=== PATIENT | male | born 1935 | race Caucasian/White ===

== ENCOUNTER 2023-09-30 04:48 | Inpatient (IN) ==
[2023-09-30] MEDS ORDERED: PHARMACIST DISCHARGE MED REC CONSULT PRN (13:07)
--- NOTE | 2023-09-30 13:21 | History & Physical Report ---
Date of Service September 30, 2023 Assessment & Plan (1) Stroke-like symptoms: Plan: -Admit to med/tele -Currently stable and back to his neurologic baseline per family at [facility] -Initially presented to the [place] ED due to an episode of starring off and not responding to his . Episode lasted approximately 30 min and resolved by the time EMS arrived. -Vitals and labs were unremarkable -CT of the head/brain and CTA of the head were negative for acute findings -CTA of the neck noted BL carotid disease without significant narrowing or stenosis -At this time the etiology of the patient's episode of altered consciousness is unknown but the differential includes and is not limited to acute CVA, complication from his known vascular dementia, anxiety, behavioral disturbance -The ED discussed with [facility] Neurology who recommended MRI for further evaluation >Patient was accepted to the [facility] Hospital[facility] team as it was unknown at that time that the patient's PCP is a [facility] Provider -Spoke with MRI as the patient had a Pacemaker placed; unfortunately the patient's pacemaker is NOT MRI compatible due to one of his Medtronic leads -Was given full dose aspirin at [place] ED -Will wait to continue Eliquis and Aspirin until we speak with [facility] with his abnormal ECG on arrival -Will obtain TTE for further evaluation -Follow am A1c and fasting lipid panel -Will order dysphagia screen prior to ordering diet -Q4H neuro checks -Fall precautions -PT/OT consults placed -AM CBC, BMP, Mag, PT/INR (2) Abnormal ECG: Plan: -ECG obtained on admission shows an atrial paced rhythm nonspecific intraventricular block concerning for possible pacemaker failure -Patient has been asymptomatic since arrival to our facility -Admission labs are currently in process, will follow up -Will consult [facility] Cardiology for further assistance and treatment (3) Vascular dementia: Plan: -Continue Namenda and Donepezil (4) HTN (hypertension): Plan: -Currently stable -Continue (5) Dyslipidemia: Plan: -Currently on 20 mg HS simvastatin QHS -Follow fasting lipid panel and adjust dosing as needed (6) Carotid atherosclerosis: Plan: -Noted on CTA of the neck per transfer records from [facility] -No significant stenosis to warrant urgent treatment -Would speak with Vascular surgery prior to discharge to arrange outpatient follow up (7) Atrial fibrillation: Plan: -Currently in an atrial paced rhythm with new, nonspecific intraventricular block -Did have HS dose of Eliquis last night and am dose of cardiac meds per transfer records -Will speak with Cardiology to determine which medications to continue at this tme -Continue to monitor on tele (8) S/P placement of cardiac pacemaker: Plan: -Follow pacemaker interrogation -Cardiology consulted (9) Hypothyroidism: Plan: -Continue levothyroxine (10) BPH (benign prostatic hyperplasia): Plan: -Continue finasteride Plan The patient was discussed with Dr. Loredo at the time of the admission History of Present Illness Chief Complaint: Stroke workup Primary Care Provider: DO Александр Paez Jr. 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 History was obtained through discussions with the patient/family at bedside and the transfer documentation provided. Between [id number] on 09/28/23 the patient sat at the kitchen table in preparation to eat lunch. His sat down next to him and noticed that he was not responding to her questions and was starring off. She denies seeing other focal neurologic defects such as facial droop, increased slurred speech compared to baseline, and unilateral weakness. Due to the ongoing episode she called EMS who responded approximately 30 min after the episode began. When EMS arrived the patient was responding appropriately and acting himself per family. On arrival to the [place] ED he was noted to be stable and neurologically intact. Labs including CBC, CMP, high sen trop, and UA were unremarkable. ECG was read as an atrial paced rhythm with possible right ventricular conduction delay. CT head/brain wo con was read as negative for acute findings. CT head/brain w/wo con was read as showing mild atherosclerotic disease without significant stenosis. CTA of the neck was read as showing Moderate atherosclerotic changes noted in the aortic arch and the vessels of the neck in the form of densely calcified plaques. Major changes are noted at the levels of carotid bulbs as mentioned but normal opacification is noted of both internal carotid vessels with almost 50% luminal narrowing and contrast seen opacifying the distal course as well. Both subclavian arteries show atheromatous changes at origin. Left subclavian shows a segment of 7.8 mm segment with almost 70-80% narrowing, however, left vertebral artery shows normal opacification and caliber. Right vertebral artery is unremarkable." Per the transfer documentation, the ED provider spoke with a Dr. Robb of [facility] who recommended loading the patient with aspirin and obtaining an MRI of the brain for further evaluation. The patient was loaded with aspiring and did continue to receive his normal home medications including Eliquis, simvastatin, metoprolol, amiodarone, amlodipine, and lisinopril. They reportedly did not have the capability to perform the MRI at [facility] and the patient was reportedly accepted to [facility], but they could not get the MRI until 10/01. The patient was subsequently transferred to [facility] under the [facility] Hospitalist team, despite the patient being a [facility] Patient; this was apparently unknown at the time of transfer acceptance. At the time of the exam the patient was lying in bed in no acute distress with his and Son sitting bedside. History was mainly obtained from the patient's family with his hx of dementia. They confirm the above history and confirm that the patient is currently at his neurologic baseline. His neurologic baseline is reportedly alert and oriented to person, place, and event. He does slur his words at baseline and will take extra time to speak intermittently. He has never smoke and occasionally used alcohol in the past, but they deny significant alcohol use. His states that the patient was recently started on 200 Amiodarone BID with plans to taper to 200 mg Daily starting on 10/02/23 after a recent abnormal heart rhythm noted on his pacemaker. The patient currently has zero complaints. They deny recent fever, chills, chest pain, coug h, SOB, abd pain, nausea,vomiting, diarrhea, dysuria, hematuria, melena, LE swelling, and recent trauma. They confirm he is a DNR/DNI. [facility] Hospitalist team spoke with the [facility] Hospitalist team, appreciate their assistance. They are in agreement with taking over care of the patient on 10/01/23 as they were not involved in discussions for the initial transfer from [facility]. Please refer to Dr. Loredo's attestation for any changes to the treatment plan Allergies Allergy/AdvReac Type Severity Reaction Status Date / Time No Known Allergies Allergy Unknown ? Verified 12/07/08 14:04 Home Medications Medication Instructions Recorded Confirmed Type Amlodipine (Norvasc) 10 mg PO DAILY ##0 01/26/09 09/30/23 History GLUCOSAMINE 2 tab PO DAILY ##0 01/26/09 History Multivitamin 1 tab PO DAILY ##0 01/26/09 History Eliquis 2.5 mg PO BID 09/30/23 09/30/23 History amiodarone 200 mg tablet 200 mg PO BID 09/30/23 09/30/23 History donepezil 10 mg PO DAILY 09/30/23 09/30/23 History finasteride 5 mg tablet 5 mg PO DAILY 09/30/23 09/30/23 History levothyroxine 50 mcg tablet 50 mcg PO DAILY 09/30/23 09/30/23 History lisinopril 20 mg tablet 20 mg PO BID 09/30/23 09/30/23 History memantine 5 mg tablet 5 mg PO BID 09/30/23 09/30/23 History metoprolol succinate 25 mg 25 mg PO DAILY 09/30/23 09/30/23 History tablet,extended release 24 hr simvastatin 20 mg PO HS 09/30/23 09/30/23 History tamsulosin 0.4 mg capsule 0.4 mg PO DAILY 09/30/23 09/30/23 History Past Med/Surg History Social History Second Hand Exposure: No; Do You Dip or Chew Tobacco: No; Tobacco Cessation Education Requested by Patient: No Hx Alcohol Use: No Hx Substance Use: No Preferred Language: Beninese Communication Ability: Impaired 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 Beliefs That Will Affect Care: None Current Living Situation: Spouse Other Information That Helps Us Care for You: No Feels Safe at Home: No Is there a partner from a previous relationship who is making you feel unsafe now?: No Any Concerns about Your Family Situation: No Would You Like to Speak to Someone About Your Situation: No Safety Concerns: Feels Safe At This Time Assistive Devices: Stair Lift Physical Exam Physical Exam: Physical Exam: General: In no acute distress, stated age, chronically ill appearing but non- toxic HEENT: Normocephalic, atraumatic, BL temporal wasting noted, no scleral icterus, pupils around round, symmetrical, and reactive to light, moist mucus membranes, trachea midline, no thyromegaly Chest/Pulm: Patient with pacemaker placement site in the left upper chest which appears intact and without sings of infection, No respiratory distress, symmetrical chest expansion, clear breath sounds throughout Cardiac: RRR, 3/6 systolic murmur noted Abdomen: Negative for ascites and bruising, normoactive bowel sounds, soft, non-tender to palpation throughout Musculoskeletal: Symmetrical and without signs of acute trauma, upper and lower extremities with full ROM, no atrophy, spasticity, or flaccidity Extremities: Radial, dorsalis pedis, and posterior tibial pulses are intact and symmetrical, no edema noted in the BL LE's Skin: Warm, dry, no rashes , lesions, or scars noted Neuro: Alert and oriented to person, place, month, but not to month or year, no focal defects, CN II-XII tested and intact, negative cerebellar testing and pronator drift BL, no tremors noted Psych: No acute distress, calm and cooperative during the exam Results & Data Results & Data ECG Additional Comments: Suspect unspecified pacemaker failure Atrial-paced rhythm Non-specific intra-ventricular conduction block Cannot rule out Septal infarct , age undetermined Abnormal ECG When compared with ECG of 24-MAR-2010 12:10, Electronic atrial pacemaker has replaced Sinus rhythm Code Status & VTE Plan Code Status DNR/DNI VTE Prophylaxis Plan VTE Prophylaxis will be ordered: Yes Supervising Physician Co-Signing Physician Notes Patient seen and examined, chart reviewed, case discussed with Price Stapleton PA-C and I agree with the assessment and plan as above except as otherwise noted Labs and images reviewed Will convert is a 88-year-old male with a past medical history of strokelike symptoms, vascular dementia, hypertension, hyperlipidemia, CAD, A-fib and s/p pacemaker placement 08/06/2023. He was seen at [facility] for strokelike sym ptoms. He was initially referred via the transfer center to [facility] for completion of a stroke evaluation with an MRI as MRI was not available at that institution. He was subsequently excepted and arrived next day due to transportation difficulty. Patient had increased slurred speech and confusion last approximately 30 minutes and resolved by time of hospital assessment. CT/CTA head were unremarkable. Upon arrival to [facility] and on further history and physical patient is not able to obtain an MRI as his recent pacemaker is not MRI compatible due to the leads. Remains at baseline at time of afternoon reevaluation. EKG with nonspecific IvyBlock? Pacemaker failure, was discussed with [facility] cardiology was consulted and will follow for any adjustments if needed. Interrogation is pending. History is limited from patient due to dementia, somewhat tangential exam but is aphasia and has intermittent slightly slurred speech. Post Closing Specialist strength/hip flexion is intact bilaterally although pat ient fatigues extremely easily. Stock murmur is present. Lungs are clear. even if MRI were to show a stroke he does not have evidence of a bleed or large vessel occlusion and agree with continuing aspirin/Eliquis/statin with dose based on lipid panel and blood pressure control. 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 agree with assessment and management as above. [facility] Care Time/CCT Total # of Minutes Spent Total Time Spent with Patient: Total time spent is greater than 50% in coordination of care (as documented) at patient's floor/unit and/or counseling patient: [place] [address] INT INP/OBS CARE 3/75MIN Patient Type New Medical Decision Making High Complexity Diagnoses Stroke-like symptoms R29.90 Abnormal ECG R94.31 Vascular dementia F01.50 HTN (hypertension) I10 Dyslipidemia E78.5 Carotid atherosclerosis I65.29 Atrial fibrillation I48.91 S/P placement of cardiac pacemaker Z95.0 Hypothyroidism E03.9 BPH (benign prostatic hyperplasia) N40.0
--- OUTSIDE RECORDS SUMMARY | 2023-09-30 13:22 | External Medical Summary | Summary of Care ---
Author Name Unknown Organization [facility] Address [address] [place] [address] Phone [phone] Care Team Providers Care Sampler And Test Preparer Name Role Phone Leilani Tomas DO Primary Care Provider Un available Reason for Visit * Reason Comments eRx-Medication Refill Encounter Details Date Type Department Care Team (Late st Contact Info) Description 08/13/2023 Refill Family Practice [facility] [address] [place] [address] Moon Tavares DO [address] [facility] [place] [address] Essential hypertension with goal blood pressure less than 140/90 Allergies No known active allergiesdocumented as of this encounter (statuses as of 08/14/2023) Medications Medication Sig Dispensed Refills Start Date End Date Status CENTRUM PO TABS 1 daily 0 Active lisinopril (PRINIVIL) 20 MG TabletIndications:Hyp ertension goal BP (blood pressure) < 140/90 Take 1 Tab by mouth 2 times a day. 180 Tab 3 10/25/2016 Active Tamsulosin HCl 0.4 MG Oral Capsule (Flomax)Indications:B PH with urinary obstruction,Urinary retention Take 1 Capsule by mouth in the morning. Every morning.. 90 Capsule 3 12/20/2022 Active Finasteride 5 MG Oral Tablet (Proscar)Indications: BPH with urinary obstruction,Urinary retention Take 1 Tablet by mouth in the morning. 90 Tablet 3 12/20/2022 Active Donepezil HCl 10 MG Oral Tablet (Aricept)Indications: Memory loss,MCI (mild cognitive impairment) TAKE 1 TABLET BY MOUTH ONCE DAILY. Take with largest meal of the day. 90 Tablet 3 01/08/2023 Active Simvastatin 20 MG Oral Tablet (Zocor)Indications:Dy slipidemia, goal LDL below 100 TAKE 1 TABLET BY MOUTH AT BEDTIME 90 Tablet 2 02/26/2023 Active Metoprolol Tartrate 25 MG Oral Tablet (Lopressor) Take 0.5 Tablets by mouth in the morning. 0 Active Memantine HCl 5 MG Oral Tablet (Namenda)Indications: Memory loss TAKE 1 TABLET BY MOUTH TWICE DAILY 180 Tablet 1 05/16/2023 Active Glucosamine 500 MG Oral Capsule Take 1 Capsule by mouth daily at noon. 0 Active Levothyroxine Sodium 50 MCG Oral Tablet (Levoxyl)Indications: Subclinical hypothyroidism TAKE ONE TABLET BY MOUTH DAILY at least 30 minutes prior to breakfast or other meds. 90 Tablet 3 06/28/2023 Active amLODIPine Besylate 5 MG Oral Tablet (Norvasc)Indications: Essential hypertension with goal blood pressure less than 140/90 Take 1 Tablet by mouth in the morning. 90 Tablet 1 08/03/2023 Active amLODIPine Besylate 5 MG Oral Tablet (Norvasc)Indications: Essential hypertension with goal blood pressure less than 140/90 Take 1 Tablet by mouth in the morning. 90 Tablet 1 08/14/2023 Active documented as of this encounter (statuses as of 08/14/2023) Active Problems Problem Noted Date Diagnosed Date Other pancytopenia 06/27/2023 Supraventricular tachycardia 03/07/2023 Dementia of the Alzheimer's type, with late onset, uncomplicated 11/21/2021 Other atherosclerosis of rommel humza arteries of extremities, bilateral legs 11/21/2021 BPH without obstruction/lower urinary tract symp toms 02/06/2020 Sigmoid diverticulosis 12/09/2019 Overview: Noted on colonoscopy in 2012. Internal hemorrhoid 12/09/2019 Overview: Noted on colonoscopy 2012. 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 Cerebrovascular disease 07/23/2017 MCI (mild cognitive impairment) 07/23/2017 Essential hypertension with goal blood pressure less than 140/90 04/03/2016 Subclinical hypothyroidism 04/03/2016 History of PSVT (paroxysmal supraventricular tac hycardia) 09/25/2012 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) 09/29/2010 OSTEOARTHRITIS S/P TOTAL KNEES, 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), LE FT (03/19) 09/29/2010 documented as of this encounter (statuses as of 08/14/2023) Resolved Problems Problem Noted Date Diagnosed Date Resolved Date Lower GI bleed 12/15/2019 02/06/[address] scan, kidney 12/15/201906/2020 Bladder stone 12/15/2019 02/06/2020 Distended bladder 12/15/2019 02/06/2020 Blood in stool 12/09/2019 02/06/2020 Ventricular tachycardia 01/23/201901/10 Sebaceous cyst 04/02/2017 01/28/2018 Overview: Neck Elevated TSH 12/23/2013 04/03/2016 Acute prostatitis 12/17/2012 06/24/2013 Overview: Treated 11/20 Overweight (BMI 25.0-29.9) 09/25/2012 0 03/18/2015 Hypertension goal BP (blood pressure) < 140/90 05/21/2012 04/03/2016 Obesity, Class I, 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 (see actual BMI) 10/17/2011 09/25/2012 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 12/1901/10/2011 05/21/2012 OVERWEIGHT 09/29/2010 10/17/2011 EPISODE OF HYPERTENSIVE ENCEPHALOPATHY (2004) 09/29/19 11 03/03/2020 OSTEOARTHRITIS S/P TOTAL KNEE ON 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) 09/29/19 11 09/29/2010 EPISODE OF UVEITIS (1984) 09/29/2010 OCCASIONAL PVC's ON EKG 09/29/201009/11 HTN, goal below 130/80 03/30/201010/17 GENERAL OSTEOARTHRITIS 03/30/201009/29 FAMILY HX OF CEREBROVASCULAR DISEASE 03/30/2010 05/21/2012 Screening for prostate cancer 03/30/2010 05/21/2012 Dyslipidemia, goal LDL below 130 09/29/2010 documented as of this encounter (statuses as of 08/14/2023) Immunizations Name Administration Dates Next Due COVID-19 mRNA, LNP-s, No Pre serve, 2-Dose Series (Pfizer) 07/14/2021,10/24/2020,10/03/2020 Diptheria/Tetanus (Adult) 06/22/2006 Pneumococcal Conjugate Vacc, 13 Valent (Prevnar) 11/19/2015 Pneumococcal Polysaccharide PPV23 (Pneumovax) 07/23/2017,03/18/2007 Season Influenza, Quad, PF, Adjuvanted, 65+ Yrs, IM (FLUAD) 05/19/2020 Seasonal Influenza, Quadriva lent Hd (Fluzone Hd) 06/22/2023,07/03/2022,05/13/2021 Seasonal Influenza, Split, I IV3, With Preserve, Inj 07/06/2015,05/18/2014,06/24/2013,05/29,06/06/2011,07/11/2010,06/22/2006 Seasonal Influenza, Trivalen t, Adjuvanted, 65+ yrs 07/09/2019,06/11/2019 Seasonal Influenza, Trivalen t, High Dose, No Preserve, IM 06/07/2018,06/13/2017,07/10/2016 TDAP (age 10 and older)(Boostrix) 07/30/2015 Varicella Zoster Vaccine (Adult) 06/10/2010 Zoster Vaccine Recombinant (Shingrix) 03/19/2021 ,10/24/2020 documented as of this encounter Social History Tobacco Use Types Packs/Day Years Used Date Smoking Tobacco: Never Smokeless Tobacco: Never Alcohol Use Standard Drinks/Week Comments Yes 0 (1 standard drink = 0.6 oz pur e alcohol) rarely PHQ-2 Answer Date Recorded PHQ Adult Total Score 0 04/06/2022 Hunger Vital Sign Answer Date Recorded Within the past 12 months, y ou worried that your food would run out before you got the money to buy more. Never true 04/06/20 22 Within the past 12 months, t he food you bought just didn't last and you didn't have money to get more. Never true 04/06/2022 Sex and Gender Information Value Date Recorded Sex Assigned at Male 04/06/2022 8:23 AM EDT Gender Identity Male 04/06/2022 8:23 AM EDT Sexual Orientation Straight 04/06/2022 8: 23 AM EDT Job Start Date Occupation Industry Not on file Not on file Not on file documented as of this encounter Miscellaneous Notes * Telephone Encounter - Eugenio Chi [facility] - 08/14/2023 4:58 AM ESTSigned Prescriptions: Disp Refills amLODIPine Besylate 5 MG Oral Tablet (Norv*90 Tab*1 Sig: Take 1Tablet by mouth in the morning.Authorizing Provider: MOON TAVARES User: EUGENIO CHI * Telephone Encounter - Eugenio Chi [facility] - 08/14/2023 4:53 AM EST Request for 10mg but pt called into office requesting 5mg tabs since he was taking 1/2 of the 10mg dosage form. Rx was sent. Modified this rx to reflect dosage change. Eugenio Chi [facility] Clinical Pharmacist Telepharmacy [phone] 08/14/2023 4:57 AM documented in this encounter Plan of Treatment Upcoming Encounters Date Type Department Care Team (Late st Contact Info) Description 09/14/2023 1:20 PM EST Office Visit Neurology [facility] [place] [address] [place] [address] Romina Peña PA-C [address] [place] [address] 10/10/2023 11:40 AM EST Office Visit Family Practice [address] [place] [address] Moon Tavares DO [address] [place] [address] Health Maintenance Due Date Last Done Comments Depression Screening 04/06/2023 04/06/2022, 04/03/20 16 COVID-19 Vaccine (2022- season) 2023 07/14/2021, 10/24/2020, 10/03/2020 TSH 06/21/2024 06/21/2023, 0809/2022, 04/30/2023, Additional history exists DTaP,Tdap,and Td Vaccines (2 - Td or Tdap) 07/30/2025 07/30/2015, 06/22/2006 Albumin/Creatinine Ratio 10/10/2025 10/10/2022 Pneumococcal Vaccine: 65+ Years Completed 07/23/2017, 11/19/2015, 03/18/2007 Zoster Vaccines Completed 03/19/2021, 10/11, 06/10/2010 Influenza Vaccine (FLU shot) Completed , 07/03/2022, 05/13/2021, Additional history exists GARDASIL-HPV IMMUNIZATION SERIES Aged Out No longer eligible based on patient's age to complete this topic Hepatitis B Aged Out No longer eligi ble based on patient's age to complete this topic MENINGOCOCCAL (MENACTRA/MENVEO) Aged Out No longer eligible based on patient's age to complete this topic documented as of this encounter Medical Devices Not on filedocumented as of this encounter Visit Diagnoses Diagnosis Essential hypertension with goal blood pressure less than 140/90 documented in this encounter Advance Directives Documents on File Type Date Recorded 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 Question Answer Comments Discussion of Advance Directives occurred with: Not Discussed Does the patient have a Living Will? No Does the patient have Health Care Power of Database Engineer? No Care Teams Sampler And Test Preparer Relationship Specialty Start Date End Date Leilani Tomas DO PCP - General Family Medicine 05/01/22 documented as of this encounter
--- OUTSIDE RECORDS SUMMARY | 2023-09-30 13:22 | External Medical Summary | Summary of Care ---
Author Name Unknown Organization [facility] Address [address] [facility] [address] Phone [phone] Care Team Providers Care Shafting Cleaner Name Role Phone Thom Leilani Parsannajanak Primary Care Provider [phone] Reason for Visit * Reason Comments Return Neuro Dementia Encounter Details Date Type Department Care Team (Latest Contact Info) Description 09/14/2023 1:20 PM EST Office Visit Neurology [facility] [place] [address] [place] [address] Romina Peña PA-C [address] [facility] [place] [address] 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 90 Tablet 1 08/14/2023 Active Apixaban 2.5 MG Oral Tablet (Eliquis) Take by mouth 2 times a day. 0 Active documented as of this encounter (statuses as of 09/14/2023) Active Problems Problem Noted Date Diagnosed Date [...] as of this encounter (statuses as of 09/14/2023) Resolved Problems Problem Noted Date Diagnosed Date [...] as of this encounter (statuses as of 09/14/2023) Immunizations Name Administration Dates Next Due COVID-19 [...] on file documented as of this encounter Last Filed Vital Signs Vital Sign Reading Time Taken Comments Blood Pressure 124/62 09/14/2023 1:13 PM EST Pulse 58 09/14/2023 1:13 PM EST Temperature 36.9 C (98.5 F) 09/14/2023 1:13 PM ES T Respiratory Rate 18 09/14/2023 1:13 PM EST Oxygen Saturation 97% 09/14/2023 1:13 PM EST Inhaled Oxygen Concentration - - Weight 58.3 kg (128 lb 8 oz) 09/14/2023 1:13 PM EST Height - - Body Mass Index 23.89 06/27/2023 6:52 AM EDT documented in this encounter Progress Notes * Romina Peña PA-C - 09/14/2023 1:18 PM EST HISTORY & PHYSICAL EXAMINATION - NEUROLOGY Name: Александр Booker Date: 09/14/2023 Time: 1:18 PM Referring Provider: Leilani Tomas DO Chief Complaint: Chief Complaint Patient presents with Return Neuro Dementia This is a 88 year old right handed gentleman returns today for follow up for dementia. HPI & Source of HPI The patient, family member sone, and spouse was the historian, and they arereliable. He was seen Shon Sanchez 03/23/20. He was seen in 2017 for similar issues by Eben Livingston. Hehelps with the activities home and keep busy in the summer like to be outside. He does require straight cathing for your urinary retention. 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 He was started on Aricept 5 mg daily by his family care provider and is now on 10 mg with dinner. He did loose about 40 pounds but this was intentional. He is a non smoker, was a moderate EtOH drinker none recent, no other drugs, moderate caffeine use. He was started on Namenda 5 mg BID which his states had no side effects and they requested an increase in the dose but was unable to tolerate it. They sold his tricycle motor cycle. He is still having some night time dreams but heis not hitting or wandering off. He wakes his and she reassures him everything is ok and he will go back to sleep. He now has a defibular pacer for what sounds like sami/tachy syndrome. He is stable from previous visit. He has developed a night time cough which continues until he falls asleep. Denies CP, SOB, abdominal pain, one sided weakness, numbness tingling. I have reviewed the patient's medications and allergies, past medical, surgical, social and family history, updating these as appropriate. See Histories section of the electronic medical record for adisplay of this information. 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 Medications: Are you taking your medications? yes Current Outpatient Medications Medication Sig Dispense Refill CENTRUM PO TABS 1 daily lisinopril (PRINIVIL) 20 MG Tablet Take 1 Tab by mouth 2 times a day. 180 Tab 3 Tamsulosin HCl 0.4 MG Oral Capsule (Flomax) Take 1 Capsule by mouth in the morning. Every morning..90 Capsule 3 Finasteride 5 MG Oral Tablet (Proscar) Take 1 Tablet by mouth in the morning. 90 Tablet 3 Donepezil HCl 10 MG Oral Tablet (Aricept) TAKE 1 TABLET BY MOUTH ONCE DAILY. Take with largest mealof the day. 90 Tablet 3 Simvastatin 20 MG Oral Tablet (Zocor) TAKE 1 TABLET BY MOUTH AT BEDTIME 90 Tablet 2 Metoprolol Tartrate 25 MG Oral Tablet (Lopressor) Take 0.5 Tablets by mouth in the morning. Memantine HCl 5 MG Oral Tablet (Namenda) TAKE 1 TABLET BY MOUTH TWICE DAILY 180 Tablet 1 Levothyroxine Sodium 50 MCG Oral Tablet (Levoxyl) TAKE ONE TABLET BY MOUTH DAILY at least 30 minutes prior to breakfast or other meds. 90 Tablet 3 amLODIPine Besylate 5 MG Oral Tablet (Norvasc) Take 1 Tablet by mouth in the morning. 90 Tablet 1 Apixaban 2.5 MG Oral Tablet (Eliquis) Take by mouth 2 times a day. Glucosamine 500 MG Oral Capsule Take 1 Capsule by mouth daily at noon. (Patient not taking: Reported on 09/14/2023) amLODIPine Besylate 5 MG Oral Tablet (Norvasc) Take 1 Tablet by mouth in the morning. 90 Tablet 1 No current facility-administered medications for this visit. Review of patient's allergies indicates: No Known Allergies Review of Systems: A total number of 10 systems were reviewed pertinent negative and positives not addressed in HPI are listed in the following review. Physical Exam: Constitutional: BP 124/62 | Pulse 58 | Temp 36.9 C (98.5 F) (Tympanic) | Resp 18 | Wt 58.3 kg (128 lb 8 oz) | SpO2 97% | BMI 23.89 kg/m | BSA 1.59 m , appearance nourished and healthy Ears, Nose, Mouth and Throat: mucous membranes moist, no injection and skin normal, eyes normal Cardiovascular: irregular Respiratory: clear to auscultation (CTA) and no rales, ronchi or wheeze Musculoskeletal: no peripheral edema Skin: normal and intact Eyes: extraocular muscles intact (EOMI) NEUROLOGIC EXAMINATION: Mental status: Alert and interactive Oriented to person Speech some difficulty with sentence formation Cranial Nerves Normal findings for Cranial Nerves II - XII Coordination: on [id number] Gait/Stance: Posture normal. Gait normal: with steady with steps, base, arm swing, and tandem gait. Motor: Negative for pronator drift of out stretched arms with eyes closed. Strength: Normal - 5/5 all extremities LABORATORY: Recent labs reviewed Review of prior Studies: No recent imaging available. Impression: Александр Booker is a 88 year old gentleman with a history of dementia. His neurologic examination today reveals no new focal deficit. The history and examination are suggestive of diagnosis/problem list. Testing and Referrals ordered: none ICD-10-CM 1. Vascular dementia without behavioral disturbance (HCC) F01.50 2. 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 Medical Decision Making (determined by lowest of 2 of 3 elements): The medical decision making element of the number and complexity of problems addressed included at least 2 or more stable chronic illnesses (level 4). The medical decision making element of risk of complications, morbidity, and mortality of patient management is moderate (level 4) due to prescription drug management (moderate risk). The medical decision making element of the amount and complexity of data reviewed and analyzed included an independent interpretation of a test (level 4 at least). When 2 of 3 reach level 4, then this element is considered extensive (level 5). I personally spent a total of 30 minutes. This time was for a new office or established visit and was on the same calendar day. Education / Consultation - Topics covered as I spent 20 minutes, which is greater than 50% of this visit, counseling the patient on: Diagnostic Results Prognosis Importance of compliance with chosen treatment options Risk factor reductions Patient and family education Consulted with physician: Ryan Stearns MD was available for direct supervision Copy of note sent to PCP and Referring Provider. Total time of visit: 30 minutes. Romina Peña PA-C Neurology [address] [address] 09/14/2023 1:18 PM documented in this encounter Nursing Notes * Lakeisha Mcneil MED ASSIST - 09/14/2023 1:11 PM EST Chief Complaint Patient presents with Return Neuro Dementia documented in this encounter Plan of Treatment Upcoming Encounters Date Type Department Care Team (Late st Contact Info) Description 10/10/2023 11:40 AM EST Office Visit Family Practice [address] [place] [address] [place] [address] Moon Tavares DO [address] [place] [address] 08/21/2024 11:00 AM EST Office Visit Neurology [place] [address] [place] [address] Jihan No PA-C [address] [place] [address] Health Maintenance Due Date Last Done Comments Depression Screening 04/06/2023 04/06/2022, 04/03/20 16 COVID-19 Vaccine ( season) 2023 07/14/2021, 10/24/2020, 10/03/2020 TSH 06/21/2024 [...] as of this encounter Visit Diagnoses Diagnosis Vascular dementia without behavioral disturbance (HCC)- Primary Vascular dementia, uncomplicated Progressive vascular leukoencephalopathy (HCC) Progressive multifocal leukoencephalopathy documented in this encounter Advance Directives Documents on File Type Date Recorded Patient Websphere Architect Expl anation POLST 04/21/2023 [place] DERS FOR LIFE-SUSTAINING TREATMENT Latest Code [...] the patient have Health Care Power of Corporate Analyst? No Care Teams Shafting Cleaner Relationship Specialty Start Date End Date Leilani Tomas DO PCP - General Family Medicine 05/01/22 documented as of this encounter"
--- OUTSIDE RECORDS SUMMARY | 2023-09-30 13:22 | External Medical Summary | Summary of Care ---
Author Name Unknown Organization [facility] Address [address] [place] [address] Phone [phone] Care Team Providers Care Philosophy Lecturer Name Role Phone Leilani Tomas DO Primary Care Provider Un available Reason for Visit * Reason Onset Date Comments Med Request 08/03/2023 Encounter Details Date Type Department Care Team (Late st Contact Info) Description 08/03/2023 Telephone Family Practice [facility] [address] [facility] [place] [address] Leilani Tomas DO Med Request Allergies No known active allergiesdocumented as of this encounter (statuses as of 08/03/2023) Medications Medication Sig Dispensed Refills Start Date End Date Status CENTRUM PO TABS 1 daily 0 Active lisinopril (PRINIVIL) 20 MG TabletIndications:Hy pertension goal BP (blood pressure) < 140/90 Take 1 Tab by mouth 2 times a day. 180 Tab 3 10/25/2016 Active Tamsulosin HCl 0.4 MG Oral Capsule (Flomax)Indications: BPH with urinary obstruction,Urinary retention Take 1 Capsule by mouth in the morning. Every morning.. 90 Capsule 3 12/20/2022 Active Finasteride 5 MG Oral Tablet (Proscar)Indications :BPH with urinary obstruction,Urinary retention Take 1 Tablet by mouth in the morning. 90 Tablet 3 12/20/2022 Active Donepezil HCl 10 MG Oral Tablet (Aricept)Indications :Memory loss,MCI (mild cognitive impairment) TAKE 1 TABLET BY MOUTH ONCE DAILY. Take with largest meal of the day. 90 Tablet 3 01/08/2023 Active Simvastatin 20 MG Oral Tablet (Zocor)Indications:D yslipidemia, goal LDL below 100 TAKE 1 TABLET BY MOUTH AT BEDTIME 90 Tablet 2 02/26/2023 Active Metoprolol Tartrate 25 MG Oral Tablet (Lopressor) Take 0.5 Tablets by mouth in the morning. 0 Active Memantine HCl 5 MG Oral Tablet (Namenda)Indications :Memory loss TAKE 1 TABLET BY MOUTH TWICE DAILY 180 Tablet 1 05/16/2023 Active Glucosamine 500 MG Oral Capsule Take 1 Capsule by mouth daily at noon. 0 Active Levothyroxine Sodium 50 MCG Oral Tablet (Levoxyl)Indications :Subclinical hypothyroidism TAKE ONE TABLET BY MOUTH DAILY at least 30 minutes prior to breakfast or other meds. 90 Tablet 3 06/28/2023 Active amLODIPine Besylate 5 MG Oral Tablet (Norvasc)Indications :Essential hypertension with goal blood pressure less than 140/90 Take 1 Tablet by mouth in the morning. 90 Tablet 1 08/03/2023 Active amLODIPine Besylate 5 MG Oral Tablet (Norvasc)Indications :Essential hypertension with goal blood pressure less than 140/90 Take 1 Tablet by mouth in the morning. 0 04/30/2023 3 Discontinue d(Refill) documented as of this encounter (statuses as of 08/03/2023) Active Problems Problem Noted Date Diagnosed Date [...] as of this encounter (statuses as of 08/03/2023) Resolved Problems Problem Noted Date Diagnosed Date [...] as of this encounter (statuses as of 08/03/2023) Immunizations Name Administration Dates Next Due COVID-19 mRNA, LNP-s, No Pre serve, 2-Dose Series ([facility]) 07/14/2021,10/24/2020,10/03/2020 Diptheria/Tetanus (Adult) 06/22/2006 Pneumococcal Conjugate Vacc, [...] encounter Miscellaneous Notes * Telephone Encounter - Marianne Acevedo LPN - 08/03/2023 9:31 AM EST Pending Prescriptions: Disp Refills amLODIPine Besylate 5 MG Oral Tablet (Nor*90 Tab*1 Sig: Take 1 Tablet by mouth in the morning. Last Visit: 06/27/2023 (in office), 12/19/2019 (telemedicine) Next Visit: 10/10/2023 Last date the medication was ordered: 04/30/2023 Patient Active Problem List Diagnosis Code II [...] uncomplicated (HCC) G30.1, F02.80 Other atherosclerosis of [place] arteries of extremities, bilateral legs (HCC) I70.293 Supraventricular tachycardia I47.10 Other pancytopenia (HCC) D61.818 Labs: Lab Results Component Value Date/Time CREATININE - [facility] 0.8 07/18/2023 07:43 AM CREATININE - [facility] 0.9 06/01/2020 10:10 AM CREATININE, RANDOM URINE - [facility] 102 10/10/2022 03:44 PM CREATININE-OUTSIDE LAB 0.8 08/18/2020 12:00 AM Lab Results Component Value Date/Time POTASSIUM - [facility] 4.2 07/18/2023 07:43 AM POTASSIUM - [facility] 4.2 06/01/2020 10:10 AM POTASSIUM-OUTSIDE LAB 4.5 08/18/2020 12:00 AM Lab Results Component Value Date/Time TSH - [facility] 1.82 06/21/2023 10:44 AM TSH - [facility] 1.28 06/01/2020 10:10 AM Lab Results Component Value Date/Time LDL (CALCULATED)-[facility]IDE [facility] 115 09/13/2012 12:00 AM LDL CHOLESTEROL (CALCULATED) - [facility] 52 06/21/2023 10:44 AM LDL CHOLESTEROL (CALCULATED) - [facility] 53 04/30/2023 09:37 AM LDL CHOLESTEROL (CALCULATED) - [facility] 32 06/01/2020 10:10 AM LDL CHOLESTEROL (CALCULATED) - [facility] 46 01/27/2020 08:24 AM LDL CHOLESTEROL (DIRECT MEASURE) - [facility] 55 09/19/2022 10:51 AM LDL CHOLESTEROL (DIRECT MEASURE) - [facility] NOT APPLICABLE 06/01/2020 10:10 AM LDL CHOLESTEROL (DIRECT MEASURE) - [facility] NOT APPLICABLE 01/27/2020 08:24 AM LDL CHOLESTEROL (DIRECT MEASURE) - [facility] 52 03/26/2017 07:37 AM LDL CHOLESTEROL (DIRECT MEASURE) - [facility] 63 10/16/2016 07:37 AM Lab Results Component Value Date/Time ALT - [facility] 35 07/18/2023 07:43 AM ALT - [facility] 33 06/01/2020 10:10 AM Hemoglobin AIC Results: No results found for: "HEMOGLOBIN A1C" * Telephone Encounter - Andreea King PHARM Tech - 08/03/2023 9:10 AM EST Pt calling in to request a dose change on their Amlodipine. Current dose: half of a 10mg tablet daily Requested dose: 5mg tablet daily Reason for request: Pt's called requesting 5mg tablets Preferred pharmacy: [id number] [address] [place] [address] [phone] Thank you, Andreea King [employer] [facility] (Former[facility]) 08/03/2023,9:16 AM documented in this encounter Plan of Treatment Upcoming Encounters Date Type Department Care Team (Late st Contact Info) Description 09/14/2023 1:20 PM EST Office Visit Neurology [place] [address] [facility] [place] [address] Romina Peña PA-C [address] [facility] [place] [address] 10/10/2023 11:40 AM EST Office Visit Family Practice [address] [place] [address] [place] [address] Moon Tavares DO [address] [place] [address] Health Maintenance Due Date Last Done Comments Depression Screening 04/06/2023 04/06/2022, 04/03/20 16 COVID-19 Vaccine ( season) 2023 07/14/2021, 10/24/2020, 10/03/2020 TSH 06/21/2024 06/21/2023, 04/11, 04/30/2023, Additional history exists DTaP,Tdap,and Td Vaccines [...] hypertension with goal blood pressure less than 140/90- Primary documented in this encounter Advance Directives Documents on File Type Date Recorded Patient Class A Regional Drivers Expl anation POLST 04/21/2023 [place] DERS [...] the patient have Health Care Power of Efficiency Analyst? No Care Teams Philosophy Lecturer Relationship Specialty Start Date End Date Leilani Tomas DO PCP - General Family Medicine 05/01/22 documented as of this encounter
--- OUTSIDE RECORDS SUMMARY | 2023-09-30 13:23 | External Medical Summary | Summary of Care ---
Author Name Unknown Organization [facility] Address [address] [place] [address] Phone [phone] Care Team Providers Care Bilingual Account Manager Name Role Phone Reynold Tomas DO Primary Care Provider [phone] Reason for Visit * Reason Comments eRx-Medication Refill Encounter Details Date Type Department Care Team Description 06/27/[address] [facility] [address] [facility] [place] [address] Reynold Tomas DO [address] [place] [address] Subclinical hypothyroidism Allergies No known active allergiesdocumented as of this encounter (statuses as of 06/28/2023) Medications Medication Sig Dispensed Refills Start Date End Date Status CENTRUM PO TABS 1 daily 0 Active lisinopril (PRINIVIL) 20 MG TabletIndications:H ypertension goal BP (blood pressure) < 140/90 Take 1 Tab by mouth 2 times a day. 180 Tab 3 10/25/2016 Active Tamsulosin HCl 0.4 MG Oral Capsule (Flomax)Indications :BPH with urinary obstruction,Urinary retention Take 1 Capsule by mouth in the morning. Every morning.. 90 Capsule 3 12/20/2022 Active Finasteride 5 MG Oral Tablet (Proscar)Indication s:BPH with urinary obstruction,Urinary retention Take 1 Tablet by mouth in the morning. 90 Tablet 3 12/20/2022 Active Donepezil HCl 10 MG Oral Tablet (Aricept)Indication s:Memory loss,MCI (mild cognitive impairment) TAKE 1 TABLET BY MOUTH ONCE DAILY. Take with largest meal of the day. 90 Tablet 3 01/08/2023 Active Simvastatin 20 MG Oral Tablet (Zocor)Indications: Dyslipidemia, goal LDL below 100 TAKE 1 TABLET BY MOUTH AT BEDTIME 90 Tablet 2 02/26/2023 Active amLODIPine Besylate 5 MG Oral Tablet (Norvasc)Indication s:Essential hypertension with goal blood pressure less than 140/90 Take 1 Tablet by mouth in the morning. 0 04/30/2023 Active Metoprolol Tartrate 25 MG Oral Tablet (Lopressor) Take 0.5 Tablets by mouth in the morning. 0 Active Memantine HCl 5 MG Oral Tablet (Namenda)Indication s:Memory loss TAKE 1 TABLET BY MOUTH TWICE DAILY 180 Tablet 1 05/16/2023 Active Glucosamine 500 MG Oral Capsule Take 1 Capsule by mouth daily at noon. 0 Active Levothyroxine Sodium 50 MCG Oral Tablet (Levoxyl)Indication s:Subclinical hypothyroidism TAKE ONE TABLET BY MOUTH DAILY at least 30 minutes prior to breakfast or other meds. 90 Tablet 3 06/28/2023 Active Levothyroxine Sodium 50 MCG Oral Tablet (Levoxyl)Indication s:Subclinical hypothyroidism TAKE 1 TABLET BY MOUTH ONCE DAILY at least 30 minutes prior to breakfast or other meds. 90 Tablet 3 06/12/2022 06/28/20 23 Discontinued documented as of this encounter (statuses as of 06/28/2023) Active Problems Problem Noted Date Other pancytopenia 06/27/2023 Supraventricular tachycardia 03/07/2023 Dementia of the Alzheimer's type, with l ate onset, uncomplicated 11/21/2021 Other atherosclerosis of poarch arteries of extremities, bilateral legs 11/21/2021 BPH without obstruction/lower urinary tr act symptoms 02/06/2020 Sigmoid diverticulosis 12/09/2019 Overview: Noted on colonoscopy in 2012. Internal hemorrhoid 12/09/2019 Overview: Noted on colonoscopy 2012. Progressive vascular leukoencephalopathy 12/09/2019 Cerebrovascular disease 07/23/2017 MCI (mild cognitive impairment) 07/23/20 17 Essential hypertension with goal blood p ressure less than 140/90 04/03/2016 Subclinical hypothyroidism 04/03/2016 History of PSVT (paroxysmal supraventric ular tachycardia) 09/25/2012 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) 09/29/2010 OSTEOARTHRITIS S/P TOTAL KNEES, RIGHT (), LEFT (03/19) 09/29/2010 documented as of this encounter (statuses as of 06/28/2023) Resolved Problems Problem Noted Date Resolved Date Lower GI bleed 12/15/2019 02/06/[address] scan, kidney 12/15/2019 020 Bladder stone 12/15/2019 02/06/2020 Distended bladder 12/15/2019 02/06/2020 Blood in stool 12/09/2019 02/06/2020 Ventricular tachycardia 01/23/2019 02/08/20 19 Sebaceous cyst 04/02/2017 01/28/2018 Overview: Neck Elevated TSH 12/23/2013 04/03/2016 Acute prostatitis 12/17/2012 06/24/2013 Overview: Treated 11/20 Overweight (BMI 25.0-29.9) 09/25/201203/18 Hypertension goal BP (blood pressure) < 140/90 0 05/21/2012 04/03/2016 Obesity, Class I, 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 (see actual BMI) 10/17/2011 09/25/2012 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 12/09 1 01/10/2011 05/21/2012 OVERWEIGHT 09/29/2010 10/17/2011 EPISODE OF HYPERTENSIVE ENCEPHALOPATHY (2004) 03/03/2020 OSTEOARTHRITIS S/P TOTAL KNEE ON 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) 09/29/2010 EPISODE OF UVEITIS (1984) 09/29/20102011 OCCASIONAL PVC's ON EKG 09/29/2010 09/29/19 11 HTN, goal below 130/80 03/30/2010 2 GENERAL OSTEOARTHRITIS 03/30/2010 1 FAMILY HX OF CEREBROVASCULAR DISEASE 03/30/2010 05/21/2012 Screening for prostate cancer 03/30/2010 Dyslipidemia, goal LDL below 130 09/29/2010 documented as of this encounter (statuses as of 06/28/2023) Immunizations Name Administration Dates Next Due COVID-19 [...] = 0.6 oz pur e alcohol) rarely Food Insecurity Answer Date Recorded Within the past 12 months, y ou worried that your food would run out before you got money to buy more. Never true 04/06/2022 Within the past 12 months, t he food you bought just didn't last and you didn't have money to get more. Never true 04/06/2022 Sex Assigned at Date Recorded Male 04/06/2022 8:23 AM E DT Job Start Date Occupation Industry Not on file Not on file Not on file documented as of this encounter Miscellaneous Notes * Telephone Encounter - Darell Alston, [facility] - 06/28/2023 11:23 AM EDTSigned Prescriptions: Disp Refills Levothyroxine Sodium 50 MCG Oral Tablet (L*90 Tab*3 Sig: TAKE ONE TABLET BY MOUTH DAILY at least 30 minutes prior to breakfast or other meds.Authorizing Provider: REYNOLD TOMAS User: DARELL ALSTON documented in this encounter Plan of Treatment Upcoming Encounters Date Type Specialty Care Team Description 07/02/2023 Office Visit Dermatology Betsy Clement PA-C [address] [place] [address] 07/18/2023 Laboratory Laboratory Victoria Villan[place]va [address] [place] [address] [place] [address] 10/10/2023 Office Visit Family Medicine Moon Tavares DO [address] [place] [address] Health Maintenance Due Date Last Done Comments [...] as of this encounter Visit Diagnoses Diagnosis Subclinical hypothyroidism Other specified acquired hypothyroidism documented in this encounter Advance Directives Documents on File Type Date Recorded Patient Chef Concierge Expl anation POLST 04/21/2023 [place] DERS [...] the patient have Health Care Power of Publications Editor? No Care Teams Bilingual Account Manager Relationship Specialty Start Date End Date Reynold Tomas DO [address] [facility] [place] [address] PCP - General Family Medicine 05/01/22 documented as of this encounter
--- OUTSIDE RECORDS SUMMARY | 2023-09-30 13:23 | External Medical Summary ---
Author Name Unknown Address Unknown Organization [id number]:LABORATORY [facility] [place] - [address] [facility] [place] [address] Laboratory Report Ordering Provider Test Date Status FLAQUITO FLAHERTY 07/18/2023 07:43:58 Final Observation Date Value Abnormality Reference (Units ) Status SYNC LEUKOCYTES IN BLOOD BY AUTOMATED COUNT 07/18/2023 07:43:58 4.99 4.00-10.80 (K/uL) Final Segs 07/18/2023 07:43:58 66.0 40.0-75.0 (%) Final Lymphs % 07/18/2023 07:43:58 23.6 18.0-42.0 (%) Final Monos 07/18/2023 07:43:58 7.0 1.0-11.0 (%) Final Eosinophils 07/18/2023 07:43:58 2.8 0.0-6.0 (%) Final Basos 07/18/2023 07:43:58 0.4 0.0-2.0 (%) Final Immature Granulocyte, Percent 07/18/2023 07:43:58 0.2 0.0-2.0 (%) Final Absolute Segs 07/18/2023 07:43:58 3.29 1.80-7.70 (K/uL) Final Lymphs, absolute 07/18/2023 07:43:58 1.18 1.00-4.80 (K/ul) Final Monos, Abs 07/18/2023 07:43:58 0.35 0.00-1.10 (K/uL) Final Eos, Abs 07/18/2023 07:43:58 0.14 0.00-0.70 (K/uL) Final Basos, Abs 07/18/2023 07:43:58 0.02 0.00-0.20 (K/uL) Final Immature Granulocytes, Number 07/18/2023 07:43:58 0.01 0.00-0.20 (K/uL) Final Performing Location LABORATORY [facility] [place] - [address] [facility] [address]
--- OUTSIDE RECORDS SUMMARY | 2023-09-30 13:23 | External Medical Summary | Summary of Care ---
Author Name Unknown Organization [facility] Address [address] [place] [address] Phone [phone] Care Team Providers Care Health Care Coordinator Name Role Phone Leilani Tomas DO Primary Care Provider [phone] Encounter Details Date Type Department Care Team (Late st Contact Info) Description 07/23/2023 [facility] [address] [facility] [place] [id number] Leilani Tomas DO [address] [place] [address] Allergies No known active allergiesdocumented as of this encounter (statuses as of 07/26/2023) Medications Medication Sig Dispensed Refills Start Date [...] other meds. 90 Tablet 3 06/28/2023 Active documented as of this encounter (statuses as of 07/26/2023) Active Problems Problem Noted Date Diagnosed Date [...] as of this encounter (statuses as of 07/26/2023) Resolved Problems Problem Noted Date Diagnosed Date Resolved Date Lower GI bleed 12/15/2019 02/06/[address] scan, kidney 12/15/201906/2020 Bladder stone 12/15/2019 02/06/2020 Distended bladder 12/15/2019 02/06/2020 Blood in stool 12/09/2019 02/06/2020 Ventricular tachycardia 01/23/2019 0509/2018 Sebaceous cyst 04/02/2017 01/28/2018 Overview: Neck Elevated [...] as of this encounter (statuses as of 07/26/2023) Immunizations Name Administration Dates Next Due COVID-19 mRNA, LNP-s, No Pre serve, 2-Dose Series ([employer]) 07/14/2021,10/24/2020,10/03/2020 Diptheria/Tetanus (Adult) 06/22/2006 Pneumococcal Conjugate Vacc, [...] encounter Miscellaneous Notes * Telephone Encounter - Jannie MaralALYCIA pedro - 07/26/2023 12:29 PM EST Pt updated, verbalized understanding, 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 * Telephone Encounter - Leilani Tomas DO - 07/23/2023 9:59 PM EST Stable blood work. Hemoglobin 13.2, and stable. Would continue to monitor. had wished to monitor at this time. Glucose low and make sure patient eating. documented in this encounter Plan of Treatment Upcoming Encounters Date Type Department Care Team (Late st Contact Info) Description 09/14/2023 1:20 PM EST Office Visit Neurology [facility] [place] [address] [place] [address] Romina Peña PA-C [address] [facility] [place] [address] 10/10/2023 11:40 AM EST Office [address] [facility] [address] [place] [address] Moon Tavares DO [address] [place] [place] [address] Health Maintenance Due Date Last Done Comments [...] Not on filedocumented as of this encounter Advance Directives Documents on File Type Date Recorded 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 No Care Teams Health Care Coordinator Relationship Specialty Start Date End Date Leilani Tomas DO [address] [facility] [place] [id number] PCP - General Family Medicine 05/01/22 documented as of this encounter
--- OUTSIDE RECORDS SUMMARY | 2023-09-30 13:23 | External Medical Summary ---
Author Name Unknown Address Unknown Organization [id number]:LABORATORY [facility] - [address] [place] [address] Laboratory Report Ordering Provider Test Date Status FLAQUITO FLAHERTY 07/18/2023 07:43:58 Final Observation Date Value Abnormality Reference (Units ) Status Ferritin 07/18/2023 07:43:58 168 30-400 (ng /mL) Final Performing Location LABORATORY [facility] - [address] [place] [address]
--- OUTSIDE RECORDS SUMMARY | 2023-09-30 13:23 | External Medical Summary ---
Author Name Unknown Address Unknown Organization [id number]:LABORATORY [facility] - [address] [place] [address] Laboratory Report Ordering Provider Test Date Status FLAQUITO FLAHERTY 07/18/2023 07:43:58 Final Observation Date Value Abnormality Reference (Units ) Status Iron 07/18/2023 07:43:58 82 45-176 (ug /dL) Final Iron-binding capacity 07/18/2023 07:43:58 329 250-425 (ug/dL) Final Transferrin Sat % 07/18/2023 07:43:58 25 15 -55 (%) Final Performing Location LABORATORY [facility] - [address] [place] [address]
--- OUTSIDE RECORDS SUMMARY | 2023-09-30 13:23 | External Medical Summary ---
Author Name Unknown Address Unknown Organization K01:[facility] [place] [address] [facility] [place] [address] Laboratory Report Ordering Provider Test Date Status FLAQUITO FLAHERTY 07/18/2023 07:43:58 Final Observation Date Value Abnormality Reference (Units ) Status BUN 07/18/2023 07:43:58 18 6-20 (mg/dL) Final Creatinine 07/18/2023 07:43:58 0.8 0.6-1.2 (mg/dL) Final Glomerular filtration rate/1.73 sq M.predicted [Volume Rate/Area] in Serum, Plasma or Blood by Creatinine-based formula (CKD-EPI) 07/18/2023 07:43:58 87 >=60 (mL/min) Final eGFR is calculated based on the CKD-EPI 2020 equation SODIUM 07/18/2023 07:43:58 142 135-146 (m mol/L) Final Potassium 07/18/2023 07:43:58 4.2 3.5-5.1 (m mol/L) Final Cl 07/18/2023 07:43:58 103 98-107 (mm ol/L) Final CO2 07/18/2023 07:43:58 26 22-32 (mmo l/L) Final Anion gap 07/18/2023 07:43:58 13 7-15 (mmol /L) Final Glucose 07/18/2023 07:43:58 68 Below low normal 70- 120 (mg/dL) Final Albumin 07/18/2023 07:43:58 4.9 3.8-5.0 (g /dL) Final AST (Aspartate aminotransferase) 07/18/2023 07:43:58 37 10-50 (U/L) Fin al Result may be falsely elevat ed due to hemolysis. Alk Phos 07/18/2023 07:43:58 97 35-130 (U/ L) Final Bilirubin, Total 07/18/2023 07:43:58 0.4 <=1 .2 (mg/dL) Final Calcium 07/18/2023 07:43:58 9.4 8.4-10.2 ( mg/dL) Final Protein 07/18/2023 07:43:58 6.9 6.0-8.3 (g /dL) Final ALT (Alanine aminotransferase) 07/18/2023 07:43:58 35 10-50 (U/L) Final Performing Location LABORATORY [facility] [place] - [address] [facility] [address]
--- OUTSIDE RECORDS SUMMARY | 2023-09-30 13:23 | External Medical Summary | Summary of Care ---
Author Name Unknown Organization [facility] Address [address] [place] [address] Phone [phone] Care Team Providers Care Blending Kettle Tender Name Role Phone Leilani Tomas DO Primary Care Provider [phone] Reason for Visit * Reason Comments Follow Up Routine skin exam. W aist up skin exam. Hx: BCC * Evaluate & Treat - Unlimited Visits (Within 30 days (routine)) - Authorized Specialty Diagnoses / Procedures Referred By Daisy flores Referred To Contact Dermatology Diagnoses Basal cell carcinoma (BCC), unspecified site Leilani Tomas DO [address] [place] [address] Referral ID Status Reason Start Date Expiration Date Visits Requested Visits Authorized [id number] Authorized Specialty Services Required 3 [phone] Encounter Details Date Type Department Care Team (Late st Contact Info) Description 07/02/2023 1:50 PM EDT Office Visit Dermatology [facility] [address] [place] [address] Betsy Clement PA-C [address] [place] [address] Seborrheic keratosis*; Diffuse photodamage of skin; History of nonmelanoma skin cancer; Skin exam, screening for cancer Allergies No known active allergiesdocumented as of this encounter (statuses as of 07/02/2023) Medications Medication Sig Dispensed Refills Start Date [...] as of this encounter (statuses as of 07/02/2023) Active Problems Problem Noted Date Diagnosed Date [...] as of this encounter (statuses as of 07/02/2023) Resolved Problems Problem Noted Date Diagnosed Date [...] as of this encounter (statuses as of 07/02/2023) Immunizations Name Administration Dates Next Due COVID-19 [...] on file documented as of this encounter Progress Notes * Jonathan Wright MD - 07/02/2023 2:28 PM EDT I have reviewed the charting notes and orders and associated images and agree with the assessment and plan of Betsy Otoole PA-C . Jonathan Wright MD., Dermatology [facility] Outpatient Specialty Departments [address] [place] [address] [place] [address] * Betsy Clement PA-C - 07/02/2023 1:51 PM EDT Nursing Notes: Federica Mendoza LPN 07/02/23 1402 Signed Patient identified by name and date. Chief Complaint Patient presents with Follow Up Routine skin exam. Waist up skin exam. Hx: BCC SUBJECTIVE: HPI: Александр Booker is a 88 year old male who is an established patient seen for follow-up full skinexam. Patient last visit on 10/16/22. No new or concerning lesions H/o BCC L [facility] REVIEW OF SYSTEMS: See HPI- all other findings negative Constitutional: (-) fever, chills, sweats, weight loss Cardiovascular: (-) lower extremity edema Skin: (-) no rash or new or changing moles or skin lesions MEDICA TIONS: Current Outpatient Medications Medication Sig Dispense Refill [...] BY MOUTH AT BEDTIME 90 Tablet 2 amLODIPine Besylate 5 MG Oral Tablet (Norvasc) Take 1 Tablet by mouth in the morning. Metoprolol Tartrate 25 MG Oral Tablet (Lopressor) Take 0.5 Tablets by mouth in the morning. Memantine HCl 5 MG Oral Tablet (Namenda) TAKE 1 TABLET BY MOUTH TWICE DAILY 180 Tablet 1 Glucosamine 500 MG Oral Capsule Take 1 Capsule by mouth daily at noon. Levothyroxine Sodium 50 MCG Oral Tablet (Levoxyl) TAKE ONE TABLET BY MOUTH DAILY at least 30 minutes prior to breakfast or other meds. 90 Tablet 3 No current facility-administered medications for this visit. ALLERG Y: Patient has no known allergies. OBJECTIVE: GEN: Healthy, alert, no distress, appears oriented, pleasant, and cooperative. PSYCH: Appropriate mood and affect, alert SKIN: Detailed exam of scalp, hair, face including lids and lips, ears, neck, chest, back, abdomen,bilateral upper extremities including the nails and digits was completed and are within normal limits with the following exceptions: 1. Scattered benign appearing lesions over examined skin including scattered benign and relatively monomorphic appearing melanocytic nevi, waxy flesh- colored, greyish brown benign and non-inflamed appearing stuck-on papules and plaques, benign and uniform appearing brown macules and patches in sun exposed areas, bright red benign appearing dome-shaped papules and macules, and solar elastosis and evident photodamage of sunexposed skin. 2. Scar L helix from prior nonmelanoma skin cancer ASSESSMENT/PLAN: 1. Seborrheic Keratosis -Reassured of the benign nature of lesion -Discussed with patient that they may get more of these lesions in the future -If there are any lesions that become irritated, bleed, or painful to return to clinic for evaluation -No current treatment necessary at this time 2. Photodamage - The signs and symptoms of skin cancer were reviewed and the patient was advised to practice sun protection and sun avoidance, use daily sunscreen, and perform regular self skin exams. 3. H/o nonmelanoma skin cancer - No evidence of disease, continue to monitor 4. Routine Skin Examination For Skin Cancer -Educated patient on ABCDE's. -Advised patient that if they notice any of these changes to please call for a follow-up appointment as soon as possible. -Counseled patient on criteria for good sunscreen including SPF 30 or higher, broad spectrum (UVA and UVB) and water resistant (up to 40 to 80 minutes). Advised to reapply sunscreen every 2 hours andafter swimming or profuse sweating. Advised to wear protective clothing when out in the sun including long sleeved shirt, pants, wide-brimmed hat and sunglasses. Informed to seek shade during 10 AM to 4 PM when the sun's rays are the strongest. -Advised to perform routine (at least once a year) skin self-examinations. Advised to contact theirdermatologist immediately if they notice any new or changing skin lesions. Patient with today. Follow-up: 1 year Photos taken, patient consented to photos taken. Applicable photos (if any) and chart reviewed by Dr. Jonathan Wright The patient was encouraged to contact me with any further questions or concerns. Betsy Clement PA-C 07/02/2023 1:52 PM documented in this encounter Nursing Notes * Federica Mendoza LPN - 07/02/2023 2:02 PM EDT Patient identified by name and date. Chief Complaint Patient presents with Follow Up Routine skin exam. Waist up skin exam. Hx: BCC documented in this encounter Plan of Treatment Upcoming Encounters Date Type Department Care Team (Late st Contact Info) Description 07/18/2023 8:00 AM EST Laboratory Laboratory [address] [place] [id number] [place] [address] [place] [place] [address] 10/10/2023 11:40 AM EST Office Visit Family Practice [address] [place] [address] Moon Tavares DO [address] [place] [address] Health Maintenance Due Date Last Done Comments [...] as of this encounter Visit Diagnoses Diagnosis Seborrheic keratosis- Primary Other seborrheic keratosis Diffuse photodamage of skin Other chronic dermatitis due to solar radiation History of nonmelanoma skin cancer Personal history of other malignant neoplasm of skin Skin exam, screening for cancer Screening for malignant neoplasm of the skin documented in this encounter Advance Directives Documents on File Type Date Recorded 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 No Care Teams Blending Kettle Tender Relationship Specialty Start Date End Date Leilani Tomas DO [address] [facility] [place] [address] PCP - General Family Medicine 05/01/22 documented as of this encounter
--- OUTSIDE RECORDS SUMMARY | 2023-09-30 13:23 | External Medical Summary | Summary of Care ---
Author Name Unknown Organization [facility] Address [address] [place] [address] Phone [phone] Care Team Providers Care Rn Advice Name Role Phone Leilani Tomas DO Primary Care Provider [phone] Reason for Referral * Evaluate & Treat - Unlimited Visits (Within 30 days (routine)) - Authorized Specialty Diagnoses / Procedures Referred By Contac t Referred To Contact Dermatology Diagnoses Basal cell carcinoma (BCC), unspecified site Leilani Tomas DO [address] [place] [address] Referral ID Status Reason Start Date Expiration Date Visits Requested Visits Authorized [id number] Authorized Specialty Services Required [phone] Question Answer Referral Priority Within 30 days (routine) Where should this appointment be scheduled? Matt Are you referring the patient for Mohs Surgery and have a current positive skin cancer biopsy result? No What is the reason for the patient referral? Rash/Skin Check/Eval of Lesion or Mole * Evaluate & Treat - Unlimited Visits (Within 10 days (routine)) - Authorized Specialty Diagnoses / Procedures Referred By Contac t Referred To Contact HOME CARE / Home Care Diagnoses Dementia of the Alzheimer's type, with late onset, uncomplicated (HCC) Leilani Tomas DO [address] [place] [address] Referral ID Status Reason Start Date Expiration Date Visits Requested Visits Authorized [id number] Authorized Specialty Services Required [phone] Question Answer Referral Priority Within 10 days (routine) Where should this appointment be scheduled? Matt Comments Documentation of [id number] Encounter Addendum Patient Name: Александр Booker I certify that this patient is under my care and that I, or a nurse practitioner or physician's assistant vice president working with me, had a [id number]-[id number] encounter that meets the physician [id number] encounter requirements with this patient on: see note The encounter with the patient was in whole, or in part, for the following medical condition, which is the primary reason for home health care (List medical condition): Medication management/Weakness/Falls. I certify that, based on my findings, the following services are medically necessary home health services: Nursing/PT To provide the following care/treatments: (All hospitalists not following the patient after discharge should complete this section): see note Primary Care Physician to follow home care plan of care after discharge: see note My clinical findings support the need for the above services because: see note Further, I certify that my clinical findings support that this patient is homebound (i.e. 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 [facility] Does patient have multiple co-morbid conditions? Yes Does patient have [facility] insurance? Yes Comments Is referral coming from Care Coordination and Integration? No Reason for Visit * Reason Comments Routine Exam Encounter Details Date Type Department Care Team Description 06/27/2023 Office Visit [facility] [place], [place] [address] [place] [address] Leilani Tomas DO [address] [place] [address] Dementia of the Alzheimer's type, with late onset, uncomplicated (HCC)*; Other pancytopenia (HCC); BPH without obstruction/lower urinary tract symptoms; Cerebrovascular disease; Essential hypertension with goal blood pressure less than 140/90; History of PSVT (paroxysmal supraventricular tachycardia); 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); Internal hemorrhoid; MCI (mild cognitive impairment); OSTEOARTHRITIS S/P TOTAL KNEES, 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), LEFT (03/19); Other atherosclerosis of [place] arteries of extremities, bilateral legs (HCC); Progressive vascular leukoencephalopathy (HCC); Sigmoid diverticulosis; Supraventricular tachycardia; Basal cell carcinoma (BCC), unspecified site Allergies No known active allergiesdocumented as of this encounter (statuses as of 06/27/2023) Medications Medication Sig Dispensed Refills Start Date End Date Status CENTRUM PO TABS 1 daily 0 Active lisinopril (PRINIVIL) 20 MG TabletIndications:Hyp ertension goal BP (blood pressure) < 140/90 Take 1 Tab by mouth 2 times a day. 180 Tab 3 10/25/2016 Active Levothyroxine Sodium 50 MCG Oral Tablet (Levoxyl)Indications: Subclinical hypothyroidism TAKE 1 TABLET BY MOUTH ONCE DAILY at least 30 minutes prior to breakfast or other meds. 90 Tablet 3 06/12/2022 Active Tamsulosin HCl 0.4 MG Oral Capsule [...] by mouth daily at noon. 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 4/ 1 01/10/2011 05/21/2012 OVERWEIGHT 09/29/2010 10/17/2011 EPISODE [...] as of this encounter (statuses as of 06/27/2023) Immunizations Name Administration Dates Next Due COVID-19 [...] Date Smoking Tobacco: Never Smokeless Tobacco: Never Tobacco Cessation:Counseling Given: Not Answered Alcohol Use Standard Drinks/Week Comments Yes 0 [...] Sign Reading Time Taken Comments Blood Pressure 120/60 06/27/2023 6:52 AM EDT Pulse 60 06/27/2023 6:52 AM EDT Temperature 36.8 C (98.2 F) 06/27/2023 6:52 AM ED T Respiratory Rate 18 06/27/2023 6:52 AM EDT Oxygen Saturation - - Inhaled Oxygen Concentration - - Weight 57.3 kg (126 lb 6.4 oz) 06/27/2023 6:52 A M EDT Height 156.2 cm (5' 1.5") 06/27/2023 6:52 AM EDT Body Mass Index 23.5 06/27/2023 6:52 AM EDT documented in this encounter Progress Notes * Leilani Tomas, DO - 06/27/2023 7:07 AM EDT Subjective: Александр Booker is a 88 year old male. Chief Complaint Patient presents with Routine Exam HPI: Patient is an 88-year-old male who presents to the office for routine follow-up. He was last in the office in April. Wearing a Holter monitor for Cardiology. He was las in the office in May 29. He is had episodes of syncopal events. Been admitted to the hospital twice over the summer. There was a discussion of hospice, but patient has declined at this time. The cardiac catherization is still on hold. He has been following cardiology closely. He has a history of an abnormal stress test. 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 It appears that his medications have been reconciled. I suspect his syncopal events were secondary to medication errors. Patient had recent fasting blood work. Anemia has improved. He had a hematology evaluation in 2020 for pancytopenia. He was referred back to his PCP who has been monitoring. would like to continue to monitor for now, and I think this is reasonable. He has been following with Neurology closely for vascular dementia. He continues on Aricept and Namenda. He no longer drives. He last saw Urology in December. He continues on finasteride and Flomax. He underwent Mohs surgery in October for basal cell carcinoma. He is due for follow-up with Dermatology. Blood pressure is stable. Weight has increased up. Patient brought in the list from our last office visit, and unsure if medication reconciliation wascompleted by home nursing? . reports that his memory is declining. No falls recently. He reports that he "is great." PMH: Patient Active Problem List Diagnosis Code II [...] uncomplicated (HCC) G30.1, F02.80 Other atherosclerosis of [place] arteries of extremities, bilateral legs (HCC) I70.293 Supraventricular tachycardia I47.10 Other pancytopenia (HCC) D61.818 Current Outpatient Medications Medication Sig Dispense Refill CENTRUM PO TABS 1 daily lisinopril (PRINIVIL) 20 MG Tablet Take 1 Tab by mouth 2 times a day. 180 Tab 3 Levothyroxine Sodium 50 MCG Oral Tablet (Levoxyl) TAKE 1 TABLET BY MOUTH ONCE DAILY at least 30 minutes prior to breakfast or other meds. 90 Tablet 3 Tamsulosin HCl 0.4 MG Oral Capsule [...] 1 Capsule by mouth daily at noon. No current facility-administered medications for this visit. 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) 09/29/2010 MCI (mild cognitive impairment) 07/23/2017 Obesity, BMI 30-34 (see actual BMI) 10/17/2011 OSTEOARTHRITIS S/P TOTAL KNEES, 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), LEFT (03/19) 09/29/2010 Overweight (BMI 25.0-29.9) 09/25/2012 Sebaceous cyst 04/02/2017 Neck Subclinical hypothyroidism 04/03/2016 Past Surgical History: Procedure Laterality Date ARTHROPLASTY KNEE TOTAL Bilateral 2008 Both done - one in November and other in January COLONOSCOPY 2006 several in the past COLONOSCOPY, DIAGNOSTIC (RECTUM) 2019 surgery to cauterize rectal bleeding REMOVAL OF APPENDIX 1952 REMOVE SMALL BLADDER STONE, SIMPLE N/A 01/12/2020 LITHOLAPAXY SIMPLE performed by Alexx Mejía Jr., MD at OR [facility] Review of patient's allergies indicates: No Known Allergies No family history on file. No family status information on file. Social History Socioeconomic History Marital status: Spouse name: Not on file Number of children: Not on file Years of education: Not on file Highest education level: Not on file Occupational History Not on file Tobacco Use Smoking status: Never Smokeless tobacco: Never Vaping Use Vaping Use: Never used Substance and Sexual Activity Alcohol use: Yes Comment: rarely Drug use: No Sexual activity: Not on file Other Topics Concern Not on file Social History Narrative Not on file Social Determinants of Health Financial Resource Strain: Not on file Food Insecurity: Not on file Transportation Needs: Not on file Physical Activity: Not on file Stress: Not on file Social Connections: Not on file Intimate Partner Violence: Not on file Housing Stability: Not on file Review of Systems Constitutional: Negative. HENT: Negative. Eyes: Negative. Respiratory: Negative. Cardiovascular: Negative. Gastrointestinal: Negative. Endocrine: Negative. Genitourinary: Negative. Musculoskeletal: Negative. Skin: Negative. Allergic/Immunologic: Negative. Neurological: Positive for speech difficulty. Hematological: Negative. Psychiatric/Behavioral: Negative. Negative for behavioral problems. Objective: BP 120/60 | Pulse 60 | Temp 36.8 C (98.2 F) | Resp 18 | Ht 1.562 m (5' 1.5") | Wt 57.3 kg (126 lb 6.4 oz) | BMI 23.50 kg/m | BSA 1.58 m Physical Exam Vitals and nursing note reviewed. Constitutional: Appearance: He is well-developed. HENT: Right Ear: External ear normal. Left Ear: External ear normal. Nose: Nose normal. Eyes: Conjunctiva/sclera: Conjunctivae normal. Pupils: Pupils are equal, round, and reactive to light. Cardiovascular: Rate and Rhythm: Normal rate and regular rhythm. Heart sounds: Murmur heard. Pulmonary: Effort: Pulmonary effort is normal. Breath sounds: Normal breath sounds. Abdominal: General: Bowel sounds are normal. Palpations: Abdomen is soft. Musculoskeletal: General: Normal range of motion. Cervical back: Neck supple. Skin: General: Skin is warm and dry. Neurological: Mental Status: He is alert. Mental status is at baseline. Motor: Weakness present. Coordination: Coordination abnormal. Gait: Gait abnormal. Comments: Speech difficulty. Psychiatric: Behavior: Behavior normal. Thought Content: Thought content normal. Judgment: Judgment normal. ASSESSMENT: Dementia of the Alzheimer's type, with late onset, uncomplicated (HCC) (Primary) - CBC WITH WBC DIFFERENTIAL AND ANEMIA REFLEX WORKUP; Future; Expected date: 06/27/2023 - FERRITIN; Future; Expected date: 06/27/2023 - IRON SCREEN, INCLUDING TIBC; Future; Expected date: 06/27/2023 - [facility] REFERRAL OP - HOME HEALTH REFERRAL OP - COMPREHENSIVE METABOLIC PANEL; Future; Expected date: 06/27/2023 Other pancytopenia (HCC) - CBC WITH WBC DIFFERENTIAL AND ANEMIA REFLEX WORKUP; Future; Expected date: 06/27/2023 - FERRITIN; Future; Expected date: 06/27/2023 - IRON SCREEN, INCLUDING TIBC; Future; Expected date: 06/27/2023 - COMPREHENSIVE METABOLIC PANEL; Future; Expected date: 06/27/2023 BPH without obstruction/lower urinary tract symptoms - CBC WITH WBC DIFFERENTIAL AND ANEMIA REFLEX WORKUP; Future; Expected date: 06/27/2023 - FERRITIN; Future; Expected date: 06/27/2023 - IRON SCREEN, INCLUDING TIBC; Future; Expected date: 06/27/2023 - [facility] REFERRAL OP - COMPREHENSIVE METABOLIC PANEL; Future; Expected date: 06/27/2023 Cerebrovascular disease - CBC WITH WBC DIFFERENTIAL AND ANEMIA REFLEX WORKUP; Future; Expected date: 06/27/2023 - FERRITIN; Future; Expected date: 06/27/2023 - IRON SCREEN, INCLUDING TIBC; Future; Expected date: 06/27/2023 - COMPREHENSIVE METABOLIC PANEL; Future; Expected date: 06/27/2023 Essential hypertension with goal blood pressure less than 140/90 - CBC WITH WBC DIFFERENTIAL AND ANEMIA REFLEX WORKUP; Future; Expected date: 06/27/2023 - FERRITIN; Future; Expected date: 06/27/2023 - IRON SCREEN, INCLUDING TIBC; Future; Expected date: 06/27/2023 - COMPREHENSIVE METABOLIC PANEL; Future; Expected date: 06/27/2023 History of PSVT (paroxysmal supraventricular tachycardia) - CBC WITH WBC DIFFERENTIAL AND ANEMIA REFLEX WORKUP; Future; Expected date: 06/27/2023 - FERRITIN; Future; Expected date: 06/27/2023 - IRON SCREEN, INCLUDING TIBC; Future; Expected date: 06/27/2023 - COMPREHENSIVE METABOLIC PANEL; Future; Expected date: 06/27/2023 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) - CBC WITH WBC DIFFERENTIAL AND ANEMIA REFLEX WORKUP; Future; Expected date: 06/27/2023 - FERRITIN; Future; Expected date: 06/27/2023 - IRON SCREEN, INCLUDING TIBC; Future; Expected date: 06/27/2023 - COMPREHENSIVE METABOLIC PANEL; Future; Expected date: 06/27/2023 Internal hemorrhoid - CBC WITH WBC DIFFERENTIAL AND ANEMIA REFLEX WORKUP; Future; Expected date: 06/27/2023 - FERRITIN; Future; Expected date: 06/27/2023 - IRON SCREEN, INCLUDING TIBC; Future; Expected date: 06/27/2023 - COMPREHENSIVE METABOLIC PANEL; Future; Expected date: 06/27/2023 MCI (mild cognitive impairment) - CBC WITH WBC DIFFERENTIAL AND ANEMIA REFLEX WORKUP; Future; Expected date: 06/27/2023 - FERRITIN; Future; Expected date: 06/27/2023 - IRON SCREEN, INCLUDING TIBC; Future; Expected date: 06/27/2023 - COMPREHENSIVE METABOLIC PANEL; Future; Expected date: 06/27/2023 OSTEOARTHRITIS S/P TOTAL KNEES, 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), LEFT (03/19) - CBC WITH WBC DIFFERENTIAL AND ANEMIA REFLEX WORKUP; Future; Expected date: 06/27/2023 - FERRITIN; Future; Expected date: 06/27/2023 - IRON SCREEN, INCLUDING TIBC; Future; Expected date: 06/27/2023 - COMPREHENSIVE METABOLIC PANEL; Future; Expected date: 06/27/2023 Other atherosclerosis of [place] arteries of extremities, bilateral legs (HCC) - CBC WITH WBC DIFFERENTIAL AND ANEMIA REFLEX WORKUP; Future; Expected date: 06/27/2023 - FERRITIN; Future; Expected date: 06/27/2023 - IRON SCREEN, INCLUDING TIBC; Future; Expected date: 06/27/2023 - COMPREHENSIVE METABOLIC PANEL; Future; Expected date: 06/27/2023 Progressive vascular leukoencephalopathy (HCC) - CBC WITH WBC DIFFERENTIAL AND ANEMIA REFLEX WORKUP; Future; Expected date: 06/27/2023 - FERRITIN; Future; Expected date: 06/27/2023 - IRON SCREEN, INCLUDING TIBC; Future; Expected date: 06/27/2023 - COMPREHENSIVE METABOLIC PANEL; Future; Expected date: 06/27/2023 Sigmoid diverticulosis - CBC WITH WBC DIFFERENTIAL AND ANEMIA REFLEX WORKUP; Future; Expected date: 06/27/2023 - FERRITIN; Future; Expected date: 06/27/2023 - IRON SCREEN, INCLUDING TIBC; Future; Expected date: 06/27/2023 - COMPREHENSIVE METABOLIC PANEL; Future; Expected date: 06/27/2023 Supraventricular tachycardia - CBC WITH WBC DIFFERENTIAL AND ANEMIA REFLEX WORKUP; Future; Expected date: 06/27/2023 - FERRITIN; Future; Expected date: 06/27/2023 - IRON SCREEN, INCLUDING TIBC; Future; Expected date: 06/27/2023 - COMPREHENSIVE METABOLIC PANEL; Future; Expected date: 06/27/2023 Basal cell carcinoma (BCC), unspecified site - DERMATOLOGY REFERRAL OP - COMPREHENSIVE METABOLIC PANEL; Future; Expected date: 06/27/2023 Follow-up: Return in about 3 months (around 09/27/2023), or if symptoms worsen or fail to improve. |Check-out note: Schedule blood work in 2-4 weeks. Plan CBC with WBC Differential and Anemia Reflex Workup Ferritin Iron Screen, Including TIBC Comprehensive Metabolic Panel [facility] Referral Op Home Health Referral OP DERMATOLOGY REFERRAL OP Stable 88 year old male, but declining. Will get him set up with [facility]. They are looking to move into [facility]. Will send [facility] for medication adjustment, and home PT. Repeat CBC in 2-4 weeks. Feel that is reasonable to continue to monitor at this time. Follow up with Dermatology. Follow up with Cardiology as scheduled. Return to the office in 3 months or sooner as needed. Follow-up: Return in about 3 months (around 09/27/2023), or if symptoms worsen or fail to improve. |Check-out note: Schedule blood work in 2-4 weeks. Leilani Tomas DO documented in this encounter Plan of Treatment Scheduled Orders Name Type Priority Associated Diagnoses Orde r Schedule CBC WITH WBC DIFFERENTIAL AND ANEMIA REFLEX WORKUP Lab Routine Other pancytopenia (HCC) BPH without obstruction/lower urinary tract symptoms Cerebrovascular disease Dementia of the Alzheimer's type, with late onset, uncomplicated (HCC) Essential hypertension with goal blood pressure less than 140/90 History of PSVT (paroxysmal supraventricular tachycardia) Dyslipidemia, goal LDL below 100 Internal hemorrhoid MCI (mild cognitive impairment) Generalized osteoarthritis Other atherosclerosis of [place] arteries of extremities, 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) Sigmoid diverticulosis Supraventricular tachycardia Expected: 06/27/2023 (Approximate), Expires: 06/27/2024 FERRITIN Lab Routine Other pancytopenia (HCC) BPH without obstruction/lower urinary tract symptoms Cerebrovascular disease Dementia of the Alzheimer's type, with late onset, uncomplicated (HCC) Essential hypertension with goal blood pressure less than 140/90 History of PSVT (paroxysmal supraventricular tachycardia) 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) Internal hemorrhoid MCI (mild cognitive impairment) OSTEOARTHRITIS S/P TOTAL KNEES, 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), LEFT (03/19) Other atherosclerosis of [place] arteries of extremities, 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) Sigmoid diverticulosis Supraventricular tachycardia Expected: 06/27/2023 (Approximate), Expires: 06/26/2024 IRON SCREEN, INCLUDING TIBC Lab Routine Other pancytopenia (HCC) BPH without obstruction/lower urinary tract symptoms Cerebrovascular disease Dementia of the Alzheimer's type, with late onset, uncomplicated (HCC) Essential hypertension with goal blood pressure less than 140/90 History of PSVT (paroxysmal supraventricular tachycardia) 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) Internal hemorrhoid MCI (mild cognitive impairment) OSTEOARTHRITIS S/P TOTAL KNEES, 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), LEFT (03/19) Other atherosclerosis of [place] arteries of extremities, 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) Sigmoid diverticulosis Supraventricular tachycardia Expected: 06/27/2023 (Approximate), Expires: 06/26/2024 COMPREHENSIVE METABOLIC PANEL Lab Routine Other pancytopenia (HCC) BPH without obstruction/lower urinary tract symptoms Cerebrovascular disease Dementia of the Alzheimer's type, with late onset, uncomplicated (HCC) Essential hypertension with goal blood pressure less than 140/90 History of PSVT (paroxysmal supraventricular tachycardia) 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) Internal hemorrhoid MCI (mild cognitive impairment) OSTEOARTHRITIS S/P TOTAL KNEES, 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), LEFT (03/19) Other atherosclerosis of [place] arteries of extremities, 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) Sigmoid diverticulosis Supraventricular tachycardia Basal cell carcinoma (BCC), unspecified site Expected: 06/27/2023 (Approximate), Expires: 06/26/2024 Scheduled Referrals Name Type Priority Associated Diagnoses Orde r Schedule [facility] RE[facility] Referral Within 10 days (routine) 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, with late onset, uncomplicated (HCC) Ordered: 06/27/2023 HOME HEALTH REFERRAL OP Referral Within 10 days (routine) Dementia of the Alzheimer's type, with late onset, uncomplicated (HCC) Ordered: 06/27/2023 DERMATOLOGY REFERRAL OP Referral Within 30 days (routine) Basal cell carcinoma (BCC), unspecified site Ordered: 06/27/2023 Health Maintenance Due Date Last Done Comments [...] as of this encounter Visit Diagnoses Diagnosis Dementia of the Alzheimer's type, with late onset, uncomplicated (HCC)- Primary Alzheimer's disease Other pancytopenia (HCC) Other pancytopenia BPH without obstruction/lower urinary tract symptoms Hypertrophy of prostate without urinary obstruction and other lower urinary tract symptoms (LUTS) Cerebrovascular disease Cerebrovascular disease, unspecified Essential hypertension with goal blood pressure less than 140/90 History of PSVT (paroxysmal supraventricular tachycardia) Personal history of other diseases of circulatory system 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) Other and unspecified hyperlipidemia Internal hemorrhoid Internal hemorrhoids without mention of complication MCI (mild cognitive impairment) Mild cognitive impairment, so stated OSTEOARTHRITIS S/P TOTAL KNEES, 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), LEFT (03/19) Generalized osteoarthrosis, unspecified site Other atherosclerosis of [place] arteries of extremities, 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) Progressive multifocal leukoencephalopathy Sigmoid diverticulosis Diverticulosis of colon (without mention of hemorrhage) Supraventricular tachycardia Other specified cardiac dysrhythmias Basal cell carcinoma (BCC), unspecified site documented in this encounter Advance Directives Documents on File Type Date Recorded 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 Question Answer Comments Discussion of Advance Directives occurred with: Not Discussed Does the patient have a Living Will? No Does the patient have Health Care Power of Staff Consultant? No Care Teams Rn Advice Relationship Specialty Start Date End Date Leilani Tomas DO [address] [facility] [place] [address] PCP - General Family Medicine 05/01/22 documented as of this encounter
--- OUTSIDE RECORDS SUMMARY | 2023-09-30 13:23 | External Medical Summary | Summary of Care ---
Author Name Unknown Organization [facility] Address [address] [facility] [address] Phone [phone] Care Team Providers Care Concrete Carpenter Name Role Phone Leilani Tomas DO Primary Care Provider +1 -[phone] Reason for Visit * Reason Onset Date Comments Appointment Canceled 07/10/2023 Encounter Details Date Type Department Care Team (Late st Contact Info) Description 07/10/2023 Telephone Neurology [facility] [address] [place] [address] Romina Peña PA-C [address] [place] [address] Appointment Canceled Allergies No known active allergiesdocumented as of this encounter (statuses as of 07/10/2023) Medications Medication Sig Dispensed Refills Start Date [...] as of this encounter (statuses as of 07/10/2023) Active Problems Problem Noted Date Diagnosed Date [...] as of this encounter (statuses as of 07/10/2023) Resolved Problems Problem Noted Date Diagnosed Date [...] as of this encounter (statuses as of 07/10/2023) Immunizations Name Administration Dates Next Due COVID-19 [...] encounter Miscellaneous Notes * Telephone Encounter - TalaRae alfaro Elsie - 07/10/2023 9:57 AM EDT Pt said that they were not informed and were upset that they were not contacted about the cancellation Drove from [facility] Placed on waitlist for next appt documented in this encounter Plan of Treatment Upcoming Encounters Date Type Department Care Team (Late st Contact Info) Description 07/18/2023 8:00 AM EST Laboratory Laboratory [place] [address] [place] [id number] [facility] [address] [place] [address] 09/14/2023 1:20 PM EST Office Visit Neurology [facility] [address] [facility] [place] [address] Romina Peña PA-C [address] [facility] [place] [address] 10/10/2023 11:40 AM EST Office Visit Family Practice [facility], [place] [address] [place] [address] Moon Tavares DO [address] [place] [address] Health Maintenance Due Date Last Done Comments [...] Documents on File Type Date Recorded Patient Chemist Proteins Expl anation POLST 04/21/2023 [place] DERS [...] the patient have Health Care Power of Hull Outfit Supervisor? No Care Teams Concrete Carpenter Relationship Specialty Start Date End Date Leilani Tomas DO [address] [facility] [place] [address] PCP - General Family Medicine 05/01/22 documented as of this encounter
--- OUTSIDE RECORDS SUMMARY | 2023-09-30 13:23 | External Medical Summary | Summary of Care ---
Author Name Unknown Organization [facility] Address [address] [place] [address] Phone [phone] Care Team Providers Care Shipper Receiver Name Role Phone Tomas, Leilani Prasannajanak Primary Care Provider +1 [phone] Reason for Visit * Reason Onset Date Comments [facility]: Screening 06/27/2023 Encounter Details Date Type Department Care Team Description 06/27/2023 Telephone [facility] [address] [place] [address] [facility] Nurse [facility] [address] [place] [address] [facility]: Screening Allergies No known active allergiesdocumented as of [...] ate onset, uncomplicated 11/21/2021 Other atherosclerosis of [place] arteries of extremities, bilateral legs 11/21/2021 BPH [...] encounter Miscellaneous Notes * Telephone Encounter - Alexa Martin LPN - 06/27/2023 10:14 AM EDT Александр Booker was referred as a potential candidate for enrollment for [facility]. A review of this chart was completed and: Александр does not meet criteria for enrollment into [facility]. Referral Source: PCP/Specialty Criteria for Ineligibility: Not Located in Service Area Referring care team was notified via : [employer] communication documented in this encounter Plan of Treatment Upcoming Encounters Date Type Specialty Care Team Description 07/02/2023 Office Visit Dermatology Betsy Clement PA-C [address] [place] [address] 07/18/2023 Laboratory Laboratory [facility] [address] 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 No Care Teams Shipper Receiver Relationship Specialty Start Date End Date Leilani Tomas DO [address] [facility] [place] [address] PCP - General Family Medicine 05/01/22 documented as of this encounter
--- OUTSIDE RECORDS SUMMARY | 2023-09-30 13:23 | External Medical Summary ---
Author Name Unknown Address Unknown Organization K01:LAB[facility]ATORY [facility] - [address] [place] [address] Laboratory Report Ordering Provider Test Date Status FLAQUITO FLAHERTY 07/18/2023 07:43:58 Final Observation Date Value Abnormality Reference (Units ) Status WBC, Total 07/18/2023 07:43:58 4.99 4.00-10.8 0 (K/uL) Final RBC 07/18/2023 07:43:58 4.48 4.50-5.25 (M/uL) Final Hemoglobin 07/18/2023 07:43:58 13.2 Below low normal 14 .0-16.8 (g/dL) Final Anemia reflex testing trigge rs on a HGB < 12.0 for Females and HGB < 13.0 for Males in accordance with the WHO Anemia Guidelines
Anemia reflex testing triggers on a HGB < 12.0 for Females and HGB < 13.0 for Males in accordance with the WHO Anemia Guidelines HCT 07/18/2023 07:43:58 43.0 40.0-48.4 (%) Final MCV 07/18/2023 07:43:58 96.0 82.0-99.5 (fL) Final MCH 07/18/2023 07:43:58 29.5 27.0-34.0 (pg) Final MCHC 07/18/2023 07:43:58 30.7 32.0-36.0 (g/dL) Final RDW 07/18/2023 07:43:58 12.6 11.5-15.5 (%) Final Platelets 07/18/2023 07:43:58 125 Below low normal 140 -400 (K/uL) Final MPV 07/18/2023 07:43:58 10.8 6.6-11.1 ( fL) Final Nucleated erythrocytes/100 leukocytes [Ratio] in Blood by Automated count 07/18/2023 07:43:58 0 <=0 (/100 WBCs) Final Performing Location LAB[facility] - [address] [facility] [address]
--- OUTSIDE RECORDS SUMMARY | 2023-09-30 13:23 | External Medical Summary | Summary of Care ---
Author Name Unknown Organization [facility] Address [address] [place] [address] Phone [phone] Care Team Providers Care Canvas Worker Apprentice Name Role Phone Leilani Tomas DO Primary Care Provider [phone] [phone] Reason for Visit * Reason Comments Follow Up Routine skin exam. W aist up skin exam. Hx: BCC * Evaluate & Treat - Unlimited Visits (Within 30 days (routine)) - Authorized Specialty Diagnoses / Procedures Referred By Daisy flores Referred To Contact Dermatology Diagnoses Basal cell carcinoma (BCC), unspecified site Leilani Tomas DO [address] [place] [address] Referral ID Status Reason Start Date Expiration Date Visits Requested Visits Authorized [id number] Authorized Specialty Services Required 3 [phone] Encounter Details Date Type Department Care Team (Late st Contact Info) Description 07/02/2023 1:50 PM EDT Office Visit Dermatology [facility] [address] [place] [address] Betsy Clement PA-C [address] [place] [address] Seborrheic keratosis*; Diffuse photodamage of skin; History [...] Otoole PA-C . Jonathan Wright MD., Dermatology [facility] Outpatient Specialty Departments [address] [place] [address] [place] [address] * Betsy Clement PA-C - 07/02/2023 1:51 [...] concerning lesions H/o BCC L helix s/p [facility] REVIEW OF SYSTEMS: See HPI- all [...] Description 07/18/2023 8:00 AM EST [facility] [address] [place] [id number] [place] [address] [place] [address] 10/10/2023 11:40 AM EST Office Visit [facility] Practice [address] [place] [address] Moon Tavares DO [address] [place] [address] Health Maintenance Due Date Last Done Comments [...] Documents on File Type Date Recorded Patient Sap Business Analyst Expl anation POLST 04/21/2023 [place] OR DERS FOR LIFE-SUSTAINING TREATMENT Latest Code [...] the patient have Health Care Power of Creative Guru? No Care Teams Canvas Worker Apprentice Relationship Specialty Start Date End Date Leilani Tomas DO [address] [facility] [place] [address] PCP - General Family Medicine 05/01/22 documented as of this encounter
--- OUTSIDE RECORDS SUMMARY | 2023-09-30 13:23 | External Medical Summary | Summary of Care ---
Author Name Unknown Organization [facility] Address [address] [place] [address] Phone [phone] Care Team Providers Care Gate Clerk Name Role Phone Leilani Tomas DO Primary Care Provider [phone] [phone] Reason for Visit * Reason Comments Outpatient Testing Encounter Details Date Type Department Care Team (Latest Contact Info) Description 07/18/2023 8:00 AM EST Laboratory Laboratory [place] [place] [address] [place] [address] [facility] [address] [facility] [place] [address] Other pancytopenia (HCC); BPH without obstruction/lower urinary tract symptoms; Cerebrovascular disease; Dementia of the Alzheimer's type, with late onset, uncomplicated (HCC); Essential hypertension with goal blood pressure less than 140/90; History of PSVT (paroxysmal supraventricular tachycardia); Dyslipidemia, goal LDL below 100; Internal hemorrhoid; MCI (mild cognitive impairment); Generalized osteoarthritis; Other atherosclerosis of [place] arteries of extremities, bilateral legs (HCC); Progressive vascular leukoencephalopathy (HCC); Sigmoid diverticulosis; Supraventricular tachycardia; 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); OSTEOARTHRITIS S/P TOTAL KNEES, 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), LEFT (03/19); Basal cell carcinoma (BCC), unspecified site Allergies No known active allergiesdocumented as of this encounter (statuses as of 07/18/2023) Medications Medication Sig Dispensed Refills Start Date [...] as of this encounter (statuses as of 07/18/2023) Active Problems Problem Noted Date Diagnosed Date [...] as of this encounter (statuses as of 07/18/2023) Resolved Problems Problem Noted Date Diagnosed Date [...] as of this encounter (statuses as of 07/18/2023) Immunizations Name Administration Dates Next Due COVID-19 [...] on file documented as of this encounter Plan of Treatment Upcoming Encounters Date Type Department Care Team (Late st Contact Info) Description 09/14/2023 1:20 PM EST Office Visit Neurology [employer] [address] [facility] [place] [address] Romina Peña PA-C [address] [facility] [place] [address] 10/10/2023 11:40 AM EST Office Visit [facility] [address] [place] [address] Moon Tavares DO [address] [place] [address] Pending Results Name Type Priority Associated Diagnoses Date /Time CBC WITH WBC DIFFERENTIAL AND ANEMIA REFLEX WORKUP Lab Routine Other pancytopenia (HCC) BPH without obstruction/lower urinary tract symptoms Cerebrovascular disease Dementia of the Alzheimer's type, with late onset, uncomplicated (HCC) Essential hypertension with goal blood pressure less than 140/90 History of PSVT (paroxysmal supraventricular tachycardia) Dyslipidemia, goal LDL below 100 Internal hemorrhoid MCI (mild cognitive impairment) 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, 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) Sigmoid diverticulosis Supraventricular tachycardia 07/18/2023 7:43 AM EST FERRITIN Lab Routine Other pancytopenia (HCC) BPH without obstruction/lower urinary tract symptoms Cerebrovascular disease Dementia of the Alzheimer's type, with late onset, uncomplicated (HCC) Essential hypertension with goal blood pressure less than 140/90 History of PSVT (paroxysmal supraventricular tachycardia) 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) Internal hemorrhoid MCI (mild cognitive impairment) OSTEOARTHRITIS S/P TOTAL KNEES, 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), LEFT (03/19) Other atherosclerosis of [place] arteries of extremities, 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) Sigmoid diverticulosis Supraventricular tachycardia 07/18/2023 7:43 AM EST IRON SCREEN, INCLUDING TIBC Lab Routine Other [...] 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), LEFT (03/19) Other atherosclerosis of [place] arteries of extremities, 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) Sigmoid diverticulosis Supraventricular tachycardia 07/18/2023 7:43 AM EST COMPREHENSIVE METABOLIC PANEL Lab Routine Other pancytopenia [...] 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), LEFT (03/19) Other atherosclerosis of [place] arteries of extremities, 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) Sigmoid diverticulosis Supraventricular tachycardia Basal cell carcinoma (BCC), unspecified site 07/18/2023 7:43 AM EST ANEMIA CBC Lab Routine Other pancytopenia (HCC) BPH without obstruction/lower urinary tract symptoms Cerebrovascular disease Dementia of the Alzheimer's type, with late onset, uncomplicated (HCC) Essential hypertension with goal blood pressure less than 140/90 History of PSVT (paroxysmal supraventricular tachycardia) Dyslipidemia, goal LDL below 100 Internal hemorrhoid MCI (mild cognitive impairment) 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, 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) Sigmoid diverticulosis Supraventricular tachycardia 07/18/2023 7:43 AM EST DIFFERENTIAL, AUTOMATED Lab Routine Other pancytopenia (HCC) BPH without obstruction/lower urinary tract symptoms Cerebrovascular disease Dementia of the Alzheimer's type, with late onset, uncomplicated (HCC) Essential hypertension with goal blood pressure less than 140/90 History of PSVT (paroxysmal supraventricular tachycardia) Dyslipidemia, goal LDL below 100 Internal hemorrhoid MCI (mild cognitive impairment) 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, 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) Sigmoid diverticulosis Supraventricular tachycardia 07/18/2023 7:43 AM EST ANEMIA REFLEX CHEMISTRY HOLD Lab Routine Other pancytopenia (HCC) BPH without obstruction/lower urinary tract symptoms Cerebrovascular disease Dementia of the Alzheimer's type, with late onset, uncomplicated (HCC) Essential hypertension with goal blood pressure less than 140/90 History of PSVT (paroxysmal supraventricular tachycardia) Dyslipidemia, goal LDL below 100 Internal hemorrhoid MCI (mild cognitive impairment) 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, 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) Sigmoid diverticulosis Supraventricular tachycardia 07/18/2023 7:43 AM EST Health Maintenance Due Date Last Done Comments [...] as of this encounter Visit Diagnoses Diagnosis Other pancytopenia (HCC) Other pancytopenia BPH without obstruction/lower urinary tract symptoms Hypertrophy of prostate without urinary obstruction and other lower urinary tract symptoms (LUTS) Cerebrovascular disease Cerebrovascular disease, unspecified Dementia of the Alzheimer's type, with late onset, uncomplicated (HCC) Alzheimer's disease Essential hypertension with goal blood pressure less [...] Generalized osteoarthrosis, unspecified site Other atherosclerosis of [place] arteries of extremities, 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 No Care Teams Gate Clerk Relationship Specialty Start Date End Date Leilani Tomas DO [address] [facility] [place] [address] PCP - General Family Medicine 05/01/22 documented as of this encounter
--- OUTSIDE RECORDS SUMMARY | 2023-09-30 13:23 | External Medical Summary | Summary of Care ---
Author Name Unknown Organization [facility] Address [address] [place] [address] Phone [phone] Care Team Providers Care Spring Floor Service Worker Name Role Phone Leilani Tomas DO Primary Care Provider [phone] [phone] Reason for Visit * Reason Onset Date Comments Referral 06/27/2023 Home Health Encounter Details Date Type Department Care Team Description 06/27/2023 Telephone Family Practice [place] [address] [place] [address] Leilani Tomas DO [address] [facility] [place] [address] Referral (Home Health) Allergies No known active allergiesdocumented as of [...] ate onset, uncomplicated 11/21/2021 Other atherosclerosis of [place] arteries of extremities, bilateral legs 11/21/2021 BPH [...] encounter Miscellaneous Notes * Telephone Encounter - DARRYL Reza - 06/28/2023 12:16 PM EDT Noted * Telephone Encounter - DARRYL Mei - 06/27/2023 8:15 AM EDT Pts sts she will check with her insurance on this and call back. 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 No Care Teams Spring Floor Service Worker Relationship Specialty Start Date End Date Leilani Tomas DO [address] [facility] [place] [address] PCP - General Family Medicine 05/01/22 documented as of this encounter
--- OUTSIDE RECORDS SUMMARY | 2023-09-30 13:23 | External Medical Summary | Summary of Care ---
Author Name Unknown Organization [facility] Address [address] [place] [address] Phone [phone] Care Team Providers Care Parking Technician Name Role Phone Leilani Tomas DO Primary Care Provider +1 [phone] Encounter Details Date Type Department Care Team (Late st Contact Info) Description 07/23/2023 [facility] [address] [facility] [place] [id number] Leilani Tomas DO [address] [place] [address] Allergies No known active allergiesdocumented as of this encounter (statuses as of 07/23/2023) Medications Medication Sig Dispensed Refills Start Date [...] as of this encounter (statuses as of 07/23/2023) Active Problems Problem Noted Date Diagnosed Date [...] as of this encounter (statuses as of 07/23/2023) Resolved Problems Problem Noted Date Diagnosed Date [...] as of this encounter (statuses as of 07/23/2023) Immunizations Name Administration Dates Next Due COVID-19 mRNA, LNP-s, No Pre serve, 2-Dose Series ([email or web address]) 07/14/2021,10/24/2020,10/03/2020 Diptheria/Tetanus (Adult) 06/22/2006 Pneumococcal Conjugate Vacc, [...] encounter Miscellaneous Notes * Telephone Encounter - Leilani Tomas DO - 07/23/2023 9:59 PM EST Stable blood work. Hemoglobin 13.2, and stable. Would continue to monitor. had wished to monitor at this time. Glucose low and make sure patient eating. documented in this encounter Plan of Treatment Upcoming Encounters Date Type Department Care Team (Late st Contact Info) Description 09/14/2023 1:20 PM EST Office Visit Neurology [facility] [place] [address] [place] [address] Romina Peña PA-C [address] [facility] [place] [address] 10/10/2023 11:40 AM EST Office [facility] [address] [place] [address] Moon Tavares DO [address] [place] [address] Health Maintenance Due Date Last Done Comments [...] Documents on File Type Date Recorded Patient Telecommunications Manager Expl anation POLST 04/21/2023 [place] DERS [...] the patient have Health Care Power of Movie Producer? No Care Teams Parking Technician Relationship Specialty Start Date End Date Leilani Tomas DO [address] [facility] [place] [address] PCP - General Family Medicine 05/01/22 documented as of this encounter
--- OUTSIDE RECORDS SUMMARY | 2023-09-30 13:24 | External Medical Summary ---
Author Name Unknown Address Unknown Organization K01:[facility] [place] [address] [facility] [address] [facility] [address] Laboratory Report Ordering Provider Test Date Status FLAQUITO FLAHERTY 06/21/2023 10:44:45 Final Observation Date Value Abnormality Reference (Units ) Status WBC, Total 06/21/2023 10:44:45 5.82 4.00-10.80 (K/uL) Final RBC 06/21/2023 10:44:45 4.37 4.50-5.25 (M/uL) Final Hemoglobin 06/21/2023 10:44:45 13.0 Below low normal 14.0-16.8 (g/dL) Final HCT 06/21/2023 10:44:45 42.1 40.0-48.4 (%) Final MCV 06/21/2023 10:44:45 96.3 82.0-99.5 (fL) Final MCH 06/21/2023 10:44:45 29.7 27.0-34.0 (pg) Final MCHC 06/21/2023 10:44:45 30.9 32.0-36.0 (g/dL) Final RDW 06/21/2023 10:44:45 13.2 11.5-15.5 (%) Final Platelets 06/21/2023 10:44:45 124 Below low normal 140-400 (K/uL) Final MPV 06/21/2023 10:44:45 11.4 6.6-11.1 (fL) Final Nucleated erythrocytes/100 leukocytes [Ratio] in Blood by Automated count 06/21/2023 10:44:45 0 <=0 (/100 WBCs) Final Performing Location [facility] [place] [address] [place] [address]
--- OUTSIDE RECORDS SUMMARY | 2023-09-30 13:24 | External Medical Summary | Summary of Care ---
Author Name Unknown Organization [facility] Address [address] [place] [address] Phone [phone] Care Team Providers Care Tailor'S Aide Name Role Phone Leilani Tomas DO Primary Care Provider [phone] Reason for Visit * Reason Comments Routine Exam Will be following up with cardiology. Has been drinking ensure and eating 3 meals a day but hasn't been able to gain weight. 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 90 Tablet 3 06/12/2022 Active Memantine HCl 5 MG Oral Tablet (Namenda)Indications: Memory loss TAKE 1 TABLET BY MOUTH TWICE DAILY 180 Tablet 1 11/09/2022 Active Tamsulosin HCl 0.4 MG Oral Capsule [...] by mouth in the morning. 0 Active documented as of this encounter (statuses as of 05/09/2023) Active Problems Problem Noted Date Supraventricular tachycardia 03/07/2023 Dementia of the Alzheimer's type, with l ate onset, uncomplicated 11/21/2021 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, bilateral legs 11/21/2021 BPH [...] as of this encounter (statuses as of 05/09/2023) Resolved Problems Problem Noted Date Resolved Date [...] as of this encounter (statuses as of 05/09/2023) Immunizations Name Administration Dates Next Due COVID-19 mRNA, LNP-s, No Pre serve, 2-Dose Series (Pfizer) 07/14/2021,10/24/2020,10/03/2020 Diptheria/Tetanus (Adult) 06/22/2006 Pneumococcal Conjugate Vacc, 13 Valent (Prevnar) 11/19/2015 Pneumococcal Polysaccharide PPV23 (Pneumovax) 07/23/2017,03/18/2007 Season Influenza, Quad, PF, Adjuvanted, 65+ Yrs, IM (FLUAD) 05/19/2020 Seasonal Influenza, Quadriva lent Hd (Fluzone Hd) 07/03/2022,05/13/2021 Seasonal Influenza, Split, I IV3, With Preserve, [...] Sign Reading Time Taken Comments Blood Pressure 132/54 05/09/2023 8:30 AM EDT Pulse 56 05/09/2023 8:30 AM EDT Temperature 36.6 C (97.9 F) 05/09/2023 8:30 AM ED T Respiratory Rate 18 05/09/2023 8:30 AM EDT Oxygen Saturation 98% 05/09/2023 8:30 AM EDT Inhaled Oxygen Concentration - - Weight 54.3 kg (119 lb 12.8 oz) 05/09/2023 8:30 AM EDT Height 156.2 cm (5' 1.5") 05/09/2023 8:30 AM EDT Body Mass Index 22.27 05/09/2023 8:30 AM EDT documented in this encounter Progress Notes * eLilani Tomas, DO - 05/09/2023 8:38 AM EDT Subjective: Александр Booker is a 88 year old male. Chief Complaint Patient presents with Routine Exam Will be following up with cardiology. Has been drinking ensure and eating 3 meals a day but hasn't been able to gain weight. HPI: Patient is an 88-year-old male who presents to the office for routine follow-up He had been seen in the office frequently over the last couple of months. He recently had fall and had emily removed. Area was cleaned today and looks good. He had a hospice evaluation. He has a cardiology appointment pending for CAD. They were going to discuss a future cardiac catheterization. Blood pressure stable today. He continues to lose weight. His states that he is eating 3 mealsa day and not able to gain weight. He is using Ensure. His dementia has been worsening. He is following with Neurology and has an pending. He continues onAricept and Namenda. He no longer drives no longer uses the riding mower. Overall blood work stable and mild anemia, and looks like a normocytic anemia. He states that overall he is doing well. He denies any complaints today. He needs a shower chair. reports that he has not had any fall. 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 180 Tab 3 Levothyroxine Sodium 50 MCG Oral Tablet (Levoxyl) TAKE 1 TABLET BY MOUTH ONCE DAILY at least 30 minutes prior to breakfast or other meds. 90 Tablet 3 Memantine HCl 5 MG Oral Tablet (Namenda) TAKE 1 TABLET BY MOUTH TWICE DAILY 180 Tablet 1 Tamsulosin HCl 0.4 MG Oral Capsule (Flomax) [...] 0.5 Tablets by mouth in the morning. No current facility-administered medications for this visit. [...] by Alexx Mejía Jr., MD at OR [facility] Review of patient's allergies indicates: [...] Musculoskeletal: Negative. Skin: Negative. Allergic/Immunologic: Negative. Neurological: Negative. Hematological: Negative. Psychiatric/Behavioral: Negative. Objective: BP 132/54 | Pulse 56 | Temp 36.6 C (97.9 F) | Resp 18 | Ht 1.562 m (5' 1.5") | Wt 54.3 kg (119 lb 12.8 oz) | SpO2 98% | BMI 22.27 kg/m | BSA 1.53 m Physical Exam Vitals and nursing note reviewed. Constitutional: Appearance: He is well-developed. HENT: Right Ear: External ear normal. Left Ear: External ear normal. Nose: Nose normal. Eyes: Conjunctiva/sclera: Conjunctivae normal. Pupils: Pupils are equal, round, and reactive to light. Cardiovascular: Rate and Rhythm: Normal rate and regular rhythm. Heart sounds: Normal heart sounds. Pulmonary: Effort: Pulmonary effort is normal. Breath sounds: Normal breath sounds. Abdominal: General: Bowel sounds are normal. Palpations: Abdomen is soft. Musculoskeletal: General: Normal range of motion. Cervical back: Neck supple. Skin: General: Skin is warm and dry. Neurological: Mental Status: He is alert. He is disoriented. Motor: Weakness present. Coordination: Coordination abnormal. Gait: Gait abnormal. Psychiatric: Behavior: Behavior normal. Thought Content: Thought content normal. Judgment: Judgment normal. ASSESSMENT: Cerebrovascular disease (Primary) - DURABLE MEDICAL EQUIPMENT - CBC WITH WBC DIFFERENTIAL; Future; Expected date: 05/09/2023 - COMPREHENSIVE METABOLIC PANEL; Future; Expected date: 05/09/2023 - TSH WITH FREE T4 IF INDICATED; Future; Expected date: 05/09/2023 - LIPID PANEL WITH DIRECT LDL IF TG IS HIGH; Future; Expected date: 05/09/2023 - URINALYSIS, REFLEX TO MICROSCOPIC; Future; Expected date: 05/09/2023 Dementia of the Alzheimer's type, with late onset, uncomplicated (HCC) - DURABLE MEDICAL EQUIPMENT - CBC WITH WBC DIFFERENTIAL; Future; Expected date: 05/09/2023 - COMPREHENSIVE METABOLIC PANEL; Future; Expected date: 05/09/2023 - TSH WITH FREE T4 IF INDICATED; Future; Expected date: 05/09/2023 - LIPID PANEL WITH DIRECT LDL IF TG IS HIGH; Future; Expected date: 05/09/2023 - URINALYSIS, REFLEX TO MICROSCOPIC; Future; Expected date: 05/09/2023 BPH without obstruction/lower urinary tract symptoms - CBC WITH WBC DIFFERENTIAL; Future; Expected date: 05/09/2023 - COMPREHENSIVE METABOLIC PANEL; Future; Expected date: 05/09/2023 - TSH WITH FREE T4 IF INDICATED; Future; Expected date: 05/09/2023 - LIPID PANEL WITH DIRECT LDL IF TG IS HIGH; Future; Expected date: 05/09/2023 - URINALYSIS, REFLEX TO MICROSCOPIC; Future; Expected date: 05/09/2023 Essential hypertension with goal blood pressure less than 140/90 - CBC WITH WBC DIFFERENTIAL; Future; Expected date: 05/09/2023 - COMPREHENSIVE METABOLIC PANEL; Future; Expected date: 05/09/2023 - TSH WITH FREE T4 IF INDICATED; Future; Expected date: 05/09/2023 - LIPID PANEL WITH DIRECT LDL IF TG IS HIGH; Future; Expected date: 05/09/2023 - URINALYSIS, REFLEX TO MICROSCOPIC; Future; Expected date: 05/09/2023 History of PSVT (paroxysmal supraventricular tachycardia) - CBC WITH WBC DIFFERENTIAL; Future; Expected date: 05/09/2023 - COMPREHENSIVE METABOLIC PANEL; Future; Expected date: 05/09/2023 - TSH WITH FREE T4 IF INDICATED; Future; Expected date: 05/09/2023 - LIPID PANEL WITH DIRECT LDL IF TG IS HIGH; Future; Expected date: 05/09/2023 - URINALYSIS, REFLEX TO MICROSCOPIC; Future; Expected date: 05/09/2023 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) - CBC WITH WBC DIFFERENTIAL; Future; Expected date: 05/09/2023 - COMPREHENSIVE METABOLIC PANEL; Future; Expected date: 05/09/2023 - TSH WITH FREE T4 IF INDICATED; Future; Expected date: 05/09/2023 - LIPID PANEL WITH DIRECT LDL IF TG IS HIGH; Future; Expected date: 05/09/2023 - URINALYSIS, REFLEX TO MICROSCOPIC; Future; Expected date: 05/09/2023 MCI (mild cognitive impairment) - CBC WITH WBC DIFFERENTIAL; Future; Expected date: 05/09/2023 - COMPREHENSIVE METABOLIC PANEL; Future; Expected date: 05/09/2023 - TSH WITH FREE T4 IF INDICATED; Future; Expected date: 05/09/2023 - LIPID PANEL WITH DIRECT LDL IF TG IS HIGH; Future; Expected date: 05/09/2023 - URINALYSIS, REFLEX TO MICROSCOPIC; Future; Expected date: 05/09/2023 Internal hemorrhoid - CBC WITH WBC DIFFERENTIAL; Future; Expected date: 05/09/2023 - COMPREHENSIVE METABOLIC PANEL; Future; Expected date: 05/09/2023 - TSH WITH FREE T4 IF INDICATED; Future; Expected date: 05/09/2023 - LIPID PANEL WITH DIRECT LDL IF TG IS HIGH; Future; Expected date: 05/09/2023 - URINALYSIS, REFLEX TO MICROSCOPIC; Future; Expected date: 05/09/2023 OSTEOARTHRITIS S/P TOTAL KNEES, 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), LEFT (03/19) - CBC WITH WBC DIFFERENTIAL; Future; Expected date: 05/09/2023 - COMPREHENSIVE METABOLIC PANEL; Future; Expected date: 05/09/2023 - TSH WITH FREE T4 IF INDICATED; Future; Expected date: 05/09/2023 - LIPID PANEL WITH DIRECT LDL IF TG IS HIGH; Future; Expected date: 05/09/2023 - URINALYSIS, REFLEX TO MICROSCOPIC; Future; Expected date: 05/09/2023 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, bilateral legs (HCC) - CBC WITH WBC DIFFERENTIAL; Future; Expected date: 05/09/2023 - COMPREHENSIVE METABOLIC PANEL; Future; Expected date: 05/09/2023 - TSH WITH FREE T4 IF INDICATED; Future; Expected date: 05/09/2023 - LIPID PANEL WITH DIRECT LDL IF TG IS HIGH; Future; Expected date: 05/09/2023 - URINALYSIS, REFLEX TO MICROSCOPIC; Future; Expected date: 05/09/2023 Progressive vascular leukoencephalopathy (HCC) - CBC WITH WBC DIFFERENTIAL; Future; Expected date: 05/09/2023 - COMPREHENSIVE METABOLIC PANEL; Future; Expected date: 05/09/2023 - TSH WITH FREE T4 IF INDICATED; Future; Expected date: 05/09/2023 - LIPID PANEL WITH DIRECT LDL IF TG IS HIGH; Future; Expected date: 05/09/2023 - URINALYSIS, REFLEX TO MICROSCOPIC; Future; Expected date: 05/09/2023 Sigmoid diverticulosis - CBC WITH WBC DIFFERENTIAL; Future; Expected date: 05/09/2023 - COMPREHENSIVE METABOLIC PANEL; Future; Expected date: 05/09/2023 - TSH WITH FREE T4 IF INDICATED; Future; Expected date: 05/09/2023 - LIPID PANEL WITH DIRECT LDL IF TG IS HIGH; Future; Expected date: 05/09/2023 - URINALYSIS, REFLEX TO MICROSCOPIC; Future; Expected date: 05/09/2023 Supraventricular tachycardia (HCC) - CBC WITH WBC DIFFERENTIAL; Future; Expected date: 05/09/2023 - COMPREHENSIVE METABOLIC PANEL; Future; Expected date: 05/09/2023 - TSH WITH FREE T4 IF INDICATED; Future; Expected date: 05/09/2023 - LIPID PANEL WITH DIRECT LDL IF TG IS HIGH; Future; Expected date: 05/09/2023 - URINALYSIS, REFLEX TO MICROSCOPIC; Future; Expected date: 05/09/2023 Subclinical hypothyroidism - CBC WITH WBC DIFFERENTIAL; Future; Expected date: 05/09/2023 - COMPREHENSIVE METABOLIC PANEL; Future; Expected date: 05/09/2023 - TSH WITH FREE T4 IF INDICATED; Future; Expected date: 05/09/2023 - LIPID PANEL WITH DIRECT LDL IF TG IS HIGH; Future; Expected date: 05/09/2023 - URINALYSIS, REFLEX TO MICROSCOPIC; Future; Expected date: 05/09/2023 Follow Up: Return in about 3 months (around 08/09/2023), or if symptoms worsen or fail to improve, for Fasting blood work prior to next appointment. | For: Fasting blood work prior to next appointment Plan CBC with WBC Differential Comprehensive Metabolic Panel TSH with Free T4 if indicated Lipid Panel with Direct LDL if TG is High Urinalysis, Reflex to Microscopic Exam Durable Medical Equipment : Other (See Comments) (shower chair) Stable 88-year-old male, but declining. They have an appointment with cardiology May 29. Continue current medications for now. Blood pressure is controlled, but due to his age may be too strict. They will continue to monitor. Medication list was updated to the best of our ability throughmultiple hospitalizations and home readings. He will be getting a shower chair. Follow-up in the office as scheduled 3 months or sooner as needed. Follow Up: Return in about 3 months (around 08/09/2023), or if symptoms worsen or fail to improve, for Fasting blood work prior to next appointment. | For: Fasting blood work prior to next appointment Leilani Tomas DO documented in this encounter Nursing Notes * Maral Valderrama LPN - 05/09/2023 8:31 AM EDT Chief Complaint Patient presents with Routine Exam Will be following up with cardiology. Has been drinking ensure and eating 3 meals a day but hasn't been able to gain weight. 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 obstruction/lower urinary tract symptoms Essential hypertension with goal blood pressure less than 140/90 History of PSVT (paroxysmal supraventricular tachycardia) 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) MCI (mild cognitive impairment) Internal hemorrhoid OSTEOARTHRITIS S/P TOTAL KNEES, 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), LEFT (03/19) 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, 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) Sigmoid diverticulosis Supraventricular tachycardia (HCC) Subclinical hypothyroidism Expected: 05/09/2023 (Approximate), Expires: 05/09/2024 COMPREHENSIVE METABOLIC PANEL Lab Routine Cerebrovascular disease Dementia of the Alzheimer's type, with late onset, 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 obstruction/lower urinary tract symptoms Essential hypertension with goal blood pressure less than 140/90 History of PSVT (paroxysmal supraventricular tachycardia) 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) MCI (mild cognitive impairment) Internal hemorrhoid OSTEOARTHRITIS S/P TOTAL KNEES, 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), LEFT (03/19) 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, 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) Sigmoid diverticulosis Supraventricular tachycardia (HCC) Subclinical hypothyroidism Expected: 05/09/2023 (Approximate), Expires: 05/08/2024 TSH WITH FREE T4 IF INDICATED Lab Routine Cerebrovascular disease Dementia of the Alzheimer's type, with late onset, 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 obstruction/lower urinary tract symptoms Essential hypertension with goal blood pressure less than 140/90 History of PSVT (paroxysmal supraventricular tachycardia) 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) MCI (mild cognitive impairment) Internal hemorrhoid OSTEOARTHRITIS S/P TOTAL KNEES, 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), LEFT (03/19) 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, 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) Sigmoid diverticulosis Supraventricular tachycardia (HCC) Subclinical hypothyroidism Expected: 05/09/2023 (Approximate), Expires: 05/08/2024 LIPID PANEL WITH DIRECT LDL IF TG IS HIGH Lab Routine Cerebrovascular disease Dementia of the Alzheimer's type, with late onset, 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 obstruction/lower urinary tract symptoms Essential hypertension with goal blood pressure less than 140/90 History of PSVT (paroxysmal supraventricular tachycardia) 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) MCI (mild cognitive impairment) Internal hemorrhoid OSTEOARTHRITIS S/P TOTAL KNEES, 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), LEFT (03/19) 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, 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) Sigmoid diverticulosis Supraventricular tachycardia (HCC) Subclinical hypothyroidism Expected: 05/09/2023, Expires: 05/09/2024 URINALYSIS, REFLEX TO MICROSCOPIC Lab Routine Cerebrovascular disease Dementia of the Alzheimer's type, with late onset, 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 obstruction/lower urinary tract symptoms Essential hypertension with goal blood pressure less than 140/90 History of PSVT (paroxysmal supraventricular tachycardia) 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) MCI (mild cognitive impairment) Internal hemorrhoid OSTEOARTHRITIS S/P TOTAL KNEES, 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), LEFT (03/19) 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, 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) Sigmoid diverticulosis Supraventricular tachycardia (HCC) Subclinical hypothyroidism Expected: 05/09/2023 (Approximate), Expires: 08/07/2023 Health Maintenance Due Date Last Done Comments COVID-19 Vaccine (4 - Pfizer series) 09/08/2021 07/14/2021, 10/24/2020, 10/03/2020 Depression Screening, Annual for Pts 12 and Over 04/06/2023 04/06/2022, 04/03/2016 Influenza Vaccine (FLU shot) (#1) 2023 07/03/2022, 05/13/2021, 05/19/2020, Additional history exists TSH 04/30/2024 04/30/2023, 08/09/2022, 09/19/2022, Additional history exists DTaP,Tdap,and Td Vaccines (2 - Td or Tdap) 07/30/2025 07/30/2015, 06/22/2006 Albumin/Creatinine Ratio 10/10/2025 10/10/2022 Pneumococcal Vaccine: 65+ Years Completed 07/23/2017, 11/19/2015, 03/18/2007 Zoster Vaccines Completed 03/19/2021, 10/11, 06/10/2010 GARDASIL-HPV IMMUNIZATION SERIES Aged Out No longer [...] as of this encounter Visit Diagnoses Diagnosis Cerebrovascular disease- Primary Cerebrovascular disease, unspecified Dementia of the Alzheimer's type, with late onset, uncomplicated (HCC) Alzheimer's disease BPH without obstruction/lower urinary tract symptoms Hypertrophy of prostate without urinary obstruction and other lower urinary tract symptoms (LUTS) Essential hypertension with goal blood pressure less than 140/90 History of PSVT (paroxysmal supraventricular tachycardia) Personal history of other diseases of circulatory system 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) Other and unspecified hyperlipidemia MCI (mild cognitive impairment) Mild cognitive impairment, so stated Internal hemorrhoid Internal hemorrhoids without mention of complication OSTEOARTHRITIS S/P TOTAL KNEES, 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), LEFT (03/19) Generalized osteoarthrosis, unspecified site 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 No Care Teams Tailor'S Aide Relationship Specialty Start Date End Date Leilani Tomas DO [address] [facility] [place] [address] PCP - General Family Medicine 05/01/22 documented as of this encounter
--- OUTSIDE RECORDS SUMMARY | 2023-09-30 13:24 | External Medical Summary ---
Author Name Unknown Address Unknown Organization [id number]:[facility] [place] [address] [facility] [address] Laboratory Report Ordering Provider Test Date Status FLAQUITO FLAHERTY 06/21/2023 10:44:45 Final Observation Date Value Abnormality Reference (Units ) Status TSH 06/21/2023 10:44:45 1.82 0.27-4.20 (uIU/mL) Final Performing Location [facility] [place] [address] [facility] [place] [address]
--- OUTSIDE RECORDS SUMMARY | 2023-09-30 13:24 | External Medical Summary ---
Author Name Unknown Address Unknown Organization [id number]:[facility] [place] [address] [facility] [address] Laboratory Report Ordering Provider Test Date Status FLAQUITO FLAHERTY 06/21/2023 10:44:45 Final Observation Date Value Abnormality Reference (Units ) Status SYNC LEUKOCYTES IN BLOOD BY AUTOMATED COUNT 06/21/2023 10:44:45 5.82 4.00-10.80 (K/uL) Final Segs 06/21/2023 10:44:45 72.1 40.0-75.0 (%) Final Lymphs % 06/21/2023 10:44:45 19.8 18.0-42.0 (%) Final Monos 06/21/2023 10:44:45 6.2 1.0-11.0 (%) Final Eosinophils 06/21/2023 10:44:45 1.4 0.0-6.0 (%) Final Basos 06/21/2023 10:44:45 0.3 0.0-2.0 (%) Final Immature Granulocyte, Percent 06/21/2023 10:44:45 0.2 0.0-2.0 (%) Final Absolute Segs 06/21/2023 10:44:45 4.20 1.80-7.70 (K/uL) Final Lymphs, absolute 06/21/2023 10:44:45 1.15 1.00-4.80 (K/ul) Final Monos, Abs 06/21/2023 10:44:45 0.36 0.00-1.10 (K/uL) Final Eos, Abs 06/21/2023 10:44:45 0.08 0.00-0.70 (K/uL) Final Basos, Abs 06/21/2023 10:44:45 0.02 0.00-0.20 (K/uL) Final Immature Granulocytes, Number 06/21/2023 10:44:45 0.01 0.00-0.20 (K/uL) Final Performing Location [facility] [place] [address] [facility] [address]
--- OUTSIDE RECORDS SUMMARY | 2023-09-30 13:24 | External Medical Summary ---
Author Name Unknown Address Unknown Organization [id number]:[facility] [place] - [address] [facility] [place] [address] Laboratory Report Ordering Provider Test Date Status FLAQUITO FLAHERTY 06/21/2023 10:44:45 Final Observation Date Value Abnormality Reference (Units ) Status Triglyceride 06/21/2023 10:44:45 74 <=174 ( mg/dL) Final Triglyceride Reference Range s (mg/dL):
<150 Acceptable
150-174 Borderline high
175-499 High
>=500 Very high Cholesterol 06/21/2023 10:44:45 131 <200 (mg /dL) Final Total Cholesterol Reference Ranges (mg/dL):
<200 Desirable
200-239 Borderline high
>=240 High HDL 06/21/2023 10:44:45 64 >39 (mg/dL ) Final HDL Cholesterol Reference Ra nges (mg/dL):
>=60 High (Desirable)
<50 Low (Undesirable) For Females
<40 Low (Undesirable) For Males NON-HDL CHOLESTEROL 06/21/2023 10:44:45 67 <=159 (mg/dL) Final Non-HDL Cholesterol Referenc e Range (mg/dL):
<100 Target level for high risk ASCVD patient
<130 Optimal for general population
130-159 Near optimal for general population
160-189 Borderline High
190-219 High
>=220 Very High LDL, (calculated) 06/21/2023 10:44:45 52 <= 129 (mg/dL) Final LDL Cholesterol Reference Ra nges (mg/dL):
<70 Target level for high risk ASCVD patient
<100 Optimal for general population
100-129 Near optimal for general population
130-159 Borderline high
160-189 High
>=190 Very high Performing Location [facility] [place] - [address] [place] [address]
--- OUTSIDE RECORDS SUMMARY | 2023-09-30 13:24 | External Medical Summary ---
Author Name Unknown Address Unknown Organization [id number]:[facility] [place] [address] [facility] [address] Laboratory Report Ordering Provider Test Date Status FLAQUITO FLAHERTY 06/21/2023 10:44:45 Final Observation Date Value Abnormality Reference (Units ) Status BUN 06/21/2023 10:44:45 22 Above high normal 6-20 (mg/dL) Final Creatinine 06/21/2023 10:44:45 0.9 0.6-1.2 (mg/dL) Final Glomerular filtration rate/1.73 sq M.predicted [Volume Rate/Area] in Serum, Plasma or Blood by Creatinine-based formula (CKD-EPI) 06/21/2023 10:44:45 85 >=60 (mL/min) Final eGFR is calculated based on the CKD-EPI 2020 equation SODIUM 06/21/2023 10:44:45 143 135-146 (m mol/L) Final Potassium 06/21/2023 10:44:45 4.4 3.5-5.1 (m mol/L) Final Cl 06/21/2023 10:44:45 103 98-107 (mm ol/L) Final CO2 06/21/2023 10:44:45 25 22-32 (mmo l/L) Final Anion gap 06/21/2023 10:44:45 15 7-15 (mmol /L) Final Glucose 06/21/2023 10:44:45 68 Below low normal 70- 120 (mg/dL) Final Albumin 06/21/2023 10:44:45 4.9 3.8-5.0 (g /dL) Final AST (Aspartate aminotransferase) 06/21/2023 10:44:45 36 10-50 (U/L) Fin al Result may be falsely elevat ed due to hemolysis. Alk Phos 06/21/2023 10:44:45 94 35-130 (U/ L) Final Bilirubin, Total 06/21/2023 10:44:45 0.5 <=1 .2 (mg/dL) Final Calcium 06/21/2023 10:44:45 9.5 8.4-10.2 ( mg/dL) Final Protein 06/21/2023 10:44:45 7.1 6.0-8.3 (g /dL) Final ALT (Alanine aminotransferase) 06/21/2023 10:44:45 34 10-50 (U/L) Final Performing Location [facility] [place] [address] [facility] [address]
--- OUTSIDE RECORDS SUMMARY | 2023-09-30 13:24 | External Medical Summary | Summary of Care ---
Author Name Unknown Organization [facility] Address [address] [place] [address] Phone [phone] Care Team Providers Care Advertisement Distributor Name Role Phone Leilani Tomas DO Primary Care Provider [phone] [phone] Reason for Visit * Reason Onset Date Comments Order Request 05/02/2023 Encounter Details Date Type Department Care Team Description 05/02/2023 Telephone Family Practice [place] [facility] [address] [place] [address] Leilani Tomas DO [address] [facility] [place] [address] Order Request Allergies No known active allergiesdocumented as of this encounter (statuses as of 05/03/2023) Medications Medication Sig Dispensed Refills Start Date [...] as of this encounter (statuses as of 05/03/2023) Active Problems Problem Noted Date Supraventricular tachycardia 03/07/2023 Dementia of the Alzheimer's type, with l ate onset, uncomplicated 11/21/2021 Other atherosclerosis of [place] arteries of extremities, bilateral legs 11/21/2021 BPH [...] as of this encounter (statuses as of 05/03/2023) Resolved Problems Problem Noted Date Resolved Date [...] as of this encounter (statuses as of 05/03/2023) Immunizations Name Administration Dates Next Due COVID-19 mRNA, LNP-s, No Pre serve, 2-Dose Series (HihoCoder) 07/14/2021,10/24/2020,10/03/2020 Diptheria/Tetanus (Adult) 06/22/2006 Pneumococcal Conjugate Vacc, [...] encounter Miscellaneous Notes * Telephone Encounter - Geovanna Brush CPhT - 05/03/2023 1:50 PM EDT [facility] calling to check on the status of an order to be faxed to [facility] for a tub transfer bench. Thank you, Veronica Brush [employer] [facility] (Former[facility]) 05/03/2023,1:51 PM * Telephone Encounter - Vivian Coronado LPN - 05/03/2023 11:59 AM EDT Faxed to [facility] [employer] * Telephone Encounter - DARRYL Hall - 05/02/2023 6:26 PM EDT An order was requested for this patient. Name of Requesting Provider: Dr. Tomas Order Requested: Tub Transfer Bench Diagnosis/Reason for Request: Hospice recommended it to help with showering If order request is for Mammogram: Is the patient having any breast symptoms? N/A Is there a chance of ? N/A Has the patient had any breast problems in the past? NA Does the order need to be faxed somewhere? If so, where?: Yes. [facility] Fax Number, if applicable: Not sure Call Back Number: [phone] If the caller is not a current patient, please advise the patient to call their current PCP to havethe order's prior to being seen in our office. The patient was informed that our providers would not order anything (medication, labs, etc.) prior to being seen. documented in this encounter Plan of Treatment Upcoming Encounters Date Type Specialty Care Team Description 05/09/2023 Office Visit Family Medicine Leilani Tomas, [address] [facility] [place] [address] 07/10/2023 Office Visit Neurology Romina Peña PA-C [address] [place] [address] [place] [address] Health Maintenance Due Date Last Done Comments COVID-19 Vaccine (4 - Pfizer series) 09/08/2021 07/14/2021, 10/24/2020, 10/03/2020 Depression Screening, Annual for Pts 12 and Over 04/06/2023 04/06/2022, 04/03/2016 Influenza Vaccine (FLU shot) (#1) 2023 07/03/2022, 05/13/2021, 05/19/2020, Additional history exists TSH 04/30/2024 04/30/2023, 04/11, 09/19/2022, Additional history exists DTaP,Tdap,and Td Vaccines [...] late onset, uncomplicated (HCC)- Primary Alzheimer's disease OSTEOARTHRITIS S/P TOTAL KNEES, 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), LEFT (03/19) Generalized osteoarthrosis, unspecified site documented in this encounter Advance Directives Documents on File Type Date Recorded Patient Manufacturing Intern Expl anation POLST 04/21/2023 [place] DERS [...] the patient have Health Care Power of Regional Geodetic Advisor? No Care Teams Advertisement Distributor Relationship Specialty Start Date End Date Leilani Tomas DO [address] [facility] [place] [address] PCP - General Family Medicine 05/01/22 documented as of this encounter
--- OUTSIDE RECORDS SUMMARY | 2023-09-30 13:24 | External Medical Summary | Summary of Care ---
Author Name Unknown Organization [facility] Address [address] [place] [address] Phone [phone] Care Team Providers Care Music Executive Name Role Phone Leilani Tomas DO Primary Care Provider [phone] [phone] Reason for Visit * Reason Onset Date Comments Order Request 05/16/2023 Shower Bench. FYI 05/16/2023 FYI Encounter Details Date Type Department Care Team Description 05/16/2023 Telephone Family Practice [place] [facility] [address] [place] [address] Leilani Tomas DO [address] [place] [address] Order Request (Shower Bench. ); FYI (I) Allergies No known active allergiesdocumented as of this encounter (statuses as of 06/14/2023) Medications Medication Sig Dispensed Refills Start Date [...] TWICE DAILY 180 Tablet 1 05/16/2023 Active documented as of this encounter (statuses as of 06/14/2023) Active Problems Problem Noted Date Supraventricular tachycardia 03/07/2023 Dementia of the Alzheimer's type, with l ate onset, uncomplicated 11/21/2021 Other atherosclerosis of [place] arteries of extremities, bilateral legs 11/21/2021 BPH [...] as of this encounter (statuses as of 06/14/2023) Resolved Problems Problem Noted Date Resolved Date [...] as of this encounter (statuses as of 06/14/2023) Immunizations Name Administration Dates Next Due COVID-19 [...] Miscellaneous Notes * Telephone Encounter - DARRYL Hardin - 06/14/2023 3:39 PM EDT Calling to report [t declined order * Telephone Encounter - DARRYL Reza - 05/18/2023 11:05 AM EDT Tried to call Grace at . Was on hold for 10+ minutes and there were 9 callers ahead of me. [facility] transfer bench along with office note from 05/09 to [facility]. * Telephone Encounter - Leilani Tomas DO - 05/17/2023 2:44 PM EDT See if they can do a nurse visit?. Home health was going out to the house? * Telephone Encounter - DARRYL Santiago - 05/16/2023 2:32 PM EDT Grace from [facility] calling regarding order she received for shower bench. States patient will haveto be re seen as office visit notes did not state any need for tub transfer bench. Pt can be seen in office or telemed. [facility] will need a new order and new office visit notes. Phone number - [phone] documented in this encounter Plan of Treatment Upcoming Encounters Date Type Specialty Care Team Description 08/01/2023 Office Visit Family Medicine Leilani Tomas DO [address] [facility] [place] [address] Health Maintenance Due Date Last Done Comments Depression Screening 04/06/2023 04/06/2022, 04/03/20 16 COVID-19 Vaccine ( season) 2023 07/14/2021, 10/24/2020, 10/03/2020 Influenza Vaccine (FLU shot) (#1) 2023 07/03/2022, [...] Documents on File Type Date Recorded Patient Roller Skate Assembler Expl anation POLST 04/21/2023 [place] D[place] [...] the patient have Health Care Power of Induction Furnace Operator? No Care Teams Music Executive Relationship Specialty Start Date End Date Leilani Tomas DO [address] [facility] [place] [address] PCP - General Family Medicine 05/01/22 documented as of this encounter
--- OUTSIDE RECORDS SUMMARY | 2023-09-30 13:24 | External Medical Summary | Summary of Care ---
Author Name Unknown Organization [facility] Address [address] [place] [address] Phone [phone] Care Team Providers Care Clock And Watch Assembler Name Role Phone Leilani Tomas DO Primary Care Provider [phone] [phone] Reason for Visit * Reason Onset Date Comments Order Request 05/16/2023 Shower Bench. Encounter Details Date Type Department Care Team Description 05/16/2023 Telephone Family Practice [place] [facility] [address] [place] [address] Leilani Tomas DO [address] [facility] [place] [id number] Order Request (Shower Bench. ) Allergies No known active allergiesdocumented as of this encounter (statuses as of 05/18/2023) Medications Medication Sig Dispensed Refills Start Date [...] as of this encounter (statuses as of 05/18/2023) Active Problems Problem Noted Date Supraventricular tachycardia 03/07/2023 Dementia of the Alzheimer's type, with l ate onset, uncomplicated 11/21/2021 Other atherosclerosis of [place] arteries of extremities, bilateral legs 11/21/2021 BPH [...] as of this encounter (statuses as of 05/18/2023) Resolved Problems Problem Noted Date Resolved Date [...] as of this encounter (statuses as of 05/18/2023) Immunizations Name Administration Dates Next Due COVID-19 [...] [facility]. * Telephone Encounter - Leilani Buza Tomas, DO - 05/17/2023 2:44 PM EDT See if they can do a nurse visit?. Home health was going out to the house? * Telephone Encounter - DARRYL Santiago - 05/16/2023 2:32 PM EDT [facility] regarding order she received for shower bench. States patient will haveto be re seen as office visit notes did not state any need for tub transfer bench. Pt can be seen in office or telemed. [facility] will need a new order and new office visit notes. Phone number - [phone] documented in this encounter Plan of Treatment Upcoming Encounters Date Type Specialty Care Team Description 07/10/2023 Office Visit Neurology Romina Peña PA-C [address] [facility] [address] 08/01/2023 Office Visit Family Medicine Leilani Tomas DO [address] [place] [address] 08/15/2023 Laboratory Laboratory [address] [place] [address] Health Maintenance Due Date Last Done Comments COVID-19 Vaccine (4 - Pfizer series) 09/08/2021 07/14/2021, 10/24/2020, 10/03/2020 Depression Screening 04/06/2023 04/06/2022, 04/03/20 16 Influenza Vaccine (FLU shot) (#1) 2023 07/03/2022, [...] Documents on File Type Date Recorded Patient Barrel Cutter Expl anation POLST 04/21/2023 [place] [...] the patient have Health Care Power of Care Program Resident? No Care Teams Clock And Watch Assembler Relationship Specialty Start Date End Date Leilani Tomas DO [address] [facility] [place] [address] PCP - General Family Medicine 05/01/22 documented as of this encounter
--- OUTSIDE RECORDS SUMMARY | 2023-09-30 13:24 | External Medical Summary | Summary of Care ---
Author Name Unknown Organization [facility] Address [address] [place] [address] Phone [phone] Care Team Providers Care Tree Chipper Name Role Phone Leilani Tomas Prasannajanak Primary Care Provider [phone] [phone] Reason for Visit * Reason Comments Outpatient Testing Encounter Details Date Type Department Care Team Description 06/21/2023 Laboratory Laboratory [place] [facility] [address] [place] [address] [facility] [address] [facility] [place] [address] Cerebrovascular disease; Dementia of the Alzheimer's type, with late onset, uncomplicated (HCC); BPH without obstruction/lower urinary tract symptoms; Essential hypertension with goal blood pressure less than 140/90; History of PSVT (paroxysmal supraventricular tachycardia); 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); MCI (mild cognitive impairment); Internal hemorrhoid; OSTEOARTHRITIS S/P TOTAL KNEES, 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), LEFT (03/19); Other atherosclerosis of [place] arteries of extremities, bilateral legs (HCC); Progressive vascular leukoencephalopathy (HCC); Sigmoid diverticulosis; Supraventricular tachycardia; Subclinical hypothyroidism Allergies No known active allergiesdocumented as of this encounter (statuses as of 06/21/2023) Medications Medication Sig Dispensed Refills Start Date [...] as of this encounter (statuses as of 06/21/2023) Active Problems Problem Noted Date Supraventricular tachycardia 03/07/2023 Dementia of the Alzheimer's type, with l ate onset, uncomplicated 11/21/2021 Other atherosclerosis of [place] arteries of extremities, bilateral legs 11/21/2021 BPH [...] as of this encounter (statuses as of 06/21/2023) Resolved Problems Problem Noted Date Resolved Date [...] 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 01/10/2011 05/21/2012 OVERWEIGHT 09/29/2010 10/17/2011 EPISODE [...] as of this encounter (statuses as of 06/21/2023) Immunizations Name Administration Dates Next Due COVID-19 [...] Encounters Date Type Specialty Care Team Description 06/27/2023 Office Visit Family Medicine TomasLeilani guzman, [address] [facility] [place] [address] Pending Results Name Type Priority Associated Diagnoses Date /Time CBC WITH WBC DIFFERENTIAL Lab Routine Cerebrovascular disease Dementia of the Alzheimer's type, with late onset, 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 obstruction/lower urinary tract symptoms Essential hypertension with goal blood pressure less than 140/90 History of PSVT (paroxysmal supraventricular tachycardia) 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) MCI (mild cognitive impairment) Internal hemorrhoid OSTEOARTHRITIS S/P TOTAL KNEES, 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), LEFT (03/19) Other atherosclerosis of [place] arteries of extremities, 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) Sigmoid diverticulosis Supraventricular tachycardia Subclinical hypothyroidism 06/21/2023 10:44 AM EDT COMPREHENSIVE METABOLIC PANEL Lab Routine Cerebrovascular disease Dementia of the Alzheimer's type, with late onset, 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 obstruction/lower urinary tract symptoms Essential hypertension with goal blood pressure less than 140/90 History of PSVT (paroxysmal supraventricular tachycardia) 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) MCI (mild cognitive impairment) Internal hemorrhoid OSTEOARTHRITIS S/P TOTAL KNEES, 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), LEFT (03/19) Other atherosclerosis of [place] arteries of extremities, 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) Sigmoid diverticulosis Supraventricular tachycardia Subclinical hypothyroidism 06/21/2023 10:44 AM EDT TSH WITH FREE T4 IF INDICATED Lab [...] 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), LEFT (03/19) Other atherosclerosis of [place] arteries of extremities, 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) Sigmoid diverticulosis Supraventricular tachycardia Subclinical hypothyroidism 06/21/2023 10:44 AM EDT LIPID PANEL WITH DIRECT LDL IF TG [...] 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), LEFT (03/19) Other atherosclerosis of [place] arteries of extremities, 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) Sigmoid diverticulosis Supraventricular tachycardia Subclinical hypothyroidism 06/21/2023 10:44 AM EDT URINALYSIS, REFLEX TO MICROSCOPIC Lab Routine Cerebrovascular disease Dementia of the Alzheimer's type, with late onset, 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 obstruction/lower urinary tract symptoms Essential hypertension with goal blood pressure less than 140/90 History of PSVT (paroxysmal supraventricular tachycardia) 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) MCI (mild cognitive impairment) Internal hemorrhoid OSTEOARTHRITIS S/P TOTAL KNEES, 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), LEFT (03/19) Other atherosclerosis of [place] arteries of extremities, 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) Sigmoid diverticulosis Supraventricular tachycardia Subclinical hypothyroidism 06/21/2023 10:44 AM EDT CBC Lab Routine Cerebrovascular disease Dementia of the Alzheimer's type, with late onset, 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 obstruction/lower urinary tract symptoms Essential hypertension with goal blood pressure less than 140/90 History of PSVT (paroxysmal supraventricular tachycardia) 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) MCI (mild cognitive impairment) Internal hemorrhoid OSTEOARTHRITIS S/P TOTAL KNEES, 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), LEFT (03/19) Other atherosclerosis of [place] arteries of extremities, 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) Sigmoid diverticulosis Supraventricular tachycardia Subclinical hypothyroidism 06/21/2023 10:44 AM EDT DIFFERENTIAL, AUTOMATED Lab Routine Cerebrovascular disease Dementia of the Alzheimer's type, with late onset, 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 obstruction/lower urinary tract symptoms Essential hypertension with goal blood pressure less than 140/90 History of PSVT (paroxysmal supraventricular tachycardia) 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) MCI (mild cognitive impairment) Internal hemorrhoid OSTEOARTHRITIS S/P TOTAL KNEES, 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), LEFT (03/19) Other atherosclerosis of [place] arteries of extremities, 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) Sigmoid diverticulosis Supraventricular tachycardia Subclinical hypothyroidism 06/21/2023 10:44 AM EDT Health Maintenance Due Date Last Done Comments [...] of this encounter Visit Diagnoses Diagnosis Cerebrovascular disease Cerebrovascular disease, unspecified Dementia of [...] Generalized osteoarthrosis, unspecified site Other atherosclerosis of [place] arteries of extremities, 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) Progressive multifocal leukoencephalopathy Sigmoid diverticulosis Diverticulosis of colon (without mention of hemorrhage) Supraventricular tachycardia Other specified cardiac dysrhythmias Subclinical hypothyroidism Other specified acquired hypothyroidism documented in this encounter Advance Directives Documents on File Type Date Recorded Patient Etl Informatica Developer Expl anation POLST 04/21/2023 [place] [...] the patient have Health Care Power of Door Frame Assembler Machine? No Care Teams Tree Chipper Relationship Specialty Start Date End Date Leilani Tomas DO [address] [facility] [place] [address] PCP - General Family Medicine 05/01/22 documented as of this encounter
--- OUTSIDE RECORDS SUMMARY | 2023-09-30 13:24 | External Medical Summary | Summary of Care ---
Author Name Unknown Organization [facility] Address [address] [place] [address] Phone [phone] Care Team Providers Care Tab Card Press Operator Name Role Phone Leilani Tomas DO Primary Care Provider +1 [phone] Reason for Visit * Reason Onset Date Comments Appointment 06/12/2023 Huseyin/Thom only Encounter Details Date Type Department Care Team Description 06/12/2023 Telephone Family Practice [place] [facility] [address] [place] [id number] Leilani Tomas DO [address] [facility] [place] [address] Appointment (Huseyin/Thom only) Allergies No known active allergiesdocumented as of this encounter (statuses as of 06/19/2023) Medications Medication Sig Dispensed Refills Start Date [...] as of this encounter (statuses as of 06/19/2023) Active Problems Problem Noted Date Supraventricular tachycardia 03/07/2023 Dementia of the Alzheimer's type, with l ate onset, uncomplicated 11/21/2021 Other atherosclerosis of [place] arteries of extremities, bilateral legs 11/21/2021 BPH [...] as of this encounter (statuses as of 06/19/2023) Resolved Problems Problem Noted Date Resolved Date [...] as of this encounter (statuses as of 06/19/2023) Immunizations Name Administration Dates Next Due COVID-19 [...] Miscellaneous Notes * Telephone Encounter - DARRYL Mei - 06/19/2023 10:01 AM EDT Tentatively scheduled 06/27 opening. Left message on machine for call back to confirm. * Telephone Encounter - DARRYL Reza - 06/12/2023 3:42 PM EDT Pt refuses to see anyone else but Dr. Tomas. If possible, please reschedule his 07/31 appt with her (sooner if necessary). documented in this encounter Plan of Treatment Upcoming Encounters Date Type Specialty Care Team Description 06/27/2023 Office Visit Family Medicine Leilani Tomas, [address] [place] [address] 08/01/2023 Office Visit Family Medicine Leilani Tomas, [address] [place] [address] Health Maintenance Due Date Last Done Comments Depression Screening 04/06/2023 04/06/2022, 04/03/20 16 COVID-19 Vaccine ( season) 2023 07/14/2021, 10/24/2020, 10/03/2020 Influenza Vaccine (FLU shot) (#1) 2023 07/03/2022, 05/13/2021, 05/19/2020, Additional history exists TSH 04/30/2024 04/30/2023, /09/2022, 09/19/2022, Additional history exists DTaP,Tdap,and Td Vaccines [...] Documents on File Type Date Recorded Patient Watch Hairspring Assembler Expl anation POLST 04/21/2023 [place] [...] the patient have Health Care Power of Payable Manager? No Care Teams Tab Card Press Operator Relationship Specialty Start Date End Date Leilani Tomas DO [address] [facility] [place] [address] PCP - General Family Medicine 05/01/22 documented as of this encounter
--- OUTSIDE RECORDS SUMMARY | 2023-09-30 13:24 | External Medical Summary | Summary of Care ---
Author Name Unknown Organization [facility] Address [address] [place] [address] Phone [phone] Care Team Providers Care Metal Numerical Tool Programmer Name Role Phone Leilani Tomas DO Primary Care Provider +1 [phone] Reason for Visit * Reason Onset Date Comments Appointment 06/12/2023 Huseyin/Thom only Encounter Details Date Type Department Care Team Description 06/12/2023 Telephone Family Practice [place] [facility] [address] [place] [place] [id number] Leilani Tomas DO [address] [facility] [place] [address] Appointment (Huseyin/Thom only) Allergies No known active [...] ate onset, uncomplicated 11/21/2021 Other atherosclerosis of [place] arteries of extremities, bilateral legs 11/21/2021 BPH [...] * Telephone Encounter - DARRYL Reza - 06/19/2023 12:11 PM EDT Spoke with patient's . Will keep 06/[address] Tomas. Aug 01 appt cx'd. * Telephone Encounter - DARRYL Mei - [...] 06/27/2023 Office Visit Family Medicine Leilani Tomas, [address] [facility] [place] [address] Health Maintenance Due Date Last Done Comments [...] Documents on File Type Date Recorded Patient Sheep Clipper Expl anation POLST 04/21/2023 [place] D[place] [...] the patient have Health Care Power of Heavy Equipment Diesel Mechanic? No Care Teams Metal Numerical Tool Programmer Relationship Specialty Start Date End Date Leilani Tomas DO [address] [facility] [place] [address] PCP - General Family Medicine 05/01/22 documented as of this encounter
--- OUTSIDE RECORDS SUMMARY | 2023-09-30 13:24 | External Medical Summary | Summary of Care ---
Author Name Unknown Organization [facility] Address [address] [place] [address] Phone [phone] Care Team Providers Care Senior J2Ee Developer Name Role Phone Leilani Tomas DO Primary Care Provider [phone] [phone] Reason for Visit * Reason Onset Date Comments Order Request 05/02/2023 Encounter Details Date Type Department Care Team Description 05/02/[address] [place] [place] [address] Leilani Tomas DO [address] [facility] [place] [address] Order Request Allergies No known active allergiesdocumented [...] ate onset, uncomplicated 11/21/2021 Other atherosclerosis of [place] arteries of extremities, bilateral legs 11/21/2021 BPH [...] mRNA, LNP-s, No Pre serve, 2-Dose Series ([employer]) 07/14/2021,10/24/2020,10/03/2020 Diptheria/Tetanus (Adult) 06/22/2006 Pneumococcal Conjugate Vacc, [...] encounter Miscellaneous Notes * Telephone Encounter - Vivian Coronado LPN - 05/03/2023 11:59 AM EDT Faxed to [facility] * Telephone Encounter - DARRYL Hall - [...] be faxed somewhere? If so, where?: Yes. [facility] Fax Number, if applicable: Not sure Call Back Number: [phone] If the caller is not a current [...] 05/09/2023 Office Visit Family Medicine Leilani Tomas, [address] [facility] [place] [address] 07/10/2023 Office Visit Neurology Romina Peña PA-C [address] [place], [place] [address] [address] Health Maintenance Due Date Last Done Comments [...] Documents on File Type Date Recorded Patient Open Tenter Operator Expl anation POLST 04/21/2023 [place] [...] the patient have Health Care Power of Lanolin Plant Operator? No Care Teams Senior J2Ee Developer Relationship Specialty Start Date End Date Leilani Tomas DO [address] [facility] [place] [address] PCP - General Family Medicine 05/01/22 documented as of this encounter
--- OUTSIDE RECORDS SUMMARY | 2023-09-30 13:24 | External Medical Summary ---
Author Name Unknown Address Unknown Organization K01:[facility] [place] [address] [facility] [facility] [address] [facility] [address] Laboratory Report Ordering Provider Test Date Status FLAQUITO FLAHERTY 06/21/2023 10:44:45 Final Observation Date Value Abnormality Reference (Units ) Status Color of Urine by Auto 06/21/2023 10:44:45 Light Yellow Colorless, Light Yellow, Yellow, Dark Yellow Final Clarity, Urine 06/21/2023 10:44:45 Clear Clear Final Glucose [Mass/volume] in Urine by Automated test strip 06/21/2023 10:44:45 Negative Negative (mg/dL) Final Bilirubin.total [Presence] in Urine by Automated test strip 06/21/2023 10:44:45 Negative Negative Final Ketones [Mass/volume] in Urine by Automated test strip 06/21/2023 10:44:45 Negative Negative (mg/dL) Final Specific gravity, Urine 06/21/2023 10:44:45 1.018 1.003-1.030 Final Hemoglobin [Presence] in Urine by Automated test strip 06/21/2023 10:44:45 Negative Negative Final pH, Urine 06/21/2023 10:44:45 6.0 5.0-7.5 (Units) Final Protein [Mass/volume] in Urine by Automated test strip 06/21/2023 10:44:45 Negative Negative (mg/dL) Final Urobilinogen [Mass/volume] in Urine by Automated test strip 06/21/2023 10:44:45 Normal Normal (mg/dL) Final Nitrite [Presence] in Urine by Automated test strip 06/21/2023 10:44:45 Negative Negative Final Leukocyte esterase [Presence] in Urine by Automated test strip 06/21/2023 10:44:45 Negative Negative Final Annotation Comment 06/21/2023 10:44:45 Final Screen negative - Microscopi c not performed. Performing Location LABORATORY [facility] - [address] [facility] [address]
--- OUTSIDE RECORDS SUMMARY | 2023-09-30 13:24 | External Medical Summary | Summary of Care ---
Author Name Unknown Organization [facility] Address [address] [place] [address] Phone [phone] Care Team Providers Care Air Quality Chemist Name Role Phone Leilani Tomas DO Primary Care Provider [phone] [phone] Reason for Referral * Evaluate & Treat - Unlimited Visits (Within 30 days (routine)) - Authorized Specialty Diagnoses / Procedures Referred By Contac t Referred To Contact Dermatology Diagnoses Basal cell carcinoma (BCC), unspecified site Leilani Tomas DO [address] [facility] [place] [address] Referral ID Status Reason Start Date Expiration Date Visits Requested Visits Authorized [id number] Authorized Specialty Services Required 3 999 999 [...] late onset, uncomplicated (HCC) Leilani Tomas DO [address] [place] [address] Referral ID Status Reason Start Date Expiration Date Visits Requested Visits Authorized [id number] Authorized Specialty Services Required 3 [phone] Question Answer Referral Priority Within 10 days (routine) Where should this appointment be scheduled? Matt Comments Documentation of Neys-ml-Adpy Encounter Addendum Patient Name: Александр Booker I certify that this patient is under my care and that I, or a nurse practitioner or physician's assistant wrestling coach working with me, had a phkt-il-hyhd encounter that meets the physician qleq-zg-alqw encounter requirements with this patient on: see [...] effort and are for medical reasons or jewish services or infrequently or of short duration [...] late onset, uncomplicated (HCC) Leilani Tomas DO [address] [facility] [place] [address] Referral ID Status Reason Start Date Expiration Date Visits Requested Visits Authorized [id number] Authorized Specialty Services Required 3 [phone] Question Answer Referral Priority Within 10 days (routine) Where should this appointment be scheduled? [facility] Does patient have multiple co-morbid conditions? Yes Does patient have [facility] insurance? Yes Comments Is referral coming from Care Coordination and Integration? No Reason for Visit * Reason Comments Routine Exam Encounter Details Date Type Department Care Team Description 06/27/2023 Office Visit [facility] [place] [address] [facility] [place] [address] Leilani Tomas DO [address] [facility] [place] [address] Dementia of the Alzheimer's type, with late onset, uncomplicated (HCC)*; Other pancytopenia (HCC); BPH without obstruction/lower urinary tract symptoms; Cerebrovascular disease; Essential hypertension with goal blood pressure less than 140/90; History of PSVT (paroxysmal supraventricular tachycardia); 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); Internal hemorrhoid; MCI (mild cognitive impairment); OSTEOARTHRITIS S/P TOTAL KNEES, 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), LEFT (03/19); Other atherosclerosis of [place] arteries of extremities, bilateral legs (HCC); Progressive [...] ate onset, uncomplicated 11/21/2021 Other atherosclerosis of [place] arteries of extremities, bilateral legs 11/21/2021 BPH [...] He would a follow-up visit with his teaseler, but I do not have any updated [...] uncomplicated (HCC) G30.1, F02.80 Other atherosclerosis of [place] arteries of extremities, bilateral legs (HCC) I70.293 [...] by Alexx Mejía Jr., MD at OR [facility] Review of patient's allergies indicates: No Known [...] Future; Expected date: 06/27/2023 Other atherosclerosis of [place] arteries of extremities, bilateral legs (HCC) - [...] declining. Will get him set up with [employer] at home. They are looking to move into [place]. Will send [facility] for medication adjustment, and home PT. 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, bilateral legs (HCC) Progressive [...] 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), LEFT (03/19) Other atherosclerosis of [place] arteries of extremities, bilateral legs (HCC) Progressive [...] 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), LEFT (03/19) Other atherosclerosis of [place] arteries of extremities, bilateral legs (HCC) Progressive [...] 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), LEFT (03/19) Other atherosclerosis of [place] arteries of extremities, bilateral legs (HCC) Progressive [...] Generalized osteoarthrosis, unspecified site Other atherosclerosis of [place] arteries of extremities, 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 No Care Teams Air Quality Chemist Relationship Specialty Start Date End Date Leilani Tomas DO [address] [facility] [place] [address] PCP - General Family Medicine 05/01/22 documented as of this encounter
--- OUTSIDE RECORDS SUMMARY | 2023-09-30 13:24 | External Medical Summary | Summary of Care ---
Author Name Unknown Organization [facility] Address [address] [place] [address] Phone [phone] Care Team Providers Care Historic Clothing And Costume Maker Name Role Phone Leilani Tomas DO Primary Care Provider [phone] Encounter Details Date Type Department Care Team Description 06/25[facility] [place] [address] Leilani Tomas DO [address] [place] [address] Allergies No known active allergiesdocumented as of this encounter (statuses as of 06/25/2023) Medications Medication Sig Dispensed Refills Start Date [...] as of this encounter (statuses as of 06/25/2023) Active Problems Problem Noted Date Supraventricular tachycardia 03/07/2023 Dementia of the Alzheimer's type, with l ate onset, uncomplicated 11/21/2021 Other atherosclerosis of [place] arteries of extremities, bilateral legs 11/21/2021 BPH [...] as of this encounter (statuses as of 06/25/2023) Resolved Problems Problem Noted Date Resolved Date [...] as of this encounter (statuses as of 06/25/2023) Immunizations Name Administration Dates Next Due COVID-19 [...] Telephone Encounter - Leilani Tomas DO - 06/25/2023 9:44 PM EDT Blood work reviewed. Glucose low and make sure patient not feeling symptoms. Mild anemia and mildly low platelet count. Had been evaluated by Hematology in the past. Recommended to monitor hemoglobin, and if falls to <10, or other blood issues, then would re-establish withhematology. Will discuss at his follow up visit, 06/27. documented in this encounter Plan of Treatment Upcoming Encounters Date Type Specialty Care Team Description 06/27/2023 Office Visit Family Medicine Leilani Tomas, [address] [facility] [place] [address] Health Maintenance Due Date Last Done Comments Depression Screening 04/06/2023 04/06/2022, 04/03/20 16 COVID-19 Vaccine ( season) 2023 07/14/2021, 10/24/2020, 10/03/2020 Influenza Vaccine (FLU shot) (#1) 2023 07/03/2022, 05/13/2021, 05/19/2020, Additional history exists TSH 06/21/2024 06/21/2023, 04/11, 04/30/2023, Additional history [...] Documents on File Type Date Recorded Patient Manager Budget Expl anation POLST 04/21/2023 [place] DERS [...] the patient have Health Care Power of Plan Examiner? No Care Teams Historic Clothing And Costume Maker Relationship Specialty Start Date End Date Leilani Tomas DO [address] [facility] [place] [id number] PCP - General Family Medicine 05/01/22 documented as of this encounter
--- OUTSIDE RECORDS SUMMARY | 2023-09-30 13:24 | External Medical Summary | Summary of Care ---
Author Name Unknown Organization [facility] Address [address] [facility] [place] [address] Phone [phone] Care Team Providers Care Instructor Military Science Name Role Phone José Miguel Tomasison Prasannajanak Primary Care Provider [phone] [phone] Reason for Visit * Reason Comments eRx-Medication Refill Encounter Details Date Type Department Care Team Description 05/14/2023 Refill Neurology [place] [address] [place] [address] Romina Lyons PA-C [address] [place] [address] Memory loss Allergies No known active allergiesdocumented as of this encounter (statuses as of 05/16/2023) Medications Medication Sig Dispensed Refills Start Date [...] TWICE DAILY 180 Tablet 1 05/16/2023 Active Memantine HCl 5 MG Oral Tablet (Namenda)Indication s:Memory loss TAKE 1 TABLET BY MOUTH TWICE DAILY 180 Tablet 1 11/09/2022 05/16/20 23 Discontinued documented as of this encounter (statuses as of 05/16/2023) Active Problems Problem Noted Date Supraventricular tachycardia 03/07/2023 Dementia of the Alzheimer's type, with l ate onset, uncomplicated 11/21/2021 Other atherosclerosis of [place] arteries of extremities, bilateral legs 11/21/2021 BPH [...] as of this encounter (statuses as of 05/16/2023) Resolved Problems Problem Noted Date Resolved Date [...] as of this encounter (statuses as of 05/16/2023) Immunizations Name Administration Dates Next Due COVID-19 [...] encounter Miscellaneous Notes * Telephone Encounter - Lainey Lewis [facility] - 05/16/2023 11:14 AM EDTSigned Prescriptions: Disp Refills Memantine HCl 5 MG Oral Tablet (Namenda) 180 Ta*1 Sig: TAKE 1 TABLET BY MOUTH TWICE DAILY Authorizing Provider: ROMINA LYONS Ordering User: LAINEY LEWIS * Telephone Encounter - Interface, E-Rx S[facility] Inbound - 05/16/2023 11:09 AM EDT Pending Prescriptions: Disp Refills Memantine HCl 5 MG Oral Tablet [Pharmacy M*180 Ta*0 Sig: TAKE 1 TABLET BY MOUTH TWICE DAILY * Telephone Encounter - Domonique Goodwin diplomatic courier - 05/16/2023 11:07 AM EDT Pending Prescriptions: Disp Refills Memantine HCl 5 MG Oral Tablet [Pharmacy M*180 Ta*0 Sig: TAKE 1 TABLET BY MOUTH TWICE DAILY * Telephone Encounter - Domonique Goodwin diplomatic courier - 05/16/2023 11:07 AM EDT Patient is up to date for office visits. Pending Prescriptions: Disp Refills Memantine HCl 5 MG Oral Tablet (Namenda) *180 Ta*0 Sig: TAKE 1 TABLET BY MOUTH TWICE DAILY Last Visit: 01/04/2023 (in office), Visit date not found (telemedicine) Next Visit: 07/10/2023 If no future appointments scheduled, and last appointment is greater than a year ago, please schedule patient for a follow-up appointment Last date the medication was ordered: 11/09 Pharmacy: [id number] [facility] [address] [place] Is this request for a controlled substance?No it is not controlled. Urine Drug Screen:No results found for this or any previous visit. Patient Phone Numbers Labs: Lab Results Component Value Date/Time CREAT 0.8 04/30/2023 09:37 AM CREAT 0.8 08/18/2020 12:00 AM CREAT 0.9 06/01/2020 10:10 AM POTASSIUM 4.0 04/30/2023 09:37 AM POTASSIUM 4.5 08/18/2020 12:00 AM POTASSIUM 4.2 06/01/2020 10:10 AM TSH 1.66 04/30/2023 09:37 AM TSH 1.68 04/30/2023 09:37 AM TSH 1.28 06/01/2020 10:10 AM LDLCALC 53 04/30/2023 09:37 AM LDLCALC 32 06/01/2020 10:10 AM LDLDIRECT 55 09/19/2022 10:51 AM LDLDIRECT NOT APPLICABLE 06/01/2020 10:10 AM LDLDIRECT 52 03/26/2017 07:37 AM ALT 34 04/30/2023 09:37 AM ALT 33 06/01/2020 10:10 AM * Telephone Encounter - Pipo wolf [facility] - 05/15/2023 8:12 AM EDT documented in this encounter Plan of Treatment Upcoming Encounters Date Type Specialty Care Team Description 07/10/2023 Office Visit [facility] [address] [facility] [address] 08/01/2023 Office Visit Family Medicine Leilani Tomas DO [address] [facility] [place] [address] Health Maintenance Due Date Last Done Comments [...] as of this encounter Visit Diagnoses Diagnosis Memory loss documented in this encounter Advance Directives Documents on File Type Date Recorded Patient Machine Lead Burner Expl anation POLST 04/21/2023 [place] OR [facility] FOR LIFE-SUSTAINING TREATMENT Latest Code [...] the patient have Health Care Power of Human Resource Assistant? No Care Teams Instructor Military Science Relationship Specialty Start Date End Date Leilani Tomas DO [address] [facility] [place] [address] PCP - General Family Medicine 05/01/22 documented as of this encounter
--- OUTSIDE RECORDS SUMMARY | 2023-09-30 13:24 | External Medical Summary | Summary of Care ---
Author Name Unknown Organization [facility] Address [address] [place] [address] Phone [phone] Care Team Providers Care Cloth Shearer Name Role Phone Leilani Tomas DO Primary Care Provider [phone] Reason for Visit * Reason Onset Date Comments Advice 05/15/2023 Encounter Details Date Type Department Care Team Description 05/15/2023 Telephone Family Practice [place] [address] [place] [address] Leilani Tomas DO [address] [facility] [place] [address] Advice Allergies No known active allergiesdocumented as of this encounter (statuses as of 05/17/2023) Medications Medication Sig Dispensed Refills Start Date [...] as of this encounter (statuses as of 05/17/2023) Active Problems Problem Noted Date Supraventricular tachycardia 03/07/2023 Dementia of the Alzheimer's type, with l ate onset, uncomplicated 11/21/2021 Other atherosclerosis of [place] arteries of extremities, bilateral legs 11/21/2021 BPH [...] as of this encounter (statuses as of 05/17/2023) Resolved Problems Problem Noted Date Resolved Date [...] as of this encounter (statuses as of 05/17/2023) Immunizations Name Administration Dates Next Due COVID-19 [...] Encounter - Leilani Tomas DO - 05/17/2023 12:03 PM EDT Spoke with . * Telephone Encounter - DARRYL Nova - 05/15/2023 11:01 AM EDT Spouse stating Leilani Tomas was to call today 05/15/23 to discuss hematology concerns Stated Dr. Tomas would be calling family on 05/15/23 and they would like a call back before 1PM to have discussion as they have another appointment to go to at 2PM documented in this encounter Plan of Treatment Upcoming Encounters Date Type Specialty Care Team Description 07/10/2023 Office Visit Neurology Romina Peña PA-C [address] [facility] [place] [address] 08/01/2023 Office Visit Family Medicine Leilani Tomas DO [address] [place] [address] 08/15/2023 Laboratory Laboratory [place] [address] [place] [address] Health Maintenance Due Date Last Done Comments [...] Documents on File Type Date Recorded Patient Enrober Tender Expl anation POLST 04/21/2023 [place] DERS [...] the patient have Health Care Power of Communications Intern? No Care Teams Cloth Shearer Relationship Specialty Start Date End Date Leilani Tomas DO [address] [facility] [place] [address] PCP - General Family Medicine 05/01/22 documented as of this encounter
--- OUTSIDE RECORDS SUMMARY | 2023-09-30 13:24 | External Medical Summary | Summary of Care ---
Author Name Unknown Organization [facility] Address [address] [place] [address] Phone [phone] Care Team Providers Care User Interface Developer Name Role Phone Leilani Tomas DO Primary Care Provider [phone] Reason for Visit * Reason Onset Date Comments Order Request 05/16/2023 Shower Bench. Encounter Details Date Type Department Care Team Description 05/16/2023 Telephone Family Practice [place] [address] [place] [place] [address] Leilani Tomas DO [address] [facility] [place] [id number] Order Request (Shower Bench. ) Allergies No [...] ate onset, uncomplicated 11/21/2021 Other atherosclerosis of [place] arteries of extremities, bilateral legs 11/21/2021 BPH [...] - 05/16/2023 2:32 PM EDT Grace from [facility] calling regarding order she received for shower bench. States patient will haveto be re seen as office visit notes did not state any need for tub transfer bench. Pt can be seen in office or telemed. [facility] will need a new order and new office visit notes. Phone number - [phone] documented in this encounter Plan of Treatment Upcoming Encounters Date Type Specialty Care Team Description 07/10/2023 Office Visit Neurology Romina Peña PA-C [address] [place] [address] 08/01/2023 Office Visit Family Medicine Leilani Tomas DO [address] [facility] [place] [address] 08/15/2023 Laboratory Laboratory [place] [address] [facility] [place] [address] Health Maintenance Due Date Last Done Comments [...] Documents on File Type Date Recorded Patient Clerk Typist Expl anation POLST 04/21/2023 [place] DERS [...] the patient have Health Care Power of Side Stitching Machine Operator? No Care Teams User Interface Developer Relationship Specialty Start Date End Date Leilani Tomas DO [address] [facility] [place] [address] PCP - General Family Medicine 05/01/22 documented as of this encounter
--- OUTSIDE RECORDS SUMMARY | 2023-09-30 13:24 | External Medical Summary | Summary of Care ---
Author Name Unknown Organization [facility] Address [address] [place] [address] Phone [phone] Care Team Providers Care Housekeeping Coordinator Name Role Phone Leilani Tomas DO Primary Care Provider [phone] Reason for Visit * Reason Onset Date Comments Order Request 05/16/2023 Shower Bench. Encounter Details Date Type Department Care Team Description 05/16/2023 Telephone Family Practice [place] [address] [place] [address] Leilani Tomas DO [address] [facility] [place] [id number] Order Request (Shower Bench. ) Allergies No [...] ate onset, uncomplicated 11/21/2021 Other atherosclerosis of [place] arteries of extremities, bilateral legs 11/21/2021 BPH [...] mRNA, LNP-s, No Pre serve, 2-Dose Series ([employer] 07/14/2021,10/24/2020,10/03/2020 Diptheria/Tetanus (Adult) 06/22/2006 Pneumococcal Conjugate Vacc, [...] - 05/16/2023 2:32 PM EDT Grace from [facility] calling regarding order she received for shower bench. States patient will haveto be re seen as office visit notes did not state any need for tub transfer bench. Pt can be seen in office or telemed. [facility] will need a new order and new office visit notes. Phone number - [phone] documented in this encounter Plan of Treatment Upcoming Encounters Date Type Specialty Care Team Description 07/10/2023 Office Visit Neurology Romina Peña PA-C [address] [place] [address] 08/01/2023 Office Visit Family Medicine Leilani Tomas DO [address] [facility] [place] [address] 08/15/2023 Laboratory Laboratory [place] [facility] [place] [address] Health Maintenance Due Date Last Done Comments [...] Documents on File Type Date Recorded Patient Roll On Worker Expl anation POLST 04/21/2023 [place] DERS [...] the patient have Health Care Power of Online Content Developer? No Care Teams Housekeeping Coordinator Relationship Specialty Start Date End Date Leilani Tomas DO [address] [facility] [place] [address] PCP - General Family Medicine 05/01/22 documented as of this encounter
--- OUTSIDE RECORDS SUMMARY | 2023-09-30 13:24 | External Medical Summary | Summary of Care ---
Author Name Unknown Organization [facility] Address [address] [place] [address] Phone [phone] Care Team Providers Care Operator Helper Name Role Phone Leilani Tomas DO Primary Care Provider +1 [phone] Reason for Visit * Reason Onset Date Comments Order Request 05/16/2023 Shower Bench. FYI 05/16/2023 FYI Encounter Details Date Type Department Care Team Description 05/16/2023 Telephone Family Practice [place] [address] [place] [address] Leilani Tomas DO [address] [place] [address] Order Request (Shower Bench. ); FYI (I) Allergies No known active allergiesdocumented as of this encounter (statuses as of 06/15/2023) Medications Medication Sig Dispensed Refills Start Date [...] as of this encounter (statuses as of 06/15/2023) Active Problems Problem Noted Date Supraventricular tachycardia [...] as of this encounter (statuses as of 06/15/2023) Resolved Problems Problem Noted Date Resolved Date [...] as of this encounter (statuses as of 06/15/2023) Immunizations Name Administration Dates Next Due COVID-19 [...] - 05/16/2023 2:32 PM EDT Grace from [facility] calling regarding order she received for shower bench. States patient will haveto be re seen as office visit notes did not state any need for tub transfer bench. Pt can be seen in office or telemed. [facility] will need a new order and new office visit notes. Phone number - [phone] documented in this encounter Plan of Treatment Upcoming Encounters Date Type Specialty Care Team Description 08/01/2023 Office Visit Family Medicine Leilani Tomas DO [address] [facility] [place] [address] Health Maintenance Due Date Last Done Comments [...] Documents on File Type Date Recorded Patient Data Typist Expl anation POLST 04/21/2023 [place] [...] the patient have Health Care Power of Grain Loader? No Care Teams Operator Helper Relationship Specialty Start Date End Date Leilani Tomas DO [address] [facility] [place] [address] PCP - General Family Medicine 05/01/22 documented as of this encounter
--- OUTSIDE RECORDS SUMMARY | 2023-09-30 13:25 | External Medical Summary ---
Author Name Unknown Address Unknown Organization [id number]:LAB[facility]ATORY [facility] [place] - [address] [place] [address] Laboratory Report Ordering Provider Test Date Status FLAQUITO FLAHERTY 04/30/2023 09:37:24 Final Observation Date Value Abnormality Reference (Units ) Status Iron 04/30/2023 09:37:24 77 45-176 (ug /dL) Final Iron-binding capacity 04/30/2023 09:37:24 267 250-425 (ug/dL) Final Transferrin Sat % 04/30/2023 09:37:24 29 15 -55 (%) Final Performing Location [facility] [place] [address] [facility] [address]
--- OUTSIDE RECORDS SUMMARY | 2023-09-30 13:25 | External Medical Summary ---
Author Name Unknown Address Unknown Organization [id number]:[facility] [place] - [address] [facility] [place] [address] Laboratory Report Ordering Provider Test Date Status FLAQUITO FLAHERTY 04/30/2023 09:37:24 Final Observation Date Value Abnormality Reference (Units ) Status SYNC LEUKOCYTES IN BLOOD BY AUTOMATED COUNT 04/30/2023 09:37:24 4.07 4.00-10.80 (K/uL) Final Segs 04/30/2023 09:37:24 61.7 40.0-75.0 (%) Final Lymphs % 04/30/2023 09:37:24 29.0 18.0-42.0 (%) Final Monos 04/30/2023 09:37:24 6.4 1.0-11.0 (%) Final Eosinophils 04/30/2023 09:37:24 1.7 0.0-6.0 (%) Final Basos 04/30/2023 09:37:24 1.0 0.0-2.0 (%) Final Immature Granulocyte, Percent 04/30/2023 09:37:24 0.2 0.0-2.0 (%) Final Absolute Segs 04/30/2023 09:37:24 2.51 1.80-7.70 (K/uL) Final Lymphs, absolute 04/30/2023 09:37:24 1.18 1.00-4.80 (K/ul) Final Monos, Abs 04/30/2023 09:37:24 0.26 0.00-1.10 (K/uL) Final Eos, Abs 04/30/2023 09:37:24 0.07 0.00-0.70 (K/uL) Final Basos, Abs 04/30/2023 09:37:24 0.04 0.00-0.20 (K/uL) Final Immature Granulocytes, Number 04/30/2023 09:37:24 0.01 0.00-0.20 (K/uL) Final Performing Location [facility]ORY [facility] [place] - [address] [facility] [address]
--- OUTSIDE RECORDS SUMMARY | 2023-09-30 13:25 | External Medical Summary ---
Author Name Unknown Address Unknown Organization [id number]:[facility] [place] [address] [place] [facility] [place] [address] Laboratory Report Ordering Provider Test Date Status FLAQUITO FLAHERTY 04/30/2023 09:37:24 Final Observation Date Value Abnormality Reference (Units ) Status BUN 04/30/2023 09:37:24 16 6-20 (mg/dL) Final Creatinine 04/30/2023 09:37:24 0.8 0.6-1.2 (mg/dL) Final Glomerular filtration rate/1.73 sq M.predicted [Volume Rate/Area] in Serum, Plasma or Blood by Creatinine-based formula (CKD-EPI) 04/30/2023 09:37:24 88 >=60 (mL/min) Final eGFR is calculated based on the CKD-EPI 2020 equation SODIUM 04/30/2023 09:37:24 143 135-146 (m mol/L) Final Potassium 04/30/2023 09:37:24 4.0 3.5-5.1 (m mol/L) Final Cl 04/30/2023 09:37:24 104 98-107 (mm ol/L) Final CO2 04/30/2023 09:37:24 26 22-32 (mmo l/L) Final Anion gap 04/30/2023 09:37:24 13 7-15 (mmol /L) Final Glucose 04/30/2023 09:37:24 81 70-120 (mg /dL) Final Albumin 04/30/2023 09:37:24 4.4 3.8-5.0 (g /dL) Final AST (Aspartate aminotransferase) 04/30/2023 09:37:24 33 10-50 (U/L) Final Alk Phos 04/30/2023 09:37:24 84 35-130 (U/ L) Final Bilirubin, Total 04/30/2023 09:37:24 0.4 <=1 .2 (mg/dL) Final Calcium 04/30/2023 09:37:24 9.5 8.4-10.2 ( mg/dL) Final Protein 04/30/2023 09:37:24 6.5 6.0-8.3 (g /dL) Final ALT (Alanine aminotransferase) 04/30/2023 09:37:24 34 10-50 (U/L) Final Performing Location [facility] [place] [address] [facility] [address]
--- OUTSIDE RECORDS SUMMARY | 2023-09-30 13:25 | External Medical Summary | Summary of Care ---
Author Name Unknown Organization [facility] Address [address] [place] [address] Phone [phone] Care Team Providers Care Trail Construction Worker Name Role Phone Leilani Tomas Prasannajanak Primary Care Provider [phone] [phone] Encounter Details Date Type Department Care Team Description 04/15/2023 Result Scan Unspecified Department <No scans attached> Allergies No known active allergiesdocumented as of this encounter (statuses as of 04/16/2023) Medications Medication Sig Dispensed Refills Start Date End Date Status GLUCOSAMINE CHONDROITIN COMPLX PO CAPS 1 daily 0 Active CENTRUM PO TABS 1 daily 0 Active lisinopril (PRINIVIL) 20 MG TabletIndications:Hy pertension goal BP (blood pressure) < 140/90 Take 1 Tab by mouth 2 times a day. 180 Tab 3 10/25/2016 Active Levothyroxine Sodium 50 MCG Oral Tablet (Levoxyl)Indications :Subclinical hypothyroidism TAKE 1 TABLET BY MOUTH ONCE DAILY at least 30 minutes prior to breakfast or other meds. 90 Tablet 3 06/12/2022 Active amLODIPine Besylate 10 MG Oral Tablet (Norvasc)Indications :Essential hypertension with goal blood pressure less than 140/90 TAKE 1 TABLET BY MOUTH ONCE DAILY 90 Tablet 1 11/08/2022 Active Additional Information Patient taking differently: 5 mg Oral Daily(AM), Reported on 03/07/2023 Memantine HCl 5 MG Oral Tablet (Namenda)Indications [...] AT BEDTIME 90 Tablet 2 02/26/2023 Active Docusate Sodium 100 MG Oral Capsule (Colace) Take 1 Capsule by mouth in the morning. 0 Active documented as of this encounter (statuses as of 04/16/2023) Active Problems Problem Noted Date Supraventricular tachycardia 03/07/2023 Dementia of the Alzheimer's type, with l ate onset, uncomplicated 11/21/2021 Other atherosclerosis of [place] arteries of extremities, bilateral legs 11/21/2021 BPH [...] as of this encounter (statuses as of 04/16/2023) Resolved Problems Problem Noted Date Resolved Date [...] as of this encounter (statuses as of 04/16/2023) Immunizations Name Administration Dates Next Due COVID-19 mRNA, LNP-s, No Pre serve, 2-Dose Series ([employer]) 07/14/2021,10/24/2020,10/03/2020 Diptheria/Tetanus (Adult) 06/22/2006 Pneumococcal Conjugate Vacc, 13 Valent (Prevnar) 11/19/2015 Pneumococcal Polysaccharide PPV23 (Pneumovax) 07/23/2017,03/18/2007 Seasonal Influenza, Quadriva lent Hd (Fluzone Hd) 07/03/2022,05/13/2021 Seasonal Influenza, Quadriva lent, No Preserve, Adjuvanted, 65+ Yrs, IM 05/19/2020 Seasonal Influenza, Split, I IV3, With Preserve, [...] Description 05/09/2023 Office Visit Family [facility] [address] [facility] [address] 07/10/2023 Office Visit Neurology Romina Peña PA-C [address] [facility] [place] [address] 01/02/2024 Office Visit Urology Alexx Mejía Jr., MD [address] [place] [address] Health Maintenance Due Date Last Done Comments COVID-19 Vaccine (4 - Pfizer series) 09/08/2021 07/14/2021, 10/24/2020, 10/03/2020 Depression Screening, Annual for Pts 12 and Over 04/06/2023 04/06/2022, 04/03/2016 Influenza Vaccine (FLU shot) (#1) 2023 07/03/2022, 05/13/2021, 05/19/2020, Additional history exists TSH 09/19/2023 09/19/2022, 03/03/2022, 04/25/2021, Additional history exists DTaP,Tdap,and Td Vaccines (2 [...] Not on filedocumented as of this encounter Procedures Procedure Name Priority Date/Time Associated Diagnosis Comments RADIOLOGY SCANNED RESULT 04/15/2023 documented in this encounter Results * RADIOLOGY SCANNED RESULT (04/15/2023) 04/15/2023 No Physician Data Unknown DIAGNOSTIC RAD IOLOGY SERVICES documented in this encounter Advance Directives Latest Code Status on File Code Status Date Activated Date Inactivated Comments Full Code 01/12/2020 2:21 PM 01/12/2020 8:38 PM This or luis antonio reflects the patients wishes and were consensually agreed upon. Question Answer Comments Discussion of Advance Directives occurred with: Not Discussed Does the patient have a Living Will? No Does the patient have Health Care Power of Beck Tender? No Care Teams Trail Construction Worker Relationship Specialty Start Date End Date Leilani Tomas DO [address] [facility] [place] [address] PCP - General Family Medicine 05/01/22 documented as of this encounter
--- OUTSIDE RECORDS SUMMARY | 2023-09-30 13:25 | External Medical Summary | Summary of Care ---
Author Name Unknown Organization [facility] Address [address] [place] [address] Phone [phone] Care Team Providers Care Tanner Rotary Drum Continuous Process Name Role Phone Leilani Tomas DO Primary Care Provider [phone] [phone] Encounter Details Date Type Department Care Team Description 04/17/[address] [facility] [address] [facility] [address] [facility] [place] [address] Leilani Tomas DO [address] [place] [address] Allergies No known active allergiesdocumented as of this encounter (statuses as of 04/17/2023) Medications Medication Sig Dispensed Refills Start Date [...] as of this encounter (statuses as of 04/17/2023) Active Problems Problem Noted Date Supraventricular tachycardia 03/07/2023 Dementia of the Alzheimer's type, with l ate onset, uncomplicated 11/21/2021 Other atherosclerosis of [place] arteries of extremities, bilateral legs 11/21/2021 BPH [...] as of this encounter (statuses as of 04/17/2023) Resolved Problems Problem Noted Date Resolved Date [...] as of this encounter (statuses as of 04/17/2023) Immunizations Name Administration Dates Next Due COVID-19 [...] 05/09/2023 Office Visit Family Medicine Leilani Tomas, [facility] [facility] [place] [address] 07/10/2023 Office Visit [facility] [address] [facility] [address] 01/02/2024 Office Visit Urology Alfonzo Mcfarland, Alexx Cervantes MD [address] [facility] [address] [place] [address] Health Maintenance Due Date Last Done Comments COVID-19 Vaccine (4 - Pfizer series) 09/08/2021 07/14/2021, 10/24/2020, 10/03/2020 Depression Screening, Annual for Pts 12 and Over 04/06/2023 04/06/2022, 04/03/2016 Influenza Vaccine (FLU shot) (#1) 2023 07/03/2022, 05/13/2021, 05/19/2020, Additional history exists TSH 09/19/2023 09/19/2022, 03/2022, 04/25/2021, Additional history exists DTaP,Tdap,and Td Vaccines [...] Procedure Name Priority Date/Time Associated Diagnosis Comments XR CHEST 1 VIEW Routine 04/16/2023 documented in this encounter Results * XR CHEST 1 VIEW (04/16/2023) Anatomical Region Laterality Modality Chest Other 04/16/2023 Jamal Perez MD RADIOLOGY (RAD GENE RAL) documented in this encounter Advance Directives Latest [...] the patient have Health Care Power of Radio Television Technical Director? No Care Teams Tanner Rotary Drum Continuous Process Relationship Specialty Start Date End Date Leilani Tomas DO [address] [facility] [place] [address] PCP - General Family Medicine 05/01/22 documented as of this encounter
--- OUTSIDE RECORDS SUMMARY | 2023-09-30 13:25 | External Medical Summary ---
Author Name Unknown Address Unknown Organization K01:LAB[facility]ATORY [facility] [place] - [address] [place] [address] Laboratory Report Ordering Provider Test Date Status FLAQUITO FLAHERTY 04/30/2023 09:37:24 Final Observation Date Value Abnormality Reference (Units ) Status Ferritin 04/30/2023 09:37:24 258 30-400 (ng /mL) Final Performing Location LABORATORY [facility] - [address] [place] [address]
--- OUTSIDE RECORDS SUMMARY | 2023-09-30 13:25 | External Medical Summary | Summary of Care ---
Author Name Unknown Organization [facility] Address [address] [place] [address] Phone [phone] Care Team Providers Care Oil Exploration Engineer Name Role Phone Leilani Tomas DO Primary Care Provider [phone] [phone] Reason for Visit * Reason Comments Emergency Department Follow-Up Was seen at [facility] ER for a fall and had 8 emily placed to his head. He was admitted on 04/15 and discharged on 04/16. He was advised to have emily removed in 3 wks. They have a family friend that advised that the emily were ready to be removed. Encounter Details Date Type Department Care Team Description 04/24/2023 Office Visit [facility] [place] [address] [place] [address] Leilani Tomas DO [address] [place] [address] Encounter for removal of sutures* Allergies No known active allergiesdocumented as of this encounter (statuses as of 04/24/2023) Medications Medication Sig Dispensed Refills Start Date [...] Active amLODIPine Besylate 10 MG Oral Tablet (Norvasc)Indication s:Essential hypertension with goal blood pressure less than 140/90 TAKE 1 TABLET BY MOUTH ONCE DAILY 90 Tablet 1 11/08/2022 Active Additional Information Patient taking differently: 5 mg Oral Daily(AM), Reported on 03/07/2023 Memantine HCl 5 MG Oral Tablet (Namenda)Indication [...] by mouth in the morning. 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 01/10/2011 05/21/2012 OVERWEIGHT 09/29/2010 10/17/2011 EPISODE [...] as of this encounter (statuses as of 04/24/2023) Immunizations Name Administration Dates Next Due COVID-19 [...] Sign Reading Time Taken Comments Blood Pressure 122/58 04/24/2023 10:20 AM EDT Pulse 78 04/24/2023 10:20 AM EDT Temperature 36.7 C (98.1 F) 04/24/2023 10:20 AM E DT Respiratory Rate 20 04/24/2023 10:20 AM EDT Oxygen Saturation 97% 04/24/2023 10:20 AM EDT Inhaled Oxygen Concentration - - Weight 55.2 kg (121 lb 9.6 oz) 04/24/2023 10:20 AM EDT Height 156.2 cm (5' 1.5") 04/24/2023 10:20 AM ED T Body Mass Index 22.6 04/24/2023 10:20 AM EDT documented in this encounter Progress Notes * Leilani Tomas DO - 04/24/2023 10:50 AM EDT Patient stop in the office for suture removal. He had 8 sutures placed after a fall. He has a hospital follow-up scheduled on Sunday. Hospice referral has been placed. He is a cardiology appointment pending. Blood pressure is stable. Eight sutures removed and patient tolerated procedure. documented in this encounter Nursing Notes * Funmilayo Orlando LPN - 04/24/2023 10:20 AM EDT Chief Complaint Patient presents with Emergency Department Follow-Up Was seen at [facility] ER for a fall and had 8 emily placed to his head. He was admitted on 04/15 and discharged on 04/16. He was advised to have emily removed in 3 wks. They have a family friend that advised that the emily were ready to be removed. documented in this encounter Plan of Treatment Upcoming Encounters Date Type Specialty Care Team Description 04/30/2023 Office Visit Family Leilani Ha DO [address] [place] [address] 05/09/2023 Office Visit [facility] [address] [facility] [address] 07/10/2023 Office Visit Neurology Romina Peña PA-C [address] [facility] [place] [address] 01/02/2024 Office Visit Urology Alexx Mejía Jr., MD [address] [facility] [address] [place] [address] Scheduled Orders Name Type Priority Associated Diagnoses Orde r Schedule SUTURE REMOVAL-BY OTHER PROVIDER Procedures Routine Encounter for removal of sutures Ordered: 04/24/2023 Health Maintenance Due Date Last Done Comments [...] as of this encounter Visit Diagnoses Diagnosis Encounter for removal of sutures- Primary documented in this encounter Advance Directives Latest [...] the patient have Health Care Power of Legal Specialist? No Care Teams Oil Exploration Engineer Relationship Specialty Start Date End Date Leilani Tomas DO [address] [facility] [place] [address] PCP - General Family Medicine 05/01/22 documented as of this encounter
--- OUTSIDE RECORDS SUMMARY | 2023-09-30 13:25 | External Medical Summary | Summary of Care ---
Author Name Unknown Organization [facility] Address [address] [place] [address] Phone [phone] Care Team Providers Care Clinic Mgr Name Role Phone Leilani Tomas DO Primary Care Provider [phone] [phone] Encounter Details Date Type Department Care Team Description 05/01/2023 Abstract Family Practice [place] [address] [place] [address] Leilani Tomas DO [address] [facility] [place] [address] Allergies No known active allergiesdocumented as of this encounter (statuses as of 05/01/2023) Medications Medication Sig Dispensed Refills Start Date [...] as of this encounter (statuses as of 05/01/2023) Active Problems Problem Noted Date Supraventricular tachycardia 03/07/2023 Dementia of the Alzheimer's type, with l ate onset, uncomplicated 11/21/2021 Other atherosclerosis of [place] arteries of extremities, bilateral legs 11/21/2021 BPH [...] as of this encounter (statuses as of 05/01/2023) Resolved Problems Problem Noted Date Resolved Date [...] as of this encounter (statuses as of 05/01/2023) Immunizations Name Administration Dates Next Due COVID-19 [...] Office Visit Family Medicine Leilani Tomas DO [address] [facility] [place] [address] 07/10/2023 Office Visit Neurology Romina Peña PA-C [address] [facility] [place] [address] Health Maintenance Due Date Last Done Comments [...] Documents on File Type Date Recorded Patient Wafer Abrading Machine Tender Expl anation POLST 04/21/2023 [place] [...] the patient have Health Care Power of Lamina Searcher? No Care Teams Clinic Mgr Relationship Specialty Start Date End Date Leilani Tomas DO [address] [facility] [place] [address] PCP - General Family Medicine 05/01/22 documented as of this encounter
--- OUTSIDE RECORDS SUMMARY | 2023-09-30 13:25 | External Medical Summary ---
Author Name Unknown Address Unknown Organization K01:[facility] [place] [address] [place] [address] Laboratory Report Ordering Provider Test Date Status FLAQUITO FLAHERTY 04/30/2023 09:37:24 Final Observation Date Value Abnormality Reference (Units ) Status Triglyceride 04/30/2023 09:37:24 62 <=174 ( mg/dL) Final Triglyceride Reference Range s (mg/dL):
<150 Acceptable
150-174 Borderline high
175-499 High
>=500 Very high Cholesterol 04/30/2023 09:37:24 133 <200 (mg /dL) Final Total Cholesterol Reference Ranges (mg/dL):
<200 Desirable
200-239 Borderline high
>=240 High HDL 04/30/2023 09:37:24 68 >39 (mg/dL ) Final HDL Cholesterol Reference Ra nges (mg/dL):
>=60 High (Desirable)
<50 Low (Undesirable) For Females
<40 Low (Undesirable) For Males NON-HDL CHOLESTEROL 04/30/2023 09:37:24 65 <=159 (mg/dL) Final Non-HDL Cholesterol Referenc e Range (mg/dL):
<100 Target level for high risk ASCVD patient
<130 Optimal for general population
130-159 Near optimal for general population
160-189 Borderline High
190-219 High
>=220 Very High LDL, (calculated) 04/30/2023 09:37:24 53 <= 129 (mg/dL) Final LDL Cholesterol Reference Ra nges (mg/dL):
<70 Target level for high risk ASCVD patient
<100 Optimal for general population
100-129 Near optimal for general population
130-159 Borderline high
160-189 High
>=190 Very high Performing Location LAB[facility] [place] [address] [place] [address]
--- OUTSIDE RECORDS SUMMARY | 2023-09-30 13:25 | External Medical Summary | Summary of Care ---
Author Name Unknown Organization [facility] Address [address] [place] [address] Phone [phone] Care Team Providers Care Stitchdown Toe Former Name Role Phone Leilani Tomas DO Primary Care Provider [phone] [phone] Encounter Details Date Type Department Care Team Description 05/01/2023 Telephone Family Practice [place] [address] [place] [address] Leilani Tomas DO [address] [facility] [place] [address] Allergies No known active allergiesdocumented as [...] mouth in the morning. 0 04/30/2023 Active documented as of this encounter (statuses as of 05/01/2023) Active Problems Problem Noted Date Supraventricular tachycardia 03/07/2023 Dementia of the Alzheimer's type, with l ate onset, uncomplicated 11/21/2021 Other atherosclerosis of [place] arteries of extremities, bilateral legs 11/21/2021 BPH [...] mRNA, LNP-s, No Pre serve, 2-Dose Series ([employer]) 07/14/2021,10/24/2020,10/03/2020 Diptheria/Tetanus (Adult) 06/22/2006 Pneumococcal Conjugate Vacc, [...] Telephone Encounter - Leilani Tomas DO - 05/01/2023 8:43 AM EDT Blood work reviewed. Mild anemia, but overall stable. Will continue to monitor. documented in this encounter Plan of Treatment Upcoming Encounters Date Type Specialty Care Team Description 05/09/2023 Office Visit Family Medicine Leilani Tomas DO [address] [facility] [place] [address] 07/10/2023 Office Visit Neurology Romina Peña PA-C [address] [place] [address] Health Maintenance Due Date Last Done Comments [...] filedocumented as of this encounter Advance Directives Latest Code Status [...] the patient have Health Care Power of Traffic Lieutenant? No Care Teams Stitchdown Toe Former Relationship Specialty Start Date End Date Leilani Tomas DO [address] [facility] [place] [address] PCP - General Family Medicine 05/01/22 documented as of this encounter
--- OUTSIDE RECORDS SUMMARY | 2023-09-30 13:25 | External Medical Summary | Summary of Care ---
Author Name Unknown Organization [facility] Address [address] [place] [address] Phone [phone] Care Team Providers Care Technician Terminal And Repeater Name Role Phone Leilani Tomas DO Primary Care Provider [phone] [phone] Encounter Details Date Type Department Care Team Description 04/18/2023 [facility] [place] [address] Leilani Tomas DO [address] [place] [address] Allergies No known active allergiesdocumented as of this encounter (statuses as of 04/18/2023) Medications Medication Sig Dispensed Refills Start Date [...] as of this encounter (statuses as of 04/18/2023) Active Problems Problem Noted Date Supraventricular tachycardia 03/07/2023 Dementia of the Alzheimer's type, with l ate onset, uncomplicated 11/21/2021 Other atherosclerosis of w[place] arteries of extremities, bilateral legs 11/21/2021 BPH [...] as of this encounter (statuses as of 04/18/2023) Resolved Problems Problem Noted Date Resolved Date [...] as of this encounter (statuses as of 04/18/2023) Immunizations Name Administration Dates Next Due COVID-19 [...] 05/09/2023 Office Visit Family Medicine Leilani Tomas, [facility] [place] [address] 07/10/2023 Office Visit [facility]rology [facility] [address] 01/02/2024 Office Visit Urology Alfonzo Mcfarland, Alexx Cervantes MD 27 [facility] [address] [place] [address] Health [...] the patient have Health Care Power of District Court Justice? No Care Teams Technician Terminal And Repeater Relationship Specialty Start Date End Date Leilani Tomas DO [address] [facility] [place] [id number] PCP - General Family Medicine 05/01/22 documented as of this encounter
--- OUTSIDE RECORDS SUMMARY | 2023-09-30 13:25 | External Medical Summary ---
Author Name Unknown Address Unknown Organization [id number]:[facility] [place] [address] [place] [address] Laboratory Report Ordering Provider Test Date Status FLAQUITO FLAHERTY 04/30/2023 09:37:24 Final Observation Date Value Abnormality Reference (Units ) Status TSH 04/30/2023 09:37:24 1.66 0.27-4.20 (uIU/mL) Final Performing Location [facility] [place] [address] [place] [address]
--- OUTSIDE RECORDS SUMMARY | 2023-09-30 13:25 | External Medical Summary | Summary of Care ---
Author Name Unknown Organization [facility] Address [address] [place] [address] Phone [phone] Care Team Providers Care Video Coordinator Name Role Phone Leilani Tomas DO Primary Care Provider [phone] [phone] Encounter Details Date Type Department Care Team Description 05/01/2023 Telephone Family Practice [place] [address] [place] [address] Leilani Tomas DO [address] [facility] [place] [address] Allergies No known active allergiesdocumented as [...] ate onset, uncomplicated 11/21/2021 Other atherosclerosis of [place] arteries of extremities, bilateral legs 11/21/2021 BPH [...] mRNA, LNP-s, No Pre serve, 2-Dose Series (Affresol) 07/14/2021,10/24/2020,10/03/2020 Diptheria/Tetanus (Adult) 06/22/2006 Pneumococcal Conjugate Vacc, [...] encounter Miscellaneous Notes * Telephone Encounter - Maral Valderrama LPN - 05/01/2023 10:59 AM EDT Pt brought in med list from hospital. Half tab of Metoprolol 25mg listed, reports she held it today until it was clarified. Spoke with Dr Taylor's office. Pt had been advised to hold med at hospital after syncopal episode in February, when they had followed up with Dr Taylor in March they had started him on a half tab . Dr King aware of recent episode and positive stress test and will be following up with pt at their upcoming appt. Will update . [place] Tomas * Telephone Encounter - Marianne Acevedo LPN - 05/01/2023 10:28 AM EDT Pts aware, she stopped into the office today * Telephone Encounter - Leilani Tomas DO - 05/01/2023 8:43 AM EDT Blood work reviewed. Mild anemia, but overall stable. Will continue to monitor. 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 No Care Teams Video Coordinator Relationship Specialty Start Date End Date Leilani Tomas DO [address] [facility] [place] [address] PCP - General Family Medicine 05/01/22 documented as of this encounter
--- OUTSIDE RECORDS SUMMARY | 2023-09-30 13:25 | External Medical Summary | Summary of Care ---
Author Name Unknown Organization [facility] Address [address] [place] [address] Phone [phone] Care Team Providers Care Casino Attendant Name Role Phone Leilani Tomas DO Primary Care Provider [phone] Reason for Visit * Reason Onset Date Comments Referral 04/30/2023 Home Health Encounter Details Date Type Department Care Team Description 04/30/2023 Telephone Family Practice [place] [address] [place] [address] Leilani Tomas DO [address] [facility] [place] [address] Referral (Home Health) Allergies No known active [...] ate onset, uncomplicated 11/21/2021 Other atherosclerosis of [place] arteries of extremities, bilateral legs 11/21/2021 BPH [...] mRNA, LNP-s, No Pre serve, 2-Dose Series (Atreaon) 07/14/2021,10/24/2020,10/03/2020 Diptheria/Tetanus (Adult) 06/22/2006 Pneumococcal Conjugate Vacc, [...] Miscellaneous Notes * Telephone Encounter - DARRYL Domingo - 05/03/2023 8:24 AM EDT [facility]ice contacted the office today to inform Dr Tomas that patient and family are declining hospice at this moment. [facility] stated they will follow up with patient and patients family in a month to see if their decision has changed. * Telephone Encounter - DARRYL Mei - 04/30/2023 1:45 PM EDT Pts sts she is unaware of this referral and will need to know if the insurance will cover this. documented in this encounter Plan of Treatment Upcoming Encounters Date Type Specialty Care Team Description 05/09/2023 Office Visit Family Medicine Leilani Tomas DO [address] [facility] [place] [address] 07/10/2023 Office Visit Neurology Romina [facility]-C [facility] [address] Health Maintenance Due Date Last Done Comments [...] Documents on File Type Date Recorded Patient Photographic Process Attendant Expl anation POLST 04/21/2023 [place] D[place] [...] the patient have Health Care Power of Machine Sander? No Care Teams Casino Attendant Relationship Specialty Start Date End Date Leilani Tomas DO [address] [facility] [place] [address] PCP - General Family Medicine 05/01/22 documented as of this encounter
--- OUTSIDE RECORDS SUMMARY | 2023-09-30 13:25 | External Medical Summary | Summary of Care ---
Author Name Unknown Organization [facility] Address [address] [place] [address] Phone [phone] Care Team Providers Care Laundry Operator Finishing Name Role Phone Leilani Tomas DO Primary Care Provider [phone] Reason for Referral * Evaluate & Treat - Unlimited Visits (Within 10 days (routine)) - Authorized Specialty Diagnoses / Procedures Referred By Daisy flores Referred To Contact HOME CARE / Home Care Diagnoses Hospital discharge follow-up Leilani Tomas DO [address] [facility] [place] [address] Referral ID Status Reason Start Date Expiration Date Visits Requested Visits Authorized [id number] Authorized Specialty Services Required 04/30/2023 999 999 Question Answer Referral Priority Within 10 days (routine) Comments Documentation of [id number]-[id number] Encounter Addendum Patient Name: Александр Booker I certify that this patient is under my care and that I, or a nurse practitioner or physician's pharmacy affairs assistant working with me, had a [id number] encounter that meets the physician peqk-di-bzcp encounter requirements with this patient on: see note The encounter with the patient was in whole, or in part, for the following medical condition, which is the primary reason for home health care (List medical condition): Medication management I certify that, based on my findings, the following services are medically necessary home health services: Nursing To provide the following care/treatments: (All hospitalists [...] effort and are for medical reasons or jew services or infrequently or of short duration when for other reason) because: See note see note Physician Signature: Date of Signature: Physician Printed Name: Leilani Tomas DO Reason for Visit * Reason Comments Hospital Follow-Up [facility] [place] 04/15-04/16 post fall/syncopal episode, doing okay, no drainage from head wound. Polst form completed. Will be following up with Dr Taylor 05/29 on if they should do a heart catheterization. 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); Subclinical hypothyroidism; Essential hypertension with goal blood pressure less than 140/90; Cerebrovascular disease; Internal hemorrhoid; Other atherosclerosis of [place] arteries of extremities, bilateral legs (HCC); MCI (mild cognitive impairment); Progressive vascular leukoencephalopathy (HCC); Dementia of the Alzheimer's type, with late onset, uncomplicated (HCC); History of PSVT (paroxysmal supraventricular tachycardia); OSTEOARTHRITIS S/P TOTAL KNEES, 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), LEFT (03/19); Sigmoid diverticulosis; BPH without obstruction/lower urinary tract symptoms; Supraventricular tachycardia (HCC) Allergies No known active allergiesdocumented as of this encounter (statuses as of 04/30/2023) Medications Medication Sig Dispensed Refills Start Date [...] mouth in the morning. 0 04/30/2023 Active amLODIPine Besylate 10 MG Oral Tablet (Norvasc)Indications :Essential hypertension with goal blood pressure less than 140/90 TAKE 1 TABLET BY MOUTH ONCE DAILY 90 Tablet 1 11/08/2022 3 Discontinue d(Refill) Docusate Sodium 100 MG Oral Capsule (Colace) Take 1 Capsule by mouth in the morning. 0 3 Discontinue d(End of Procedure) documented as of this encounter (statuses as of 04/30/2023) Active Problems Problem Noted Date Supraventricular tachycardia 03/07/2023 Dementia of the Alzheimer's type, with l ate onset, uncomplicated 11/21/2021 Other atherosclerosis of [place] arteries of extremities, bilateral legs 11/21/2021 BPH [...] as of this encounter (statuses as of 04/30/2023) Resolved Problems Problem Noted Date Resolved Date [...] as of this encounter (statuses as of 04/30/2023) Immunizations Name Administration Dates Next Due COVID-19 mRNA, LNP-s, No Pre serve, 2-Dose Series (LaComunity) 07/14/2021,10/24/2020,10/03/2020 Diptheria/Tetanus (Adult) 06/22/2006 Pneumococcal Conjugate Vacc, [...] Sign Reading Time Taken Comments Blood Pressure 128/52 04/30/2023 12:39 PM EDT Pulse 58 04/30/2023 12:39 PM EDT Temperature 36.8 C (98.3 F) 04/30/2023 1 2:39 PM EDT Respiratory Rate 18 04/30/2023 12:3 9 PM EDT Oxygen Saturation 98% 04/30/2023 12: 39 PM EDT Inhaled Oxygen Concentration - - Weight 54.8 kg (120 lb 12.8 oz) 023 12:39 PM EDT Height 156.2 cm (5' 1.5") 04/30/2023 12 :39 PM EDT Body Mass Index 22.46 04/30/2023 12:39 PM EDT documented in this encounter Progress Notes * Leilani Tomas, DO - 04/30/2023 12:56 PM EDT Subjective: Алексанрд Booker is a 88 year old male. Chief Complaint Patient presents with Hospital Follow-Up [place] 04/15-04/16 post fall/syncopal episode, doing okay, no drainage from head wound. Polst form completed. Will be following up with Dr Taylor 05/29 on if they should do a heart catheterization. HPI: Patient is a 88-year-old male who presents to the office for hospital discharge Patient was admitted on April 15 and discharged on April 16 for a syncopal event. He had fallenat his home very early in the morning. He was found on the floor after an unwitnessed fall. A neighbor helped get him into a chair. He was referred to the hospital. He is a poor historian. He saw hiscardiologist while he was in the hospital and a recent stress test performed demonstrated mild reversible defect involving the in the inferior lateral segments with an EF of 55%. While in the hospital they did not wish to perform a cardiac catheterization. He has a follow-up with his core paster May 29. His dementia is worsening. He is following with Neurology was last seen in December. He continues on Namenda and Aricept. He no longer drives and no longer uses the riding mower. He had a laceration to the back of his head and 8 emily were placed. These were removed without issue on April 24. Wound has been healing per the . He follows with Neurology was last seen in December 2022. Blood pressure and weight are stable today. There is a lot of confusion with his medications. Repeat blood work is pending. He denies any complaints today. PMH: Patient Active Problem List Diagnosis Code [...] uncomplicated (HCC) G30.1, F02.80 Other atherosclerosis of [place] arteries of extremities, bilateral legs (HCC) I70.293 [...] 1 Tablet by mouth in the morning. No current [...] by Alexx Mejía Jr., MD at OR [facility] Review of patient's allergies indicates: No [...] Endocrine: Negative. Genitourinary: Negative. Musculoskeletal: Negative. Skin: Positive for rash and wound. Allergic/Immunologic: Negative. Neurological: Negative. Hematological: Negative. Psychiatric/Behavioral: Negative. Objective: BP 128/52 | Pulse 58 | Temp 36.8 C (98.3 F) | Resp 18 | Ht 1.562 m (5' 1.5") | Wt 54.8 kg (120 lb 12.8 oz) | SpO2 98% | BMI 22.46 kg/m | BSA 1.54 m Physical Exam Vitals and nursing note [...] of motion. Cervical back: Neck supple. Skin: Comments: Scabbing to the back of the head. Neurological: Mental Status: He is alert and oriented to person, place, and time. Psychiatric: Behavior: Behavior normal. Thought Content: Thought content normal. Judgment: Judgment normal. 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 | For: Follow up as scheduled Plan Home Health Referral OP Stable 88 year old male. Need to get his medications controlled. Suspect he is taking home medications that were discontinued at the hospital? Will get medication reconciliation. Continue to follow up with specialists. Blood work pending. Follow up with Cardiology as scheduled. Follow Up: Return if symptoms worsen or fail to improve, for Follow up as scheduled. | For: Follow up as scheduled Leilani Tomas DO documented in this encounter Nursing Notes * Maral Valderrama LPN - 04/30/2023 12:40 PM EDT Chief Complaint Patient presents with Hospital Follow-Up [facility] [place] 04/15-04/16 post fall/syncopal episode, doing okay, no drainage from head wound. Polst form completed. Will be following up with Dr Taylor 05/29 on if they should do a heart catheterization. documented in this encounter Plan of Treatment Upcoming Encounters Date Type Specialty Care Team Description 05/09/2023 Office Visit Family Medicine Leilani Tomas DO [address] [facility] [place] [address] 07/10/2023 Office Visit Neurology Romina Peña PA-C 200 [place] [address] 01/02/2024 Office Visit Urology Alfonzo Mcfarland, Alexx Cervantes MD 27 [facility] [address] [place] [address] Scheduled Referrals Name Type Priority Associated Diagnoses Orde r Schedule HOME HEALTH REFERRAL OP Referral Within 10 days (routine) Hospital discharge follow-up Ordered: 04/30/2023 Health Maintenance Due Date Last Done Comments [...] as of this encounter Visit Diagnoses Diagnosis Hospital discharge follow-up- Primary Other follow-up examination 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) Other and unspecified hyperlipidemia Subclinical hypothyroidism Other specified acquired hypothyroidism Essential hypertension with goal blood pressure less than 140/90 Cerebrovascular disease Cerebrovascular disease, unspecified Internal hemorrhoid Internal hemorrhoids without mention of complication Other atherosclerosis of [place] arteries of extremities, bilateral legs (HCC) MCI (mild cognitive impairment) Mild cognitive impairment, so stated 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, with late onset, uncomplicated (HCC) Alzheimer's disease History of PSVT (paroxysmal supraventricular tachycardia) Personal history of other diseases of circulatory system OSTEOARTHRITIS S/P TOTAL KNEES, 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), LEFT (7/) Generalized osteoarthrosis, unspecified site Sigmoid diverticulosis Diverticulosis of colon (without mention of hemorrhage) BPH without obstruction/lower urinary tract symptoms Hypertrophy of prostate without urinary obstruction and other lower urinary tract symptoms (LUTS) Supraventricular tachycardia (HCC) Other specified cardiac dysrhythmias documented in this encounter Advance Directives Latest [...] the patient have Health Care Power of Oven Unloader? No Care Teams Laundry Operator Finishing Relationship Specialty Start Date End Date Leilani Tomas DO [address] [facility] [place] [address] PCP - General Family Medicine 05/01/22 documented as of this encounter
--- OUTSIDE RECORDS SUMMARY | 2023-09-30 13:25 | External Medical Summary ---
Author Name Unknown Address Unknown Organization K01:[facility] [place] [address] [place] [address] Laboratory Report Ordering Provider Test Date Status FLAQUITO FLAHERTY 04/30/2023 09:37:24 Final Observation Date Value Abnormality Reference (Units ) Status TSH 04/30/2023 09:37:24 1.68 0.27-4.20 (uIU/mL) Final Performing Location LABORATORY [facility] - [address] [place] [address]
--- OUTSIDE RECORDS SUMMARY | 2023-09-30 13:25 | External Medical Summary ---
Author Name Unknown Address Unknown Organization K01[place] [place] [address] [facility] [address] Laboratory Report Ordering Provider Test Date Status FLAQUITO FLAHERTY 04/30/2023 09:37:24 Final Observation Date Value Abnormality Reference (Units ) Status WBC, Total 04/30/2023 09:37:24 4.07 4.00-10.80 (K/uL) Final RBC 04/30/2023 09:37:24 4.09 4.50-5.25 (M/uL) Final Hemoglobin 04/30/2023 09:37:24 12.1 Below low normal 14.0-16.8 (g/dL) Final HCT 04/30/2023 09:37:24 39.6 Below low normal 40.0-48.4 (%) Final MCV 04/30/2023 09:37:24 96.8 82.0-99.5 (fL) Final MCH 04/30/2023 09:37:24 29.6 27.0-34.0 (pg) Final MCHC 04/30/2023 09:37:24 30.6 32.0-36.0 (g/dL) Final RDW 04/30/2023 09:37:24 13.5 11.5-15.5 (%) Final Platelets 04/30/2023 09:37:24 140 140-400 (K/uL) Final MPV 04/30/2023 09:37:24 10.3 6.6-11.1 (fL) Final Nucleated erythrocytes/100 leukocytes [Ratio] in Blood by Automated count 04/30/2023 09:37:24 0 <=0 (/100 WBCs) Final Performing Location [facility] [place] [address] [place] [address]
--- OUTSIDE RECORDS SUMMARY | 2023-09-30 13:25 | External Medical Summary | Summary of Care ---
Author Name Unknown Organization [facility] Address [address] [place] [address] Phone [phone] Care Team Providers Care Fire Prevention Specialist Name Role Phone Leilani Tomas DO Primary Care Provider [phone] Reason for Visit * Reason Onset Date Comments Blood Pressure Check 05/01/2023 Encounter Details Date Type Department Care Team Description 05/01/2023 Telephone Family Practice [place] [address] [place] [address] Leilani Tomas DO [address] [facility] [place] [address] Blood Pressure Check Allergies No known active allergiesdocumented as of this encounter (statuses as of 05/02/2023) Medications Medication Sig Dispensed Refills Start Date [...] as of this encounter (statuses as of 05/02/2023) Active Problems Problem Noted Date Supraventricular tachycardia 03/07/2023 Dementia of the Alzheimer's type, with l ate onset, uncomplicated 11/21/2021 Other atherosclerosis of [place] arteries of extremities, bilateral legs 11/21/2021 [...] as of this encounter (statuses as of 05/02/2023) Resolved Problems Problem Noted Date Resolved Date [...] as of this encounter (statuses as of 05/02/2023) Immunizations Name Administration Dates Next Due COVID-19 mRNA, LNP-s, No Pre serve, 2-Dose Series (Fliptu) 07/14/2021,10/24/2020,10/03/2020 Diptheria/Tetanus (Adult) 06/22/2006 Pneumococcal Conjugate Vacc, [...] Telephone Encounter - Vivian Coronado LPN - 05/02/2023 10:58 AM EDT Home nursing will be setting up visits. [facility] will be pill packing his meds * Telephone Encounter - Leilani Tomas DO - 05/01/2023 5:32 PM EDT Continue home medications. Need to monitor his blood pressure. Is home nursing going out? * Telephone Encounter - Maral Valderrama LPN [...] at their upcoming appt. Will update . FYI Dr Tomas * Telephone Encounter - Marianne Acevedo [...] Office Visit Family Medicine Leilani Tomas DO [address] [place] [address] 07/10/2023 Office Visit Neurology Romina Peña PA-C 200 [facility] [place] [address] Health Maintenance Due Date Last Done Comments [...] Documents on File Type Date Recorded Patient Welcome Wagon Host/Hostess Expl anation POLST 04/21/2023 [place] DERS [...] the patient have Health Care Power of Morning News Anchor? No Care Teams Fire Prevention Specialist Relationship Specialty Start Date End Date Leilani Tomas DO [address] [facility] [place] [address] PCP - General Family Medicine 05/01/22 documented as of this encounter
--- OUTSIDE RECORDS SUMMARY | 2023-09-30 13:25 | External Medical Summary | Summary of Care ---
Author Name Unknown Organization [facility] Address [address] [place] [address] Phone [phone] Care Team Providers Care Tier And Detonator Name Role Phone José Miguel Tomasison Jay QUAN Primary Care Provider [phone] Reason for Visit * Reason Comments Outpatient Testing Encounter Details Date Type Department Care Team Description 04/30/2023 Laboratory Laboratory [place] [facility] Footedon [address] [place] [address] [facility] [address] [place] [address] Dementia of the Alzheimer's type, with late onset, uncomplicated (HCC); Other atherosclerosis of [place] arteries of extremities, bilateral legs (HCC); BPH without obstruction/lower urinary tract symptoms; Progressive vascular leukoencephalopathy (HCC); Internal hemorrhoid; Sigmoid diverticulosis; MCI (mild cognitive impairment); Cerebrovascular disease; Subclinical hypothyroidism; Essential hypertension with goal blood pressure less than 140/90; OSTEOARTHRITIS S/P TOTAL KNEES, 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), LEFT (03/19); 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); History of PSVT (paroxysmal supraventricular tachycardia); Dyslipidemia, goal LDL below 100; Tongue dysplasia; Screening for malignant neoplasm of skin; Anemia, unspecified type Allergies No known active allergiesdocumented as of [...] uncomplicated 11/21/2021 Other atherosclerosis of [place] arteries of extremities, bilateral legs 11/21/2021 BPH [...] Care Team Description 04/30/2023 Office Visit Family Medicine Leilani Tomas, [address] [facility] [place] [address] 05/09/2023 Office Visit Family Medicine Leilani Tomas, [address] [place] [address] 07/10/2023 Office Visit Neurology Romina Peña PA-C [address] [place] [address] 01/02/2024 Office Visit Urology Alfonzo Mcfarland, Alexx Cervantes MD [address] [facility] [address] [place] [address] Pending Results Name Type Priority Associated Diagnoses Date /Time CBC WITH WBC DIFFERENTIAL Lab Timed Dementia of the Alzheimer's type, with late onset, 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, bilateral legs (HCC) BPH without obstruction/lower urinary tract symptoms Progressive vascular leukoencephalopathy (HCC) Internal hemorrhoid Sigmoid diverticulosis MCI (mild cognitive impairment) Cerebrovascular disease Subclinical hypothyroidism Essential hypertension with goal blood pressure less than 140/90 OSTEOARTHRITIS S/P TOTAL KNEES, 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), 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) History of PSVT (paroxysmal supraventricular tachycardia) Dyslipidemia, goal LDL below 100 Tongue dysplasia Screening for malignant neoplasm of skin 04/30/2023 9:37 AM EDT COMPREHENSIVE METABOLIC PANEL Lab Timed Dementia of the Alzheimer's type, with late onset, 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, bilateral legs (HCC) BPH without obstruction/lower urinary tract symptoms Progressive vascular leukoencephalopathy (HCC) Internal hemorrhoid Sigmoid diverticulosis MCI (mild cognitive impairment) Cerebrovascular disease Subclinical hypothyroidism Essential hypertension with goal blood pressure less than 140/90 OSTEOARTHRITIS S/P TOTAL KNEES, 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), 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) History of PSVT (paroxysmal supraventricular tachycardia) Dyslipidemia, goal LDL below 100 Tongue dysplasia Screening for malignant neoplasm of skin 04/30/2023 9:37 AM EDT TSH WITH FREE T4 IF INDICATED Lab Timed Dementia of the Alzheimer's type, with late onset, 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, bilateral legs (HCC) BPH without obstruction/lower urinary tract symptoms Progressive vascular leukoencephalopathy (HCC) Internal hemorrhoid Sigmoid diverticulosis MCI (mild cognitive impairment) Cerebrovascular disease Subclinical hypothyroidism Essential hypertension with goal blood pressure less than 140/90 OSTEOARTHRITIS S/P TOTAL KNEES, 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), 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) History of PSVT (paroxysmal supraventricular tachycardia) Dyslipidemia, goal LDL below 100 Tongue dysplasia Screening for malignant neoplasm of skin 04/30/2023 9:37 AM EDT LIPID PANEL WITH DIRECT LDL IF TG IS HIGH Lab Timed Dementia of the Alzheimer's type, with late onset, 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, bilateral legs (HCC) BPH without obstruction/lower urinary tract symptoms Progressive vascular leukoencephalopathy (HCC) Internal hemorrhoid Sigmoid diverticulosis MCI (mild cognitive impairment) Cerebrovascular disease Subclinical hypothyroidism Essential hypertension with goal blood pressure less than 140/90 OSTEOARTHRITIS S/P TOTAL KNEES, 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), 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) History of PSVT (paroxysmal supraventricular tachycardia) Dyslipidemia, goal LDL below 100 Tongue dysplasia Screening for malignant neoplasm of skin 04/30/2023 9:37 AM EDT IRON SCREEN, INCLUDING TIBC Lab Routine Anemia, unspecified type 04/30/2023 9:37 AM EDT FERRITIN Lab Routine Anemia, unspecified type 04/30/2023 9:37 AM EDT VITAMIN B12 Lab Routine Anemia, unspecified type 04/30/2023 9:37 AM EDT FOLIC ACID Lab Routine Anemia, unspecified type 04/30/2023 9:37 AM EDT CBC Lab Timed Dementia of the Alzheimer's type, with late onset, 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, bilateral legs (HCC) BPH without obstruction/lower urinary tract symptoms Progressive vascular leukoencephalopathy (HCC) Internal hemorrhoid Sigmoid diverticulosis MCI (mild cognitive impairment) Cerebrovascular disease Subclinical hypothyroidism Essential hypertension with goal blood pressure less than 140/90 OSTEOARTHRITIS S/P TOTAL KNEES, 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), 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) History of PSVT (paroxysmal supraventricular tachycardia) Dyslipidemia, goal LDL below 100 Tongue dysplasia Screening for malignant neoplasm of skin 04/30/2023 9:37 AM EDT DIFFERENTIAL, AUTOMATED Lab Timed Dementia of the Alzheimer's type, with late onset, 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, bilateral legs (HCC) BPH without obstruction/lower urinary tract symptoms Progressive vascular leukoencephalopathy (HCC) Internal hemorrhoid Sigmoid diverticulosis MCI (mild cognitive impairment) Cerebrovascular disease Subclinical hypothyroidism Essential hypertension with goal blood pressure less than 140/90 OSTEOARTHRITIS S/P TOTAL KNEES, 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), 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) History of PSVT (paroxysmal supraventricular tachycardia) Dyslipidemia, goal LDL below 100 Tongue dysplasia Screening for malignant neoplasm of skin 04/30/2023 9:37 AM EDT Health Maintenance Due Date Last Done Comments COVID-19 Vaccine (4 - Pfizer series) 09/08/2021 07/14/2021, 10/24/2020, 10/03/2020 Depression Screening, Annual for Pts 12 and Over 04/06/2023 04/06/2022, 04/03/2016 Influenza Vaccine (FLU shot) (#1) 2023 07/03/2022, 05/13/2021, 05/19/2020, Additional history exists TSH 09/19/2023 09/19/2022, 03/0 03/2022, 04/25/2021, Additional history exists DTaP,Tdap,and Td [...] with late onset, uncomplicated (HCC) Alzheimer's disease Other atherosclerosis of [place] arteries of extremities, bilateral legs (HCC) BPH without obstruction/lower urinary tract symptoms Hypertrophy of prostate without urinary obstruction and other lower urinary tract symptoms (LUTS) Progressive vascular leukoencephalopathy (HCC) Progressive multifocal leukoencephalopathy Internal hemorrhoid Internal hemorrhoids without mention of complication Sigmoid diverticulosis Diverticulosis of colon (without mention of hemorrhage) MCI (mild cognitive impairment) Mild cognitive impairment, so stated Cerebrovascular disease Cerebrovascular disease, unspecified Subclinical hypothyroidism Other specified acquired hypothyroidism Essential hypertension with goal blood pressure less than 140/90 OSTEOARTHRITIS S/P TOTAL KNEES, 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), LEFT (03/19) Generalized osteoarthrosis, unspecified site 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 No Care Teams Tier And Detonator Relationship Specialty Start Date End Date Leilani Tomas DO [address] [facility] [place] [address] PCP - General Family Medicine 05/01/22 documented as of this encounter
--- OUTSIDE RECORDS SUMMARY | 2023-09-30 13:25 | External Medical Summary ---
Author Name Unknown Address Unknown Organization K01:LABORATORY [facility] - [address] [place] [address] Laboratory Report Ordering Provider Test Date Status FLAQUITO FLAHERTY 04/30/2023 09:37:24 Final Observation Date Value Abnormality Reference (Units ) Status Vitamin B12 04/30/2023 09:37:24 158 [id number] (pg/mL) Final Performing Location LAB[facility]ATORY [facility] - [address] [place] [address]
--- OUTSIDE RECORDS SUMMARY | 2023-09-30 13:25 | External Medical Summary | Summary of Care ---
Author Name Unknown Organization [facility] Address [address] [place] [address] Phone [phone] Care Team Providers Care Towel Folder Name Role Phone Leilani Tomas DO Primary Care Provider [phone] Encounter Details Date Type Department Care Team Description 05/01/2023 Telephone Family Practice [place] [address] [place] [address] Leilani Tomas DO [address] [place] [address] Allergies No known active allergiesdocumented as [...] ate onset, uncomplicated 11/21/2021 Other atherosclerosis of [place] arteries of extremities, bilateral legs 11/21/2021 BPH [...] mRNA, LNP-s, No Pre serve, 2-Dose Series (Vigster) 07/14/2021,10/24/2020,10/03/2020 Diptheria/Tetanus (Adult) 06/22/2006 Pneumococcal Conjugate Vacc, [...] Office Visit Family Medicine Leilani Tomas DO [address] [facility] [place] [address] 07/10/2023 Office Visit Neurology Romina Peña PA-C [address] [facility] [place] [address] Health Maintenance Due Date Last Done Comments [...] Documents on File Type Date Recorded Patient Special Needs Librarian Expl anation POLST 04/21/2023 [place] [...] the patient have Health Care Power of Forge Press Operator? No Care Teams Towel Folder Relationship Specialty Start Date End Date Leilani Tomas DO [address] [facility] [place] [address] PCP - General Family Medicine 05/01/22 documented as of this encounter
--- OUTSIDE RECORDS SUMMARY | 2023-09-30 13:25 | External Medical Summary | Summary of Care ---
Author Name Unknown Organization [facility] Address [address] [place] [address] Phone [phone] Care Team Providers Care Dynamometer Repairer Name Role Phone Leilani Tomas DO Primary Care Provider [phone] Encounter Details Date Type Department Care Team Description 05/01/2023 Telephone Family Practice [place] [address] [place] [address] [place] [address] Leilani Tomas DO [address] [facility] [place] [address] Allergies No known active allergiesdocumented as [...] ate onset, uncomplicated 11/21/2021 Other atherosclerosis of [place] arteries of extremities, bilateral legs 11/21/2021 BPH [...] mRNA, LNP-s, No Pre serve, 2-Dose Series (IntelliMat) 07/14/2021,10/24/2020,10/03/2020 Diptheria/Tetanus (Adult) 06/22/2006 Pneumococcal Conjugate Vacc, [...] Office Visit Family Medicine Leilani Tomas DO [address] [facility] [place] [address] 07/10/2023 [facility] Visit [facility] [address] [facility] [address] Health Maintenance Due Date Last Done Comments [...] Documents on File Type Date Recorded Patient Nitrating Acid Mixer Expl anation POLST 04/21/2023 [place] [...] the patient have Health Care Power of Stone Rigger? No Care Teams Dynamometer Repairer Relationship Specialty Start Date End Date Leilani Tomas DO [address] [facility] [place] [address] PCP - General Family Medicine 05/01/22 documented as of this encounter
--- OUTSIDE RECORDS SUMMARY | 2023-09-30 13:25 | External Medical Summary | Summary of Care ---
Author Name Unknown Organization [facility] Address [address] [place] [address] Phone [phone] Care Team Providers Care Endless Track Vehicle Supervisor Name Role Phone Leilani Tomas DO Primary Care Provider [phone] Encounter Details Date Type Department Care Team Description 05/01/2023 Telephone Family Practice [place] [address] [place] [address] Leilani Tomas DO [address] [facility] [place] [address] Allergies No known active allergiesdocumented as [...] ate onset, uncomplicated 11/21/2021 Other atherosclerosis of [place] arteries of extremities, bilateral legs 11/21/2021 BPH [...] mRNA, LNP-s, No Pre serve, 2-Dose Series (5by) 07/14/2021,10/24/2020,10/03/2020 Diptheria/Tetanus (Adult) 06/22/2006 Pneumococcal Conjugate Vacc, [...] 05/09/2023 Office Visit Family Medicine Leilani Tomas, DO [address] [facility] [place] [address] 07/10/2023 Office Visit Neurology Romina Peña PA-C [address] [facility] [place] [address] Health Maintenance Due Date Last Done Comments [...] Documents on File Type Date Recorded 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 No Care Teams Endless Track Vehicle Supervisor Relationship Specialty Start Date End Date Leilani Tomas DO [address] [facility] [place] [address] PCP - General Family Medicine 05/01/22 documented as of this encounter
--- OUTSIDE RECORDS SUMMARY | 2023-09-30 13:25 | External Medical Summary ---
Author Name Unknown Address Unknown Organization K01:LABORATORY [facility] - [address] [place] [address] Laboratory Report Ordering Provider Test Date Status FLAQUITO FLAHERTY 04/30/2023 09:37:24 Final Observation Date Value Abnormality Reference (Units ) Status Folic Acid 04/30/2023 09:37:24 >20.0 >4.5 (ng/ mL) Final Performing Location [facility] - [address] [place] [address]
--- OUTSIDE RECORDS SUMMARY | 2023-09-30 13:26 | External Medical Summary | Summary of Care ---
Author Name Unknown Organization [facility] Address [address] [place] [address] Phone [phone] Care Team Providers Care Residential Counselor Name Role Phone Leilani Tomas Prasannajanak Primary Care Provider [phone] Encounter Details Date Type Department Care Team Description 04/05/2023 Result Scan Unspecified Department <No scans attached> Allergies No known active allergiesdocumented as of this encounter (statuses as of 04/06/2023) Medications Medication Sig Dispensed Refills Start Date [...] as of this encounter (statuses as of 04/06/2023) Active Problems Problem Noted Date Supraventricular tachycardia 03/07/2023 Dementia of the Alzheimer's type, with l ate onset, uncomplicated 11/21/2021 Other atherosclerosis of [place] arteries of extremities, bilateral legs 11/21/2021 BPH [...] as of this encounter (statuses as of 04/06/2023) Resolved Problems Problem Noted Date Resolved Date [...] as of this encounter (statuses as of 04/06/2023) Immunizations Name Administration Dates Next Due COVID-19 mRNA, LNP-s, No Pre serve, 2-Dose Series ([email or web address]) 07/14/2021,10/24/2020,10/03/2020 Diptheria/Tetanus (Adult) 06/22/2006 Pneumococcal Conjugate Vacc, [...] Office Visit Family [facility] [facility] [address] [facility]2023 Office Visit Neurology Romina Peña PA-C [address] [place] [address] 01/02/2024 Office Visit Urology Alexx Mejía Jr., [...] Procedure Name Priority Date/Time Associated Diagnosis Comments CARDIOLOGY SCANNED RESULT 04/05/2023 documented in this encounter Results * CARDIOLOGY SCANNED RESULT (04/05/2023) 04/05/2023 No Physician Data Unknown OTHER documented in this encounter Advance Directives Latest [...] the patient have Health Care Power of Car Changer? No Care Teams Residential Counselor Relationship Specialty Start Date End Date Tomas, Leilani Buza, DO [address] [facility] [place] [address] PCP - General Family Medicine 05/01/22 documented as of this encounter
[2023-09-30] MEDS ORDERED: DONEPEZIL HCL 10 MG TAB PO STA (14:16)
[2023-09-30] MEDS ORDERED: MEMANTINE HCL 5 MG TAB PO STA (14:16)
[2023-09-30 14:40] LABS: Basophils # (auto) 0.01 K/uL (0.00-0.20); Basophils % (auto) 0.2 %; Eosinophils # (auto) 0.14 K/uL (0.00-0.50); Eosinophils % (auto) 2.7 %; Hematocrit (blood only) 39.7 % (42.0-52.0); Hemoglobin 12.8 g/dl (14.0-18.0); Immature Granulocytes # (auto) 0.01 K/uL (0.01-0.20); Immature Granulocytes % (auto) 0.2 %; Lymphocytes # (auto) 1.34 K/uL (1.20-3.40); Lymphocytes % (auto) 25.5 %; Mean Corpuscular Hgb Conc 32.2 g/dL (32.0-36.0); Mean Corpuscular Volume 89.8 fL (80.0-100.0); Mean Platelet Volume 10.4 fL (9.4-12.4); Monocytes % (auto) 7.6 %; Neutrophils # (auto) 3.36 K/uL (1.40-6.50); Neutrophils % (auto) 63.8 %; Platelet Count 101 K/uL (130-400); RDW Coefficient of Variation 12.6 % (11.5-14.5); RDW Standard Deviation 41.7 fL (36.4-46.3); Red Blood Count 4.42 M/uL (4.70-6.10); White Blood Count 5.26 K/ul (4.8-10.8)
--- NOTE | 2023-09-30 14:45 | Communication Note ---
Date of Service: September 30, 2023 Communication note to state: Discussed with Jonathan Loredo, admitting for [facility]. Patient was accepted for transfer under the care of [facility]; upon arrival to [facility], realized this is a [facility] patient. [facility] providing full work up for continued stroke-like symptoms. [facility] will continue to provide care for patient until 10/01/23 @ 0700. [facility] will take patient under our service at that time. Discussed with [facility] attending.
[2023-09-30 14:52] LABS: Alanine Aminotransferase 14 U/L (7-52); Albumin Globulin Ratio 1.8 (0.9-2); Albumin Level 4.6 gm/dl (3.4-5.0); Alkaline Phosphatase 82 U/L (34-104); Anion Gap 9 (3-11); Aspartate Aminotransferase 25 U/L (13-39); Bilirubin,Total 0.6 mg/dl (0.2-1.0); Blood Urea Nitrogen 27 mg/dl (6-23); Calcium 9.7 mg/dl (8.6-10.3); Carbon Dioxide 28 mmol/L (21-32); Chloride 105 mmol/L (98-107); Est GFR (Non-African American) 64.7 ml/min; Globulin 2.6 gm/dl (2.5-4.0); Glucose 84 mg/dl (70-99(Fasting)); Magnesium 2.3 mg/dl (1.7-2.4); Potassium 4.2 mmol/L (3.5-5.1); Sodium 142 mmol/L (136-145); Total Protein 7.2 gm/dl (6.0-8.3)
[2023-09-30 15:06] LABS: INR 1.1 (0.9-1.1); Prothrombin Time 11.6 Seconds (9.0-12.0)
--- NOTE | 2023-09-30 15:56 | XRay Report ---
XR chest 1V portable CLINICAL HISTORY: admission ecg for transfer TECHNIQUE: Single frontal radiograph of the chest was obtained. Comparison: None available at the time of this dictation. 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 Calcified aortic knob is seen. The lungs are clear. No evidence of pl eural effusion or pneumothorax. IMPRESSION: No acute chest disease. ACT 112: Negative or not required by law. Electronically signed by: Cesar Raya M.D. 09/30/2023 3:55 PM
[2023-09-30] MEDS: LACTATED RINGER'S 1,000 ML IV SCH (16:29)
[2023-09-30 16:50] LABS: Appearance Urine Clear (Clear); Bacteria Urine Automated Negative (Negative); Bilirubin Urine Negative (Negative); Blood Urine 2+ (Negative); Color Urine Yellow; Epithelial Cell Urine Auto 0-5 /lpf (0-5); Glucose Urine UA Negative (Negative); Ketones Urine 1+ (Negative); Leukocyte Esterase Urine Negative (Negative); Nitrite Urine Negative (Negative); Protein Urine Negative (Negative); Specific Gravity Urine 1.031 (1.000-1.030); Urobilinogen Urine Negative (Negative); pH Urine 5.5 (4.5-7.5)
--- NOTE | 2023-09-30 19:22 | Cardiology Consultation ---
Date of Consultation September 30, 2023 Assessment & Plan (1) Pacemaker malfunction: the device was interrogated today and based on my independent interpretation the left bundle (RV) lead is undersensing the R waves resulting in an inappropriate pacing spike after the QRS complex. The R waves are very low on the device-but I will try to reprogram around this later this week otherwise the lead is functioning fine and will capture if needed fortunately pt does not need ventricular pacing only atrial pacing (2) Sick sinus syndrome: s/p ppm 08/06/23 steri-strips still on today-i removed them device interrogated see above (3) Atrial fibrillation: ok to continue eliquis continue amio LFT and TFT ok QTC ok continue metoprolol (4) HTN (hypertension): -BP is on the higher side continue lisinopril, norvasc metoprol (5) Stroke-like symptoms: -pt can not have an MRI due to his pacemaker being a [employer] (6) Dyslipidemia: -Continue simvastatin QHS (7) Abnormal ECG: the pacemaker is undersensing the r waves resulting in a pacing spike after the QRS (8) Vascular dementia: -Continue Namenda and Donepezil (9) Carotid atherosclerosis: (10) S/P placement of cardiac pacemaker: (11) Hypothyroidism: -Continue levothyroxine (12) BPH (benign prostatic hyperplasia): -Continue finasteride Plan This is an 88y/o M with PMH SSS, TBS s/p ppm 08/06/2023 at outside hospital (lopez device with medtronic RV/left bundle lead-so not MRI compatible), pAF on eliquis and amio, HTN, HLD, dementia His admission ECG suggests pacemaker malfunction which is true and confirmed on pacemaker interrogation-the R waves are low and the pacemaker is undersensing them resulting in a ventricular pacing spike after the QRS complex. I will try to reprogram around this by personally interrogating the device later this week. otherwise no need to hold eliquis or other cardiac medications I discussed my recommendations with the hospitalist over the phone and he agreed History of Present Illness Reason for Consultation: pacemaker malfunction Requesting Physician: Dr. Stapleton Attending Physician: Jonathan Loredo MD History of Present Illness pt was transferred from [facility] due to concerns about a CVA and he needed an MRI but has a ppm. pt is not able to give a history give his underlying dementia cardiology was consulted due to concerns about pacemaker malfunction Allergies Allergy/AdvReac Type Severity Reaction Status Date / Time No Known Allergies Allergy Unknown ? Verified 12/07/08 14:04 Home Medications Medication Instructions Recorded Confirmed Type Amlodipine (Norvasc) 10 mg PO DAILY ##0 01/26/09 09/30/23 History GLUCOSAMINE 2 tab PO DAILY ##0 01/26/09 History Multivitamin 1 tab PO DAILY ##0 01/26/09 History Eliquis 2.5 mg PO BID 09/30/23 09/30/23 History amiodarone 200 mg tablet 200 mg PO BID 09/30/23 09/30/23 History donepezil 10 mg PO DAILY 09/30/23 09/30/23 History finasteride 5 mg tablet 5 mg PO DAILY 09/30/23 09/30/23 History levothyroxine 50 mcg tablet 50 mcg PO DAILY 09/30/23 09/30/23 History lisinopril 20 mg tablet 20 mg PO BID 09/30/23 09/30/23 History memantine 5 mg tablet 5 mg PO BID 09/30/23 09/30/23 History metoprolol succinate 25 mg 25 mg PO DAILY 09/30/23 09/30/23 History tablet,extended release 24 hr simvastatin 20 mg PO HS 09/30/23 09/30/23 History tamsulosin 0.4 mg capsule 0.4 mg PO DAILY 09/30/23 09/30/23 History Patient History Social History Second Hand Exposure: No; Do You Dip or Chew Tobacco: No; Tobacco Cessation Education Requested by Patient: No Hx Alcohol Use: No Hx Substance Use: No Preferred Language: Hungarian Communication Ability: Impaired Band Attacher Required: No Beliefs That Will Affect Care: None Current Living Situation: Spouse Other Information That Helps Us Care for You: No Feels Safe at Home: No Is there a partner from a previous relationship who is making you feel unsafe now?: No Any Concerns about Your Family Situation: No Would You Like to Speak to Someone About Your Situation: No Safety Concerns: Feels Safe At This Time Assistive Devices: Stair Lift Review of Systems Review of Systems: Unobtainable due to cognitive status Physical Exam Physical Exam: awake and alert oriented to name only NC/AT, EOMI Supple No JVD Nrl S1/S2, No murmur CTA b/l no w/r/r soft nt/nd no LE edema b/l skin intact no focal deficits left pectoral incision intact,steri stips sill on Results & Data Vital Signs (Past 12 Hours) Vital Signs Temp Pulse Pulse Resp BP Pulse Ox Pulse Ox 09/30/23 16:12 36.1 C L 92 H 18 172/74 H 96 09/30/23 16:12 36.1 C L 92 H 18 172/74 H 96 09/30/23 16:12 96 09/30/23 16:00 09/30/23 15:52 65 09/30/23 14:16 09/30/23 14:16 36.9 C 60 18 167/76 H 95 09/30/23 11:20 36.9 C 60 20 169/76 H 95 O2 Del Method O2 Del Method O2 Flow Rate 09/30/23 16:12 Room Air 09/30/23 16:12 Room Air 09/30/23 16:12 Room Air 0 09/30/23 16:00 Room Air 09/30/23 15:52 09/30/23 14:16 Room Air 09/30/23 14:16 Room Air 09/30/23 11:20 Room Air Laboratory Results Cardiac Enzymes 09/30/23 Range/Units 14:20 AST 25 (13-39) U/L Coagulation 09/30/23 Range/Units 14:20 PT 11.6 (9.0-12.0) Seconds CBC 09/30/23 Range/Units 14:20 WBC 5.26 (4.8-10.8) K/ul RBC 4.42 L (4.70-6.10) M/uL Hgb 12.8 L (14.0-18.0) g/dl Hct 39.7 L (42.0-52.0) % Plt Count 101 L (130-400) K/uL Neut # (Auto) 3.36 (1.40-6.50) K/uL Lymph # (Auto) 1.34 (1.20-3.40) K/uL Leon # (Auto) 0.40 (0.11-0.59) K/uL Eos # (Auto) 0.14 (0.00-0.50) K/uL Baso # (Auto) 0.01 (0.00-0.20) K/uL Comprehensive Metabolic Panel 09/30/23 Range/Units 14:20 Sodium 142 (136-145) mmol/L Potassium 4.2 (3.5-5.1) mmol/L Chloride 105 (98-107) mmol/L Carbon Dioxide 28 (21-32) mmol/L BUN 27 H (6-23) mg/dl Creatinine 1.04 (0.6-1.4) mg/dl Glucose 84 (70-99(Fasting)) mg/dl Calcium 9.7 (8.6-10.3) mg/dl AST 25 (13-39) U/L ALT 14 (7-52) U/L Alkaline Phosphatase 82 (34-104) U/L Total Protein 7.2 (6.0-8.3) gm/dl Albumin 4.6 (3.4-5.0) gm/dl Intake and Output 09/30/23 09/30/23 09/30/23 06:59 14:59 22:59 Output Total 600 / 600 Balance -600 / -600 Output: Urine 600 / 600 Other: Weight 56.1 kg Weight Measurement Method Built in [facility] Patient Weight 10/01/23 06:59 Weight 56.1 kg Diagnostic Findings EC09/30/23:AP with VS with the pacemaker undersensing the R waves so the ventricular lead non-capture CXR:09/30/23 based on my independent interpretation no acute cardio-pulmonary process pacemaker leads in place not much slack on the left bundle (RV) pacing lead Medications Administered Current Inpatient Medications Amiodarone HCl (Amiodarone 200 Mg Tab) 200 mg PO DAILY [facility] Stop: 10/31/23 08:59 Amlodipine Besylate (Amlodipine Besylate 5 Mg Tab) 10 mg PO DAILY [facility] Stop: 10/31/23 08:59 Apixaban (Apixaban 2.5 Mg Tab) 2.5 mg PO BID [facility] Stop: 10/30/23 20:59 Donepezil HCl (Donepezil Hcl 10 Mg Tab) 10 mg PO DAILY [facility] Stop: 10/31/23 08:59 Finasteride (Finasteride 5 Mg Tab) 5 mg PO DAILY [facility] Stop: 10/31/23 08:59 Lactated Ringer's (Lr) 1,000 mls @ 80 mls/hr IV .[id number] [facility] Stop: 10/01/23 16:14 Last Admin: 09/30/23 16:29 Dose: 80 mls/hr Levothyroxine Sodium (Levothyroxine Sodium 50 Mcg Tablet) 50 mcg PO DAILYBB [facility] Stop: 10/31/23 06:29 Lisinopril (Lisinopril 20 Mg Tab) 20 mg PO BID [facility] Stop: 10/30/23 20:59 Memantine (Memantine Hcl 5 Mg Tab) 5 mg PO BID [facility] Stop: 10/30/23 20:59 Metoprolol Succinate (Metoprolol Succ 25mg Ext Rel Tab) 25 mg PO DAILY [facility] Stop: 10/31/23 08:59 Miscellaneous Information (Pharmacist Discharge Med Rec Consult) 1 each N/A UD PRN PRN Reason: Consult Stop: 10/30/23 13:06 Simvastatin (Simvastatin 20 Mg Tab) 20 mg PO HS [facility] Stop: 10/30/23 20:59 Tamsulosin HCl (Tamsulosin Hcl 0.4 Mg Cap) 0.4 mg PO DAILY [facility] Stop: 10/31/23 08:59
[2023-09-30] MEDS: lisinopril 20 MG TAB PO SCH (20:05)
[2023-09-30] MEDS: MEMANTINE HCL 5 MG TAB PO SCH (20:05)
[2023-09-30] MEDS: SIMVASTATIN 20 MG TAB PO SCH (20:05)
[2023-09-30] MEDS: APIXABAN 2.5 MG TAB PO SCH (20:05)
[2023-10-01] MEDS: LACTATED RINGER'S 1,000 ML IV SCH (02:22)
[2023-10-01] MEDS: LEVOTHYROXINE SODIUM 50 MCG TABLET PO SCH (05:37)
[2023-10-01 06:32] LABS: Basophils # (auto) 0.02 K/uL (0.00-0.20); Basophils % (auto) 0.4 %; Eosinophils # (auto) 0.16 K/uL (0.00-0.50); Eosinophils % (auto) 3.5 %; Hematocrit (blood only) 38.1 % (42.0-52.0); Hemoglobin 12.6 g/dl (14.0-18.0); Immature Granulocytes # (auto) 0.02 K/uL (0.01-0.20); Immature Granulocytes % (auto) 0.4 %; Lymphocytes # (auto) 1.19 K/uL (1.20-3.40); Mean Corpuscular Hemoglobin 29.1 pg (25.0-34.0); Mean Corpuscular Hgb Conc 33.1 g/dL (32.0-36.0); Mean Platelet Volume 10.5 fL (9.4-12.4); Monocytes # (auto) 0.38 K/uL (0.11-0.59); Monocytes % (auto) 8.3 %; Neutrophils # (auto) 2.81 K/uL (1.40-6.50); Neutrophils % (auto) 61.4 %; Platelet Count 106 K/uL (130-400); RDW Coefficient of Variation 12.5 % (11.5-14.5); Red Blood Count 4.33 M/uL (4.70-6.10); White Blood Count 4.58 K/ul (4.8-10.8)
[2023-10-01 06:35] LABS: Anion Gap 8 (3-11); BUN Creatinine Ratio 21.4 (10-20); Blood Urea Nitrogen 18 mg/dl (6-23); Calcium 9.5 mg/dl (8.6-10.3); Carbon Dioxide 28 mmol/L (21-32); Chloride 107 mmol/L (98-107); Chol HDL Ratio 2.1 (0-5); Cholesterol 126 mg/dl (0-200); Est GFR (African American) 91.9 ml/min; Est GFR (Non-African American) 79.3 ml/min; Glucose 79 mg/dl (70-99(Fasting)); HDL Cholesterol 61 mg/dl; LDL Cholesterol Calculated 50 mg/dl; Potassium 3.7 mmol/L (3.5-5.1); Sodium 143 mmol/L (136-145); Triglycerides 73 mg/dl (0-150); VLDL Cholesterol 15 mg/dl (0-30)
[2023-10-01 06:41] LABS: INR 1.1 (0.9-1.1); Prothrombin Time 11.6 Seconds (9.0-12.0)
[2023-10-01 07:47] LABS: Estimated Average Glucose 105 mg/dl; Hemoglobin A1C 5.3 % (4.5-5.6)
[2023-10-01] MEDS: TAMSULOSIN HCL 0.4 MG CAP PO SCH ×2 (09:08→09:17)
[2023-10-01] MEDS: FINASTERIDE 5 MG TAB PO SCH ×2 (09:08→09:17)
[2023-10-01] MEDS: METOPROLOL SUCC 25MG EXT REL TAB PO SCH ×2 (09:09→09:17)
[2023-10-01] MEDS: lisinopril 20 MG TAB PO SCH ×2 (09:17→20:36)
[2023-10-01] MEDS: amLODIPine BESYLATE 5 MG TAB PO SCH (09:17)
[2023-10-01] MEDS: MEMANTINE HCL 5 MG TAB PO SCH ×2 (09:17→20:36)
[2023-10-01] MEDS: AMIODARONE 200 MG TAB PO SCH (09:18)
[2023-10-01] MEDS: APIXABAN 2.5 MG TAB PO SCH ×2 (09:18→20:37)
[2023-10-01] MEDS: DONEPEZIL HCL 10 MG TAB PO SCH (09:18)
--- NOTE | 2023-10-01 14:19 | Electrocardiogram Report ---
Test Reason : Blood Pressure : / mmHG Vent. Rate : 060 BPM Atrial Rate : 061 BPM P-R Int : 000 ms QRS Dur : 128 ms QT Int : 436 ms P-R-T Axes : 000 -23 -07 degrees QTc Int : 436 ms Atrial-paced rhythm with ventricular pacing in the refractory period (possibly undersensing) Non-specific intra-ventricular conduction block Abnormal ECG When compared with ECG of 24-MAR-2010 12:10, Electronic atrial pacemaker has replaced Sinus rhythm Confirmed by Rachid Horowitz ([id number]) on 10/01/2023 2:19:15 PM Referred By: Jonathan Loredo Confirmed By:Dustin Horowitz
--- NOTE | 2023-10-01 15:16 | Fluoroscopy Report ---
MODIFIED BARIUM SWALLOW CLINICAL HISTORY: assess for aspiration COMPARISON STUDY: None. FLUOROSCOPY TIME: 1.57 minutes. Ka, r: 9.69 mGy. TECHNIQUE: A modified barium swallow was performed in conjunction with Speech Pathology. The patient ingested varying consistencies of barium containing material. Video fluoroscopy was performed. FINDINGS: Large anterior osteophytes within the mid cervical spine indent the posterior aspect of the hypopharynx and proximal esophagus. This results in retention of several consistencies. Several epis odes of a small amount of silent tracheal aspiration with thin liquids and nectar thick liquids were noted. No aspiration was identified with pudding or cracker in pudding consistencies. IMPRESSION: 1. Several episodes of a small amount of silent tracheal aspiration with thin liquids and nectar thic k liquids. No aspiration with pudding or cracker and pudding consistencies. 2. Moderate residuals within the vallecula and piriform sinuses with multiple consistencies. Large an terior osteophyte within the mid cervical spine which indent the posterior hypopharynx and proximal e sophagus and increase retention of several consistencies. 3. Full recommendations by speech pathology to follow. ACT 112: Negative or not required by law. Electronically signed by: Constantino Treadwell M.D. 10/01/2023 3:15 PM
--- NOTE | 2023-10-01 16:01 | CT Scan Report ---
CT OF THE HEAD WITHOUT CONTRAST CLINICAL HISTORY: Stroke. COMPARISON STUDY: No previous studies for comparison. CT DOSE: 1000.44 mGy.cm TECHNIQUE: Helical axial images of the head were obtained without IV contrast. Automated exposure con trol was utilized for the study. A dose lowering technique was utilized adhering to the principles o f ALARA. FINDINGS: No acute intracranial hemorrhage, midline shift or mass effect is present. White matter hyp odensity suggests small vessel disease. There is mild age-appropriate atrophy. The ventricular system is unremarkable. The basal cisterns are patent. No extra-axial collections are present. There are no findings to suggest acute dural sinus thrombosis or acute territorial infarct. No significant calvar ial abnormalities are present. Visualized portions of the sinuses and mastoid air cells are clear. IMPRESSION: No acute intracranial findings. ACT 112: Negative or not required by law. Electronically signed by: Constantino Treadwell M.D. 10/01/2023 4:00 PM
--- NOTE | 2023-10-01 16:22 | Hospitalist Progress Note ---
Date of Service October 01, 2023 Assessment & Plan (1) Stroke-like symptoms: Plan: -Stroke has been ruled out and without any TIA -Currently stable and back to his neurologic baseline per family at [facility] -Initially presented to the [facility] ED due to an episode of starring off and not responding to his . Episode lasted approximately 30 min and resolved by the time EMS arrived. -Vitals and labs were unremarkable -CT of the head/brain and CTA of the head were negative for acute findings -CTA of the neck noted BL carotid disease without significant narrowing or stenosis -At this time the etiology of the patient's episode of altered consciousness is unknown but the differential includes and is not limited to acute CVA, complication from his known vascular dementia, anxiety, behavioral disturbance -The ED discussed with [facility] Neurology who recommended MRI for further evaluation >Patient was accepted to the [facility] team as it was unknown at that time that the patient's PCP is a [facility] Provider -Spoke with MRI as the patient had a Pacemaker placed; unfortunately the patient's pacemaker is NOT MRI compatible due to one of his [employer] leads -Was given full dose aspirin at [facility] ED -Will wait to continue Eliquis and Aspirin until we speak with [facility] with his abnormal ECG on arrival -Echo of the heart showed normal LV wall thickness, LV wall motion is normal, LV systolic function is normal with EF of 55 to 60%, aortic valve is trileaflet with mild aortic stenosis and there is no significant aortic regurgitation. -Hemoglobin A1c is a normal at 5.3 -Lipid profile has been unremarkable -Video swallow did show mild aspiration and will go by the speech therapy recommendation for diet -No neurological symptoms and the patient remains stable -Patient cannot have MRI but repeat CAT scan remained unremarkable -Will get PT and OT evaluation -Video swallow did not show silent aspiration. Noted to have a large anterior osteophyte within the mid cervical spine which indents the posterior hypopharynx and proximal esophagus and increased retention of several consistencies -Diet as per speech therapist recommendation (2) Abnormal ECG: Plan: -ECG obtained on admission shows an atrial paced rhythm nonspecific intraventricular block concerning for possible pacemaker failure -Patient has been asymptomatic since arrival to our facility -Admission labs are currently in process, will follow up -Will consult [facility] for further assistance and treatment- appreciate input and recommendation -EKG has paced rhythm and -Pacemaker will be reprogrammed by Dr. Ruthann sometime this week -Patient remains free from any symptoms -Pacemaker will be reprogrammed tomorrow (3) Vascular dementia: Plan: -Continue Namenda and Donepezil -Ongoing dementia without any acute confusion (4) HTN (hypertension): Plan: -Currently stable -Continue (5) Dyslipidemia: Plan: -Currently on 20 mg HS simvastatin QHS -Follow fasting lipid panel and adjust dosing as needed (6) Carotid atherosclerosis: Plan: -Noted on CTA of the neck per transfer records from [facility] ED -No significant stenosis to warrant urgent treatment -Would speak with Vascular surgery prior to discharge to arrange outpatient follow up (7) Atrial fibrillation: Plan: -Currently in an atrial paced rhythm with new, nonspecific intraventricular block -Did have HS dose of Eliquis last night and am dose of cardiac meds per transfer records -Will speak with Cardiology to determine which medications to continue at this time -Continue to monitor on tele (8) S/P placement of cardiac pacemaker: Plan: -Follow pacemaker interrogation -Cardiology consulted -pacemaker will be reprogrammed sometime this week (9) Hypothyroidism: Plan: -Continue levothyroxine (10) BPH (benign prostatic hyperplasia): Plan: -Continue finasteride Plan The patient was discussed with Dr. Loredo at the time of the admission DVT prophylaxis On Eliquis CODE STATUS DNR/DNI Admission and Anticipated Discharge Date Admission Date: September 30, 2023 Subjective 10/01/2023 The patient was seen and examined in medical telemetry unit He has been pleasantly confused but denies any other symptoms No headache, no visual symptoms, no facial asymmetry, no numbness and or tingling and no weakness involving any side of the body 10/02/2023 The patient was seen and examined in medical telemetry unit He has been stable and remains pleasantly confused No acute delirium No arrhythmias and no new symptoms Review of Systems Review of Systems: All systems reviewed and are unremarkable except as noted below Physical Exam Physical Exam: Sitting on a chair without any acute distress Constitutional: + ill appearing and average body habitus Eyes: PERRL, conjunctivae normal, anicteric sclerae ENMT: external ear and nose normal, oropharynx normal Neck: trachea midline, no thyromegaly Respiratory: no respiratory distress Auscultation: + diminished lung sounds and + crackles (Minimal crackles at the bases) Cardiovascular: Rate/Rhythm: regular rate and regular rhythm; not tachycardic Heart Sounds: normal S1, normal S2 and + murmur (2/6 ESM over precordium) Extremities: + edema (No edema) Gastrointestinal (Abdomen): Inspection/Auscultation: normal bowel sounds; abdomen not distended Percussion/Palpation: abdomen soft; abdomen nontender Musculoskeletal: No acute arthritis involving any of the joint Neurologic: Alert and awake. Pleasantly confused. No facial asymmetry, no dysarthria, no visual symptoms, no numbness or tingling in the extremity, no weakness involving any side of the body Lymphatic: no cervical or axillary lymphadenopathy Results & Data Results & Data Vital Signs (Past 12 Hours) Vital Signs Temp Pulse Pulse Resp BP BP Pulse Ox 10/01/23 15:08 63 10/01/23 12:03 36.4 C L 60 18 119/60 98 10/01/23 07:39 36.6 C 77 18 175/80 H 95 10/01/23 07:14 10/01/23 05:58 60 10/01/23 04:49 36.6 C 85 20 182/72 H 97 O2 Del Method 10/01/23 15:08 10/01/23 12:03 Room Air 10/01/23 07:39 Room Air 10/01/23 07:14 Room Air 10/01/23 05:58 10/01/23 04:49 Room Air Laboratory Results Short CBC 10/01/23 Range/Units 05:24 WBC 4.58 L (4.8-10.8) K/ul Hgb 12.6 L (14.0-18.0) g/dl Hct 38.1 L (42.0-52.0) % Plt Count 106 L (130-400) K/uL BMP 10/01/23 05:24 Sodium 143 Potassium 3.7 Chloride 107 Carbon Dioxide 28 BUN 18 Creatinine 0.84 Glucose 79 Calcium 9.5 Urine 09/30/23 Range/Units 16:36 Urine Color Yellow Urine Appearance Clear (Clear) Urine pH 5.5 (4.5-7.5) Ur Specific [place] 1.031 H (1.000-1.030) Urine Protein Negative (Negative) Urine Glucose (UA) Negative (Negative) Medications Administered Current Inpatient Medications Amiodarone HCl (Amiodarone 200 Mg Tab) 200 mg PO DAILY [facility] Stop: 10/31/23 08:59 Last Admin: 10/01/23 09:18 Dose: 200 mg Amlodipine Besylate (Amlodipine Besylate 5 Mg Tab) 10 mg PO DAILY [facility] Stop: 10/31/23 08:59 Last Admin: 10/01/23 09:17 Dose: 10 mg Apixaban (Apixaban 2.5 Mg Tab) 2.5 mg PO BID [facility] Stop: 10/30/23 20:59 Last Admin: 10/01/23 09:18 Dose: 2.5 mg Donepezil HCl (Donepezil Hcl 10 Mg Tab) 10 mg PO DAILY [facility] Stop: 10/31/23 08:59 Last Admin: 10/01/23 09:18 Dose: 10 mg Finasteride (Finasteride 5 Mg Tab) 5 mg PO DAILY [facility] Stop: 10/31/23 08:59 Last Admin: 10/01/23 09:17 Dose: 5 mg Lactated Ringer's (Lr) 1,000 mls @ 80 mls/hr IV .[id number] [facility] Stop: 10/01/23 16:14 Last Infusion: 10/01/23 13:26 Dose: Infused Levothyroxine Sodium (Levothyroxine Sodium 50 Mcg Tablet) 50 mcg PO DAILYBB [facility] Stop: 10/31/23 06:29 Last Admin: 10/01/23 05:37 Dose: 50 mcg Lisinopril (Lisinopril 20 Mg Tab) 20 mg PO BID [facility] Stop: 10/30/23 20:59 Last Admin: 10/01/23 09:17 Dose: 20 mg Memantine (Memantine Hcl 5 Mg Tab) 5 mg PO BID [facility] Stop: 10/30/23 20:59 Last Admin: 10/01/23 09:17 Dose: 5 mg Metoprolol Succinate (Metoprolol Succ 25mg Ext Rel Tab) 25 mg PO DAILY [facility] Stop: 10/31/23 08:59 Last Admin: 10/01/23 09:17 Dose: 25 mg Miscellaneous Information (Pharmacist Discharge Med Rec Consult) 1 each N/A UD PRN PRN Reason: Consult Stop: 10/30/23 13:06 Simvastatin (Simvastatin 20 Mg Tab) 20 mg PO HS [facility] Stop: 10/30/23 20:59 Last Admin: 09/30/23 20:05 Dose: 20 mg Tamsulosin HCl (Tamsulosin Hcl 0.4 Mg Cap) 0.4 mg PO DAILY [facility] Stop: 10/31/23 08:59 Last Admin: 10/01/23 09:17 Dose: 0.4 mg
--- NOTE | 2023-10-01 17:25 | Cardiology Progress Note ---
Date of Service October 01, 2023 Assessment & Plan (1) Pacemaker malfunction: Plan: Patient with history of dual-chamber permanent pacemaker placed 08/07/2023 [place] [facility]. Device includes an [employer] medical pacemaker generator and RA lead and a [employer] ic left bundle lead and is not MRI compatible. The device was interrogated 09/30/22 and the the left bundle (RV) lead is undersensing the R waves resulting in an inappropriate pacing spike after the Q RS complex. Otherwise the lead is functioning fine and will capture if needed. Fortunately pt does not need ventricular pacing , only atrial pacing. The R waves are very low on the device. Plan for attempt of for reprogramming with [employer] union representative and EP available on 10/03/23. (2) Sick sinus syndrome: Plan: s/p ppm 08/06/23 device interrogated see above (3) Atrial fibrillation: Plan: Continue metoprolol, amiodarone, Eliquis. (4) HTN (hypertension): Plan: Continue lisinopril, norvasc metoprol (5) Stroke-like symptoms: Plan: -pt can not have an MRI due to his pacemaker being a mixed company (6) Dyslipidemia: Plan: -Continue simvastatin QHS (7) Abnormal ECG: Plan: the pacemaker is undersensing the r waves resulting in a pacing spike after the QRS (8) Vascular dementia: Plan: -Continue Namenda and Donepezil (9) Carotid atherosclerosis: (10) S/P placement of cardiac pacemaker: Admission and Anticipated Discharge Date Admission Date: September 30, 2023 Subjective Pt seen in follow up . Family including spouse at the bedside. Physical Exam Constitutional: no acute distress poor historian Respiratory: normal respiratory effort, lungs clear to auscultation Cardiovascular: Rate/Rhythm: regular rhythm Heart Sounds: + murmur (1/6 SM ) Vessels: no JVD Neurologic: poor historian. Moves all 4 extremities. Results & Data Vital Signs (Past 12 Hours) Vital Signs Temp Pulse Pulse Resp BP BP Pulse Ox 10/01/23 17:06 36.6 C 60 19 108/53 L 95 10/01/23 15:08 63 10/01/23 12:03 36.4 C L 60 18 119/60 98 10/01/23 07:39 36.6 C 77 18 175/80 H 95 10/01/23 07:14 10/01/23 05:58 60 O2 Del Method 10/01/23 17:06 Room Air 10/01/23 15:08 10/01/23 12:03 Room Air 10/01/23 07:39 Room Air 10/01/23 07:14 Room Air 10/01/23 05:58 Laboratory Results Coagulation 10/01/23 Range/Units 05:24 PT 11.6 (9.0-12.0) Seconds Lipids 10/01/23 Range/Units 05:24 Triglycerides 73 (0-150) mg/dl Cholesterol 126 (0-200) mg/dl HDL Cholesterol 61 mg/dl Cholesterol/HDL Ratio 2.1 (0-5) CBC 10/01/23 Range/Units 05:24 WBC 4.58 L (4.8-10.8) K/ul RBC 4.33 L (4.70-6.10) M/uL Hgb 12.6 L (14.0-18.0) g/dl Hct 38.1 L (42.0-52.0) % Plt Count 106 L (130-400) K/uL Neut # (Auto) 2.81 (1.40-6.50) K/uL Lymph # (Auto) 1.19 L (1.20-3.40) K/uL Ramsey # (Auto) 0.38 (0.11-0.59) K/uL Eos # (Auto) 0.16 (0.00-0.50) K/uL Baso # (Auto) 0.02 (0.00-0.20) K/uL Comprehensive Metabolic Panel 10/01/23 Range/Units 05:24 Sodium 143 (136-145) mmol/L Potassium 3.7 (3.5-5.1) mmol/L Chloride 107 (98-107) mmol/L Carbon Dioxide 28 (21-32) mmol/L BUN 18 (6-23) mg/dl Creatinine 0.84 (0.6-1.4) mg/dl Glucose 79 (70-99(Fasting)) mg/dl Calcium 9.5 (8.6-10.3) mg/dl Diagnostic Findings Echo reveals normal LVEF, 55-60 percent: Mild aortic valve stenosis.
[2023-10-01] MEDS: SIMVASTATIN 20 MG TAB PO SCH (20:35)
[2023-10-02] MEDS: LEVOTHYROXINE SODIUM 50 MCG TABLET PO SCH (06:14)
[2023-10-02 06:15] LABS: Basophils # (auto) 0.02 K/uL (0.00-0.20); Basophils % (auto) 0.5 %; Eosinophils # (auto) 0.17 K/uL (0.00-0.50); Eosinophils % (auto) 4.1 %; Hematocrit (blood only) 34.1 % (42.0-52.0); Hemoglobin 11.7 g/dl (14.0-18.0); Immature Granulocytes # (auto) 0.01 K/uL (0.01-0.20); Immature Granulocytes % (auto) 0.2 %; Lymphocytes # (auto) 0.93 K/uL (1.20-3.40); Lymphocytes % (auto) 22.4 %; Mean Corpuscular Hemoglobin 29.4 pg (25.0-34.0); Mean Corpuscular Hgb Conc 34.3 g/dL (32.0-36.0); Mean Corpuscular Volume 85.7 fL (80.0-100.0); Mean Platelet Volume 10.2 fL (9.4-12.4); Monocytes # (auto) 0.33 K/uL (0.11-0.59); Neutrophils # (auto) 2.69 K/uL (1.40-6.50); Neutrophils % (auto) 64.8 %; Platelet Count 101 K/uL (130-400); RDW Coefficient of Variation 12.4 % (11.5-14.5); RDW Standard Deviation 38.9 fL (36.4-46.3); Red Blood Count 3.98 M/uL (4.70-6.10); White Blood Count 4.15 K/ul (4.8-10.8)
[2023-10-02 06:28] LABS: Anion Gap 5 (3-11); BUN Creatinine Ratio 18.5 (10-20); Blood Urea Nitrogen 15 mg/dl (6-23); Calcium 9.2 mg/dl (8.6-10.3); Carbon Dioxide 29 mmol/L (21-32); Chloride 104 mmol/L (98-107); Est GFR (African American) 93.3 ml/min; Est GFR (Non-African American) 80.5 ml/min; Glucose 85 mg/dl (70-99(Fasting)); Magnesium 1.9 mg/dl (1.7-2.4); Phosphorus 3.4 mg/dl (2.5-4.9); Potassium 3.7 mmol/L (3.5-5.1); Sodium 138 mmol/L (136-145)
[2023-10-02 06:55] LABS: INR 1.1 (0.9-1.1); Prothrombin Time 11.9 Seconds (9.0-12.0)
[2023-10-02] MEDS: MEMANTINE HCL 5 MG TAB PO SCH ×2 (09:30→20:57)
[2023-10-02] MEDS: lisinopril 20 MG TAB PO SCH ×2 (09:30→20:57)
[2023-10-02] MEDS: amLODIPine BESYLATE 5 MG TAB PO SCH (09:30)
[2023-10-02] MEDS: APIXABAN 2.5 MG TAB PO SCH ×2 (09:30→20:56)
[2023-10-02] MEDS: AMIODARONE 200 MG TAB PO SCH (09:31)
[2023-10-02] MEDS: DONEPEZIL HCL 10 MG TAB PO SCH (09:31)
[2023-10-02] MEDS: TAMSULOSIN HCL 0.4 MG CAP PO SCH (09:31)
[2023-10-02] MEDS: METOPROLOL SUCC 25MG EXT REL TAB PO SCH (09:31)
[2023-10-02] MEDS: FINASTERIDE 5 MG TAB PO SCH (09:32)
--- NOTE | 2023-10-02 14:08 | Cardiology Progress Note ---
Date of Service October 02, 2023 Assessment & Plan (1) Pacemaker malfunction: Plan: Patient with history of dual-chamber permanent pacemaker placed 08/07/[address] Timo Wen. Device includes an [employer] medical pacemaker generator and [employer] RA lead and a Medtronic left bundle lead and is not MRI compatible. The device was interrogated 09/30/22 and the the left bundle (RV) lead is undersensing the R waves resulting in an inappropriate pacing spike after the QRS complex. Otherwise the lead is functioning fine and will capture if needed. Fortunately pt does not need ventricular pacing , only atrial pacing. The R waves are very low on the device. Plan for attempt of for reprogramming with [employer] access service representative and EP available on 10/03/23. (2) Sick sinus syndrome: Plan: s/p ppm 08/06/23 device interrogated see above (3) Atrial fibrillation: Plan: Continue metoprolol, amiodarone, Eliquis. (4) HTN (hypertension): Plan: Continue lisinopril, norvasc metoprol (5) Stroke-like symptoms: Plan: -pt can not have an MRI due to his pacemaker being a mixed company (6) Dyslipidemia: Plan: -Continue simvastatin QHS (7) Abnormal ECG: Plan: the pacemaker is undersensing the r waves resulting in a pacing spike after the QRS Admission and Anticipated Discharge Date Admission Date: September 30, 2023 Subjective Patient seen in cardiology follow-up. No acute complaints. Ongoing cognitive impairment noted acuity for synchronicity difficult to determine. Telemetry reveals sinus rhythm in the 60s. Artifact noted on telemetry likely due to the patient's tremor. Yen catheter in place draining clear yellow urine. Physical Exam Constitutional: no acute distress Respiratory: normal respiratory effort, lungs clear to auscultation Cardiovascular: Rate/Rhythm: regular rhythm Heart Sounds: + murmur (1/6 SM ) Vessels: no JVD Chest (Breasts): Chest: + pacemaker (Left infraclavicular pacemaker pocket clean dry and intact, no erythema) Neurologic: Moves all 4 extremities, tremor, cognitive impairment Results & Data Vital Signs (Past 12 Hours) Vital Signs Temp Pulse Resp BP BP Pulse Ox O2 Del Method 10/02/23 11:10 37.2 C 61 18 115/57 L 96 Room Air 10/02/23 08:00 Room Air 10/02/23 07:44 36.6 C 83 18 186/77 H 96 Room Air
[2023-10-02] MEDS: SIMVASTATIN 20 MG TAB PO SCH (20:56)
[2023-10-02] MEDS: D5W AND 1/2NSS 1,000 ML IV SCH (23:00)
[2023-10-03] MEDS: LEVOTHYROXINE SODIUM 50 MCG TABLET PO SCH (05:33)
[2023-10-03 06:26] LABS: Anion Gap 3 (3-11); BUN Creatinine Ratio 17.1 (10-20); Blood Urea Nitrogen 14 mg/dl (6-23); Calcium 8.7 mg/dl (8.6-10.3); Carbon Dioxide 31 mmol/L (21-32); Chloride 105 mmol/L (98-107); Est GFR (African American) 92.8 ml/min; Est GFR (Non-African American) 80.1 ml/min; Glucose 108 mg/dl (70-99(Fasting)); Potassium 3.6 mmol/L (3.5-5.1); Sodium 139 mmol/L (136-145)
[2023-10-03 06:34] LABS: INR 1.1 (0.9-1.1); Prothrombin Time 12.2 Seconds (9.0-12.0)
[2023-10-03 06:38] LABS: Basophils # (auto) 0.01 K/uL (0.00-0.20); Basophils % (auto) 0.2 %; Eosinophils % (auto) 2.4 %; Hematocrit (blood only) 34.8 % (42.0-52.0); Hemoglobin 11.6 g/dl (14.0-18.0); Immature Granulocytes # (auto) 0.01 K/uL (0.01-0.20); Immature Granulocytes % (auto) 0.2 %; Lymphocytes # (auto) 1.01 K/uL (1.20-3.40); Lymphocytes % (auto) 24.2 %; Mean Corpuscular Hemoglobin 29.1 pg (25.0-34.0); Mean Corpuscular Hgb Conc 33.3 g/dL (32.0-36.0); Mean Corpuscular Volume 87.2 fL (80.0-100.0); Monocytes # (auto) 0.41 K/uL (0.11-0.59); Monocytes % (auto) 9.8 %; Neutrophils # (auto) 2.64 K/uL (1.40-6.50); Neutrophils % (auto) 63.2 %; Platelet Count 79 K/uL (130-400); Platelet Estimate Decreased (Normal); RDW Coefficient of Variation 12.2 % (11.5-14.5); RDW Standard Deviation 39.2 fL (36.4-46.3); Red Blood Count 3.99 M/uL (4.70-6.10); White Blood Count 4.18 K/ul (4.8-10.8)
[2023-10-03] MEDS: FINASTERIDE 5 MG TAB PO SCH (08:42)
[2023-10-03] MEDS: MEMANTINE HCL 5 MG TAB PO SCH ×2 (08:42→20:25)
[2023-10-03] MEDS: APIXABAN 2.5 MG TAB PO SCH ×2 (08:42→20:25)
[2023-10-03] MEDS: lisinopril 20 MG TAB PO SCH ×2 (08:42→20:25)
[2023-10-03] MEDS: DONEPEZIL HCL 10 MG TAB PO SCH (08:42)
[2023-10-03] MEDS: TAMSULOSIN HCL 0.4 MG CAP PO SCH (08:43)
[2023-10-03] MEDS: METOPROLOL SUCC 25MG EXT REL TAB PO SCH (08:43)
[2023-10-03] MEDS: amLODIPine BESYLATE 5 MG TAB PO SCH (08:43)
[2023-10-03] MEDS: AMIODARONE 200 MG TAB PO SCH (08:43)
--- NOTE | 2023-10-03 09:35 | CT Scan Report ---
CT OF THE HEAD WITHOUT CONTRAST CLINICAL HISTORY: Confusion. COMPARISON STUDY: Head CT October 01, 2023. CTA of the head September 28, 2023. CT DOSE: 547.75 mGy.cm TECHNIQUE: Helical axial images of the head were obtained without IV contrast. Automated exposure con trol was utilized for the study. A dose lowering technique was utilized adhering to the principles o f ALARA. FINDINGS: No acute intracranial hemorrhage, midline shift or mass effect is present. Atrophy is again noted. White matter hypodensities are unchanged and favor small vessel disease. The ventricular syst em is unremarkable. The basal cisterns are patent. No extra-axial collections are present. There are no findings to suggest acute dural sinus thrombosis or acute territorial infarct. No significant calv arial abnormalities are present. Visualized portions of the sinuses and mastoid air cells are clear. IMPRESSION: No acute intracranial findings. No change in appearance of the brain. ACT 112: Negative or not required by law. Electronically signed by: Constantino Treadwell M.D. 10/03/2023 9:33 AM
[2023-10-03] MEDS: D5W AND 1/2NSS 1,000 ML IV SCH (16:00)
--- NOTE | 2023-10-03 16:32 | Hospitalist Progress Note ---
Date of Service October 03, 2023 Assessment & Plan (1) Stroke-like symptoms: Plan: Likely due to pacemaker malfunction Less likely TIA/CVA Could not obtain MRI due to pacemaker incompatibility -CT head X2 showed no acute intracranial findings --ECHO: Normal left ventricular wall thickness. Left ventricle wall motion normal. EF 55 to 60%. Aortic valve is trileaflet. Focal calcification of the left coronary cusp of the aortic valve. Mild valvular aortic stenosis. No significant aortic regurgitation. --CTA head and neck showed no significant stenosis. Continue home aspirin Also on Eliquis --Mental status back to baseline per family Continue PT OT (2) Abnormal ECG: Plan: Pacemaker malfunction--POA Device interrogation on 09/30/2022 Reprogramming by about underwriting sales representative on 10/03/2023 Appreciate cardiology input Dysphagia Likely due to large anterior osteophyte --Video Swallow: Several episodes of a small amount of silent tracheal aspiration with thin liquids and nectar thick liquids. No aspiration with pudding or cracker and pudding consistencies.Moderate residuals within the vallecula and piriform sinuses with multiple consistencies. Large anterior oste ophyte within the mid cervical spine which indent the posterior hypopharynx and proximal esophagus and increase retention of several consistencies. -- Aspiration precautions Appreciate speech therapy recommendations Discussed risks and benefits of permissive aspiration with current diet Family agrees with current management Advised to follow-up with orthopedic spine as outpatient Urinary retention H/O BPH Continue home medications Voiding trial today May need follow-up with urology as outpatient (3) Vascular dementia: Plan: -Continue Namenda and Donepezil -Ongoing dementia without any acute confusion (4) HTN (hypertension): Plan: -Currently stable -Continue home medications (5) Dyslipidemia: Plan: -Currently simvastatin Lipid panel within normal limits (6) Carotid atherosclerosis: Plan: -Noted on CTA of the neck per transfer records from [place] [facility] -No significant stenosis to warrant urgent treatment Continue aspirin, statin (7) Atrial fibrillation: Plan: Continue amiodarone, metoprolol, Eliquis (8) S/P placement of cardiac pacemaker: Plan: Management as above (9) Hypothyroidism: Plan: -Continue levothyroxine (10) BPH (benign prostatic hyperplasia): Plan: -Continue finasteride, tamsulosin Plan DVT prophylaxis On Eliquis CODE STATUS DNR/DNI Disposition May need rehab Admission and Anticipated Discharge Date Admission Date: September 30, 2023 Subjective Patient is seen and examined at bedside Poor historian secondary to dementia Offers no new complaints Had pacemaker reprogrammed today Updated patient's family at bedside Denies any chest pain, dyspnea, dizziness, nausea, vomiting, abdominal pain Review of Systems Review of Systems: All systems reviewed & are unremarkable except as noted in Subjective Physical Exam Physical Exam: Physical Exam: Vitals signs as noted above General Appearance: Thin, frail, chronically appearing, no apparent distress Head: normocephalic, Atraumatic Eyes: normal inspection, EOMI Neck: supple, Trachea midline Respiratory/Chest: Normal breath sounds, CTA, + Pacer, No accessory muscle use Cardiovascular: S1, S2, No murmur Abdomen/GI:Soft, Non tender, Bowel sounds present Extremities/Musculoskeletal:normal inspection, no edema Neurologic/Psych:AAOX2, grossly no focal neurological deficits, +Dementia Skin: normal color, warm Results & Data Results & Data Vital Signs (Past 12 Hours) Vital Signs Temp Pulse Resp BP Pulse Ox O2 Del Method 10/03/23 15:37 36.6 C 60 20 118/63 96 Room Air 10/03/23 11:19 36.9 C 111 H 20 137/74 96 Room Air 10/03/23 08:29 36.7 C 60 20 135/66 97 Room Air 10/03/23 08:00 Room Air Laboratory Results Short CBC 10/03/23 Range/Units 05:26 WBC 4.18 L (4.8-10.8) K/ul Hgb 11.6 L (14.0-18.0) g/dl Hct 34.8 L (42.0-52.0) % Plt Count 79 L (130-400) K/uL BMP 10/03/23 05:26 Sodium 139 Potassium 3.6 Chloride 105 Carbon Dioxide 31 BUN 14 Creatinine 0.82 Glucose 108 H Calcium 8.7
--- NOTE | 2023-10-03 16:59 | Cardiology Progress Note ---
Date of Service October 03, 2023 Assessment & Plan (1) Pacemaker malfunction: Plan: Patient with history of dual-chamber permanent pacemaker placed 08/07/[address] Timo Wen. Device includes an [employer] medical pacemaker generator and [employer] RA lead and a Medtronic left bundle lead and is not MRI compatible. The device was interrogated 09/30/22 and the the left bundle (RV) lead is undersensing the R waves resulting in an inappropriate pacing spike after the QRS complex. Otherwise the lead is functioning fine and will capture if needed. Fortunately pt does not need ventricular pacing , only atrial pacing. The R waves are very low on the device. Plan for attempt of for reprogramming with [employer] advertising account representative and EP available on 10/03/23. Note above findings on pacemaker function should not result in hemodynamic effect (2) Sick sinus syndrome: Plan: s/p ppm 08/06/23 device interrogated see above (3) Atrial fibrillation: Plan: Continue metoprolol, amiodarone, Eliquis. (4) HTN (hypertension): Plan: Continue lisinopril, norvasc metoprol (5) Stroke-like symptoms: Plan: -pt can not have an MRI due to his pacemaker being a mixed company leads/device Question acute delirium (6) Dyslipidemia: Plan: -Continue simvastatin QHS (7) Abnormal ECG: Plan: the pacemaker is undersensing the r waves resulting in a pacing spike after the QRS Plan Patient admitted with hypotension and possible stroke like symptoms Currently improved Concerns regarding pacemaker malfunction noted with diminished ventricular sensing and additional ventricular pacing Of note findings did not result in hemodynamically significant cardiac dysfunction Pacemaker malfunction likely incidentally noted via EKG and telemetry Pacemaker reprogrammed today to increase ventricular sensing Patient predominantly atrial paced Admission and Anticipated Discharge Date Admission Date: September 30, 2023 Subjective Patient seen and examined, sitting out of bed in chair today. Family notes patient much brighter No acute cardiac complaints. Pacemaker reprogrammed to increase sensing Physical Exam Constitutional: no acute distress Respiratory: normal respiratory effort, lungs clear to auscultation Cardiovascular: Rate/Rhythm: regular rhythm Heart Sounds: + murmur (1/6 SM ) Vessels: no JVD Chest (Breasts): Chest: + pacemaker (Left infraclavicular pacemaker pocket clean dry and intact, no erythema) Results & Data Vital Signs (Past 12 Hours) Vital Signs Temp Pulse Resp BP Pulse Ox O2 Del Method 10/03/23 15:37 36.6 C 60 20 118/63 96 Room Air 10/03/23 11:19 36.9 C 111 H 20 137/74 96 Room Air 10/03/23 08:29 36.7 C 60 20 135/66 97 Room Air 10/03/23 08:00 Room Air Laboratory Results Laboratory Results - last 24 hr 10/03/23 05:26 WBC 4.18 L RBC 3.99 L Hgb 11.6 L Hct 34.8 L MCV 87.2 MCH 29.1 MCHC 33.3 RDW Std Deviation 39.2 RDW Coeff of Isa 12.2 Plt Count 79 L MPV 10.0 Immature Gran % (Auto) 0.2 Neut % (Auto) 63.2 Lymph % (Auto) 24.2 [place] % (Auto) 9.8 Eos % (Auto) 2.4 Baso % (Auto) 0.2 Neut # (Auto) 2.64 Lymph # (Auto) 1.01 L [place] # (Auto) 0.41 Eos # (Auto) 0.10 Baso # (Auto) 0.01 Immature Gran # (Auto) 0.01 Platelet Estimate Decreased L PT 12.2 H INR 1.1 Sodium 139 Potassium 3.6 Chloride 105 Carbon Dioxide 31 Anion Gap 3 BUN 14 Creatinine 0.82 Est Cr Clr Drug Dosing Not Reportable Est GFR ( Amer) 92.8 Est GFR (Non-Af Amer) 80.1 BUN/Creatinine Ratio 17.1 Glucose 108 H Calcium 8.7 Magnesium 2.0
[2023-10-03] MEDS: SIMVASTATIN 20 MG TAB PO SCH (20:24)
--- NOTE | 2023-10-04 05:49 | Communication Note ---
Date of Service: October 04, 2023 Patient with 2 episodes of urinary retention overnight. Bladder residual greater than 500 cc despite some spontaneous voiding. AP Recurrent urinary retention Reinsert Yen catheter
[2023-10-04] MEDS: LEVOTHYROXINE SODIUM 50 MCG TABLET PO SCH (05:50)
[2023-10-04 06:21] LABS: Hematocrit (blood only) 40.8 % (42.0-52.0); Hemoglobin 13.6 g/dl (14.0-18.0); Mean Corpuscular Hgb Conc 33.3 g/dL (32.0-36.0); Mean Platelet Volume 11.1 fL (9.4-12.4); Platelet Count 101 K/uL (130-400); RDW Coefficient of Variation 12.4 % (11.5-14.5); RDW Standard Deviation 39.4 fL (36.4-46.3); Red Blood Count 4.69 M/uL (4.70-6.10); White Blood Count 4.45 K/ul (4.8-10.8)
[2023-10-04 06:37] LABS: Anion Gap 7 (3-11); BUN Creatinine Ratio 15.3 (10-20); Blood Urea Nitrogen 11 mg/dl (6-23); Calcium 9.3 mg/dl (8.6-10.3); Carbon Dioxide 29 mmol/L (21-32); Chloride 105 mmol/L (98-107); Est GFR (African American) 97.9 ml/min; Est GFR (Non-African American) 84.5 ml/min; Glucose 99 mg/dl (70-99(Fasting)); Potassium 3.5 mmol/L (3.5-5.1); Sodium 141 mmol/L (136-145)
[2023-10-04] MEDS: lisinopril 20 MG TAB PO SCH (08:43)
[2023-10-04] MEDS: amLODIPine BESYLATE 5 MG TAB PO SCH (08:43)
[2023-10-04] MEDS: FINASTERIDE 5 MG TAB PO SCH (08:43)
[2023-10-04] MEDS: AMIODARONE 200 MG TAB PO SCH (08:43)
[2023-10-04] MEDS: TAMSULOSIN HCL 0.4 MG CAP PO SCH (08:43)
[2023-10-04] MEDS: MEMANTINE HCL 5 MG TAB PO SCH (08:43)
[2023-10-04] MEDS: DONEPEZIL HCL 10 MG TAB PO SCH (08:43)
[2023-10-04] MEDS: APIXABAN 2.5 MG TAB PO SCH (08:43)
[2023-10-04] MEDS: METOPROLOL SUCC 25MG EXT REL TAB PO SCH (08:44)
--- NOTE | 2023-10-04 11:38 | Cardiology Progress Note ---
Date of Service October 04, 2023 Assessment & Plan (1) Pacemaker malfunction: Plan: Patient with history of dual-chamber permanent pacemaker placed 08/07/[address] Timo Wen. Device includes an [employer] medical pacemaker generator and [employer] RA lead and a Medtronic left bundle lead and is not MRI compatible. The device was interrogated 09/30/22 and the the left bundle (RV) lead is undersensing the R waves resulting in an inappropriate pacing spike after the QRS complex. Otherwise the lead is functioning fine and will capture if needed. Fortunately pt does not need ventricular pacing , only atrial pacing. The R waves are very low on the device. Plan for attempt of for reprogramming with [employer] civil rights representative and EP available on 10/03/23. Note above findings on pacemaker function should not result in hemodynamic effect (2) Sick sinus syndrome: Plan: s/p ppm 08/06/23 device interrogated see above (3) Atrial fibrillation: Plan: Continue metoprolol, amiodarone, Eliquis. (4) HTN (hypertension): Plan: Continue lisinopril, norvasc metoprol (5) Stroke-like symptoms: Plan: -pt can not have an MRI due to his pacemaker being a mixed company leads/device Question acute delirium (6) Dyslipidemia: Plan: -Continue simvastatin QHS (7) Abnormal ECG: Plan: the pacemaker is undersensing the r waves resulting in a pacing spike after the QRS Plan Patient admitted with hypotension and possible stroke like symptoms Currently improved Concerns regarding pacemaker malfunction noted with diminished ventricular sensing and additional ventricular pacing Of note findings did not result in hemodynamically significant cardiac dysfunction or arrhythmia Pacemaker malfunction likely incidentally noted via EKG and telemetry Pacemaker reprogrammed to increase ventricular sensing Patient predominantly atrial paced Pacemaker functioning appropriately and no further arrhythmias Would continue current medical regimen as ordered with reduced dose of amiodarone once per day Potassium supplement hemoglobins per day given mild hypokalemia Contact with any further questions Admission and Anticipated Discharge Date Admission Date: September 30, 2023 Subjective Patient was seen and examined, chart, medications, telemetry reviewed. No arrhythmias on telemetry Pacemaker functioning appropriate Difficulties with persistent urinary retention noted with Yen catheter reinserted last evening Physical Exam Constitutional: no acute distress Respiratory: normal respiratory effort, lungs clear to auscultation Cardiovascular: Rate/Rhythm: regular rhythm Heart Sounds: + murmur (1/6 SM ) Vessels: no JVD Chest (Breasts): Chest: + pacemaker (Left infraclavicular pacemaker pocket clean dry and intact, no erythema) Results & Data Vital Signs (Past 12 Hours) Vital Signs Temp Pulse Pulse Resp BP Pulse Ox O2 Del Method 10/04/23 11:36 36.6 C 63 20 127/64 99 Room Air 10/04/23 07:56 62 10/04/23 07:50 36.4 C L 63 20 121/60 97 Room Air 10/04/23 03:59 60 10/04/23 02:58 36.1 C L 68 18 150/69 H 98 Room Air Laboratory Results Laboratory Results - last 24 hr 10/04/23 05:41 WBC 4.45 L RBC 4.69 L Hgb 13.6 L Hct 40.8 L MCV 87.0 MCH 29.0 MCHC 33.3 RDW Std Deviation 39.4 RDW Coeff of Isa 12.4 Plt Count 101 L MPV 11.1 Sodium 141 Potassium 3.5 Chloride 105 Carbon Dioxide 29 Anion Gap 7 BUN 11 Creatinine 0.72 Est Cr Clr Drug Dosing Not Reportable Est GFR ( Amer) 97.9 Est GFR (Non-Af Amer) 84.5 BUN/Creatinine Ratio 15.3 Glucose 99 Calcium 9.3
[2023-10-04] MEDS ORDERED: POTASSIUM CHLORIDE 10 MEQ TABCR PO SCH (12:00)
--- NOTE | 2023-10-04 13:55 | Hospitalist Progress Note ---
Date of Service October 04, 2023 Assessment & Plan (1) Stroke-like symptoms: Plan: Stroke like symptoms Unsure if due to pacemaker malfunction Less likely TIA/CVA Could not obtain MRI due to pacemaker incompatibility -CT head X2 showed no acute intracranial findings --ECHO: Normal left ventricular wall thickness. Left ventricle wall motion normal. EF 55 to 60%. Aortic valve is trileaflet. Focal calcification of the left coronary cusp of the aortic valve. Mild valvular aortic stenosis. No significant aortic regurgitation. --CTA head and neck showed no significant stenosis. Continue home aspirin Also on Eliquis --Mental status back to baseline per family Continue PT OT Advised to follow-up with neurology if recurrence of symptoms. Patient's understands and agrees with management Plan to discharge home with home health (2) Abnormal ECG: Plan: Pacemaker malfunction--POA Device interrogation on 09/30/2022 Reprogramming by about patient access representative on 10/03/2023 Appreciate cardiology input Dysphagia Likely due to large anterior osteophyte --Video Swallow: Several episodes of a small amount of silent tracheal aspiration with thin liquids and nectar thick liquids. No aspiration with pudding or cracker and pudding consistencies.Moderate residuals within the vallecula and piriform sinuses with multiple consistencies. 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 -- Aspiration precautions Appreciate speech therapy recommendations Discussed risks and benefits of permissive aspiration with current diet Family agrees with current management Advised to follow-up with orthopedic spine as outpatient Urinary retention H/O BPH Continue home medications Failed Voiding trial Needs follow-up with urology as outpatient Continue Yen catheter (3) Vascular dementia: Plan: -Continue Namenda and Donepezil -Ongoing dementia without any acute confusion (4) HTN (hypertension): Plan: -Currently stable -Continue home medications (5) Dyslipidemia: Plan: -Currently simvastatin Lipid panel within normal limits (6) Carotid atherosclerosis: Plan: -Noted on CTA of the neck per transfer records from [place] [facility] -No significant stenosis to warrant urgent treatment Continue aspirin, statin (7) Atrial fibrillation: Plan: Continue amiodarone, metoprolol, Eliquis (8) S/P placement of cardiac pacemaker: Plan: Management as above (9) Hypothyroidism: Plan: -Continue levothyroxine (10) BPH (benign prostatic hyperplasia): Plan: -Continue finasteride, tamsulosin Plan DVT prophylaxis On Eliquis CODE STATUS DNR/DNI Disposition Home with home health Admission and Anticipated Discharge Date Admission Date: September 30, 2023 Subjective Patient is seen and examined at bedside Poor historian secondary to dementia No new complaints Prefers to be discharged home today Discussed with cardiology today Updated patient's over the phone Denies any chest pain, dyspnea, dizziness, nausea, vomiting, abdominal pain Review of Systems Review of Systems: All systems reviewed & are unremarkable except as noted in Subjective Physical Exam Physical Exam: Physical Exam: Vitals signs as noted above General Appearance: Thin, frail, chronically appearing, no apparent distress Head: normocephalic, Atraumatic Eyes: normal inspection, EOMI Neck: supple, Trachea midline Respiratory/Chest: Normal breath sounds, CTA, + Pacer, No accessory muscle use Cardiovascular: S1, S2, No murmur Abdomen/GI:Soft, Non tender, Bowel sounds present Extremities/Musculoskeletal:normal inspection, no edema Neurologic/Psych:AAOX2, grossly no focal neurological deficits, +Dementia Skin: normal color, warm Results & Data Results & Data Vital Signs (Past 12 Hours) Vital Signs Temp Pulse Pulse Resp BP Pulse Ox O2 Del Method 10/04/23 11:36 36.6 C 63 20 127/64 99 Room Air 10/04/23 07:56 62 10/04/23 07:50 36.4 C L 63 20 121/60 97 Room Air 10/04/23 03:59 60 10/04/23 02:58 36.1 C L 68 18 150/69 H 98 Room Air Laboratory Results Short CBC 10/04/23 Range/Units 05:41 WBC 4.45 L (4.8-10.8) K/ul Hgb 13.6 L (14.0-18.0) g/dl Hct 40.8 L (42.0-52.0) % Plt Count 101 L (130-400) K/uL BMP 10/04/23 05:41 Sodium 141 Potassium 3.5 Chloride 105 Carbon Dioxide 29 BUN 11 Creatinine 0.72 Glucose 99 Calcium 9.3
--- NOTE | 2023-10-04 14:51 | Discharge Summary ---
Date of Service October 04, 2023 Admission HPI Per Admitting Provider Александр Jhony Mcfarland is an 88 year old male with a PMH significant for Afib (on Eliuis), SVT/SSS S/P dual chamber pacemaker placement on 08/06/2023, Vascular dementia, HTN, subclinical hypothyroidism, hyperlipidemia, BPH, who was transferred to [facility] from [facility] for further evaluation of stroke- like symptoms. History was obtained through discussions with the patient/family at bedside and the transfer documentation provided. Between [id number] on 09/28/23 the patient sat at the kitchen table in preparation to eat lunch. His sat down next to him and noticed that he was not responding to her questions and was starring off. She denies seeing other focal neurologic defects such as facial droop, increased slurred speech compared to baseline, and unilateral weakness. Due to the ongoing episode she called EMS who responded approximately 30 min after the episode began. When EMS arrived the patient was responding appropriately and acting himself per family. On arrival to the [facility] ED he was noted to be stable and neurologically intact. Labs including CBC, CMP, high sen trop, and UA were unremarkable. ECG was read as an atrial paced rhythm with possible right ventricular conduction delay. CT head/brain wo con was read as negative for acute findings. CT head/brain w/wo con was read as showing mild atherosclerotic disease without significant stenosis. CTA of the neck was read as showing Moderate atherosclerotic changes noted in the aortic arch and the vessels of the neck in the form of densely calcified plaques. Major changes are noted at the levels of carotid bulbs as mentioned but normal opacification is noted of both internal carotid vessels with almost 50% luminal narrowing and contrast seen opacifying the distal course as well. Both subclavian arteries show atheromatous changes at origin. Left subclavian shows a segment of 7.8 mm segment with almost 70-80% narrowing, however, left vertebral artery shows normal opacification and caliber. Right vertebral artery is unremarkable." Per the transfer documentation, the ED provider spoke with a Dr. Robb of [facility] who recommended loading the patient with aspirin and obtaining an MRI of the brain for further evaluation. The patient was loaded with aspiring and did continue to receive his normal home medications including Eliquis, simvastatin, metoprolol, amiodarone, amlodipine, and lisinopril. They reportedly did not have the capability to perform the MRI at [facility] and the patient was reportedly accepted to [facility], but they could not get the MRI until 10/01. The patient was subsequently transferred to [facility] under the [facility] Hospitalist team, despite the patient being a [facility] Patient; this was apparently unknown at the time of transfer acceptance. At the time of the exam the patient was lying in bed in no acute distress with his and Son sitting bedside. History was mainly obtained from the patient's family with his hx of dementia. They confirm the above history and confirm that the patient is currently at his neurologic baseline. His neurologic baseline is reportedly alert and oriented to person, place, and event. He does slur his words at baseline and will take extra time to speak intermittently. He has never smoke and occasionally used alcohol in the past, but they deny significant alcohol use. His states that the patient was recently started on 200 Amiodarone BID with plans to taper to 200 mg Daily starting on 10/02/23 after a recent abnormal heart rhythm noted on his pacemaker. The patient currently has zero complaints. They deny recent fever, chills, chest pain, cough, SOB, abd pain, nausea,vomiting, diarrhea, dysuria, hematuria, melena, LE swelling, and recent trauma. They confirm he is a DNR/DNI. [facility] Hospitalist team spoke with the [facility] Hospitalist team, appreciate their assistance. They are in agreement with taking over care of the patient on 10/01/23 as they were not involved in discussions for the initial transfer from [facility]. Please refer to Dr. Loredo's attestation for any changes to the treatment plan Principal Diagnosis Stroke-like symptoms Pacemaker malfunction Dysphagia Urinary retention Discharge Data Allergies Allergy/AdvReac Type Severity Reaction Status Date / Time No Known Allergies Allergy Unknown ? Verified 12/07/08 14:04 Consultations 09/30/23 14:38 Consult Cardiology Routine Procedures Performed Laboratory Results WBC 4.45 K/ul (4.8-10.8) L 10/04/23 05:41 RBC 4.69 M/uL (4.70-6.10) L 10/04/23 05:41 Hgb 13.6 g/dl (14.0-18.0) L 10/04/23 05:41 Hct 40.8 % (42.0-52.0) L 10/04/23 05:41 MCV 87.0 fL (80.0-100.0) 10/04/23 05:41 MCH 29.0 pg (25.0-34.0) 10/04/23 05:41 MCHC 33.3 g/dL (32.0-36.0) 10/04/23 05:41 RDW Std Deviation 39.4 fL (36.4-46.3) 10/04/23 05:41 RDW Coeff of Isa 12.4 % (11.5-14.5) 10/04/23 05:41 Plt Count 101 K/uL (130-400) L 10/04/23 05:41 MPV 11.1 fL (9.4-12.4) 10/04/23 05:41 Immature Gran % (Auto) 0.2 % 10/03/23 05:26 Neut % (Auto) 63.2 % 10/03/23 05:26 Lymph % (Auto) 24.2 % 10/03/23 05:26 Summers % (Auto) 9.8 % 10/03/23 05:26 Eos % (Auto) 2.4 % 10/03/23 05:26 Baso % (Auto) 0.2 % 10/03/23 05:26 Neut # (Auto) 2.64 K/uL (1.40-6.50) 10/03/23 05:26 Lymph # (Auto) 1.01 K/uL (1.20-3.40) L 10/03/23 05:26 Summers # (Auto) 0.41 K/uL (0.11-0.59) 10/03/23 05:26 Eos # (Auto) 0.10 K/uL (0.00-0.50) 10/03/23 05:26 Baso # (Auto) 0.01 K/uL (0.00-0.20) 10/03/23 05:26 Immature Gran # (Auto) 0.01 K/uL (0.01-0.20) 10/03/23 05:26 Platelet Estimate Decreased (Normal) L 10/03/23 05:26 PT 12.2 Seconds (9.0-12.0) H 10/03/23 05:26 INR 1.1 (0.9-1.1) 10/03/23 05:26 Sodium 141 mmol/L (136-145) 10/04/23 05:41 Potassium 3.5 mmol/L (3.5-5.1) 10/04/23 05:41 Chloride 105 mmol/L (98-107) 10/04/23 05:41 Carbon Dioxide 29 mmol/L (21-32) 10/04/23 05:41 Anion Gap 7 (3-11) 10/04/23 05:41 BUN 11 mg/dl (6-23) 10/04/23 05:41 Creatinine 0.72 mg/dl (0.6-1.4) 10/04/23 05:41 Est Cr Clr Drug Dosing Not Reportable 10/04/23 05:41 Est GFR ( Amer) 97.9 ml/min 10/04/23 05:41 Est GFR (Non-Af Amer) 84.5 ml/min 10/04/23 05:41 BUN/Creatinine Ratio 15.3 (10-20) 10/04/23 05:41 Glucose 99 mg/dl (70-99(Fasting)) 10/04/23 05:41 Estimat Average Glucose 105 mg/dl 10/01/23 05:24 Hemoglobin A1c 5.3 % (4.5-5.6) 10/01/23 05:24 Calcium 9.3 mg/dl (8.6-10.3) 10/04/23 05:41 Phosphorus 3.4 mg/dl (2.5-4.9) 10/02/23 05:19 Magnesium 2.0 mg/dl (1.7-2.4) 10/03/23 05:26 Total Bilirubin 0.6 mg/dl (0.2-1.0) 09/30/23 14:20 AST 25 U/L (13-39) 09/30/23 14:20 ALT 14 U/L (7-52) 09/30/23 14:20 Alkaline Phosphatase 82 U/L (34-104) 09/30/23 14:20 Total Protein 7.2 gm/dl (6.0-8.3) 09/30/23 14:20 Albumin 4.6 gm/dl (3.4-5.0) 09/30/23 14:20 Globulin 2.6 gm/dl (2.5-4.0) 09/30/23 14:20 Albumin/Globulin Ratio 1.8 (0.9-2) 09/30/23 14:20 Triglycerides 73 mg/dl (0-150) 10/01/23 05:24 Cholesterol 126 mg/dl (0-200) 10/01/23 05:24 LDL Cholesterol, Calc 50 mg/dl 10/01/23 05:24 VLDL Cholesterol, Calc 15 mg/dl (0-30) 10/01/23 05:24 HDL Cholesterol 61 mg/dl 10/01/23 05:24 Cholesterol/HDL Ratio 2.1 (0-5) 10/01/23 05:24 Urine Color Yellow 09/30/23 16:36 Urine Appearance Clear (Clear) 09/30/23 16:36 Urine pH 5.5 (4.5-7.5) 09/30/23 16:36 Ur Specific [place] 1.031 (1.000-1.030) H 09/30/23 16:36 Urine Protein Negative (Negative) 09/30/23 16:36 Urine Glucose (UA) Negative (Negative) 09/30/23 16:36 Urine Ketones 1+ (Negative) H 09/30/23 16:36 Urine Blood 2+ (Negative) H 09/30/23 16:36 Urine Nitrite Negative (Negative) 09/30/23 16:36 Urine Bilirubin Negative (Negative) 09/30/23 16:36 Urine Urobilinogen Negative (Negative) 09/30/23 16:36 Ur Leukocyte Esterase Negative (Negative) 09/30/23 16:36 Urine WBC (Auto) 1-5 /hpf (0-5) 09/30/23 16:36 Urine RBC (Auto) 5-10 /hpf (0-4) H 09/30/23 16:36 U Hyaline Cast (Auto) 1-5 /lpf (0-5) 09/30/23 16:36 U Epithel Cells (Auto) 0-5 /lpf (0-5) 09/30/23 16:36 Urine Bacteria (Auto) Negative (Negative) 09/30/23 16:36 Impressions Chest X-Ray 09/30/23 15:24 XR chest 1V portable CLINICAL HISTORY: admission ecg for transfer TECHNIQUE: Single frontal radiograph of the chest was obtained. Comparison: None available at the time of this dictation. 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 Calcified aortic knob is seen. The lungs are clear. No evidence of pleural effusion or pneumothorax. IMPRESSION: No acute chest disease. ACT 112: Negative or not required by law. Electronically signed by: Cesar Raya M.D. 09/30/2023 3:55 PM Videofluoroscopic Swallow 10/01/23 13:30 MODIFIED BARIUM SWALLOW CLINICAL HISTORY: assess for aspiration COMPARISON STUDY: None. FLUOROSCOPY TIME: 1.57 minutes. Ka, r: 9.69 mGy. TECHNIQUE: A modified barium swallow was performed in conjunction with Speech Pathology. The patient ingested varying consistencies of barium containing material. Video fluoroscopy was performed. FINDINGS: Large anterior osteophytes within the mid cervical spine indent the posterior aspect of the hypopharynx and proximal esophagus. This results in retention of several consistencies. Several episodes of a small amount of silent tracheal aspiration with thin liquids and nectar thick liquids were noted. No aspiration was identified with pudding or cracker in pudding consistencies. IMPRESSION: 1. Several episodes of a small amount of silent tracheal aspiration with thin liquids and nectar thick liquids. No aspiration with pudding or cracker and pudding consistencies. 2. Moderate residuals within the vallecula and piriform sinuses with multiple consistencies. 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 3. Full recommendations by speech pathology to follow. ACT 112: Negative or not required by law. Electronically signed by: Constantino Treadwell M.D. 10/01/2023 3:[address] 10/03/23 08:24 CT OF THE HEAD WITHOUT CONTRAST CLINICAL HISTORY: Confusion. COMPARISON STUDY: Head CT October 01, 2023. CTA of the head September 28, 2023. CT DOSE: 547.75 mGy.cm TECHNIQUE: Helical axial images of the head were obtained without IV contrast. Automated exposure control was utilized for the study. A dose lowering technique was utilized adhering to the principles of ALARA. FINDINGS: No acute intracranial hemorrhage, midline shift or mass effect is present. Atrophy is again noted. White matter hypodensities are unchanged and favor small vessel disease. The ventricular system is unremarkable. The basal cisterns are patent. No extra-axial collections are present. There are no findings to suggest acute dural sinus thrombosis or acute territorial infarct. No significant calvarial abnormalities are present. Visualized portions of the sinuses and mastoid air cells are clear. IMPRESSION: No acute intracranial findings. No change in appearance of the brain. ACT 112: Negative or not required by law. Electronically signed by: Constantino Treadwell M.D. 10/03/2023 9:33 AM Ordered Studies 10/01/23 13:30 FL video swallow Routine 10/01/23 13:46 CT Brain [CT head/brain wo con] Routine 10/03/23 08:24 CT head/brain wo con Urgent Hospital Course (1) Stroke-like symptoms: Stroke like symptoms Unsure if due to pacemaker malfunction Less likely TIA/CVA Could not obtain MRI due to pacemaker incompatibility -CT head X2 showed no acute intracranial findings --ECHO: Normal left ventricular wall thickness. Left ventricle wall motion normal. EF 55 to 60%. Aortic valve is trileaflet. Focal calcification of the left coronary cusp of the aortic valve. Mild valvular aortic stenosis. No significant aortic regurgitation. --CTA head and neck showed no significant stenosis. Continue home aspirin Also on Eliquis --Mental status back to baseline per family Continue PT OT Advised to follow-up with neurology if recurrence of symptoms. Patient's understands and agrees with management Plan to discharge home with home health (2) Abnormal ECG: Pacemaker malfunction--POA Device interrogation on 09/30/2022 Reprogramming by about medical service representative on 10/03/2023 Appreciate cardiology input Dysphagia Likely due to large anterior osteophyte --Video Swallow: Several episodes of a small amount of silent tracheal aspiration with thin liquids and nectar thick liquids. No aspiration with pudding or cracker and pudding consistencies.Moderate residuals within the vallecula and piriform sinuses with multiple consistencies. 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 -- Aspiration precautions Appreciate speech therapy recommendations Discussed risks and benefits of permissive aspiration with current diet Family agrees with current management Advised to follow-up with orthopedic spine as outpatient Urinary retention H/O BPH Continue home medications Failed Voiding trial Needs follow-up with urology as outpatient Continue Yen catheter (3) Vascular dementia: -Continue Namenda and Donepezil -Ongoing dementia without any acute confusion (4) HTN (hypertension): -Currently stable -Continue home medications (5) Dyslipidemia: -Currently simvastatin Lipid panel within normal limits (6) Carotid atherosclerosis: -Noted on CTA of the neck per transfer records from [facility] -No significant stenosis to warrant urgent treatment Continue aspirin, statin (7) Atrial fibrillation: Continue amiodarone, metoprolol, Eliquis (8) S/P placement of cardiac pacemaker: Management as above (9) Hypothyroidism: -Continue levothyroxine (10) BPH (benign prostatic hyperplasia): -Continue finasteride, tamsulosin Plan DVT prophylaxis On Eliquis CODE STATUS DNR/DNI Disposition Home with home health Total Time Total Time Spent Total Time Spent (In Minutes): 65 minutes Discharge Plan Discharge Items Patient Disposition: Home - Home Health Services Reason For Visit: STROKE WORKUP; TRANSFER FROM OUTSIDE FACILITY Discharge Diagnosis: Stroke-like symptoms Pacemaker malfunction Dysphagia Urinary retention Activity: Per Instructions section Exercise/Sports: Gradually increase as tolerated Non-emergency contact: Primary Care Provider, Surgeon, Motor And Generator Assembler and Urologist Call non-emergency contact if: you have any medication questions, your symptoms worsen and your pain is concerning for you Follow-up/Referrals: Leilani Tomas DO [Primary Care Provider] - (Date & Time 10/10/2023 11:40 AM Provider Moon Tavares DO Department [facility] ) Diet: Heart Healthy Addtl Attending Provider Instructions: Follow-up with your primary care physician on 10/10/2023 11:40 AM Follow-up with your orthopedic spine surgeon for further evaluation and management of large cervical large anterior osteophyte Follow-up with urology in 1 to 2 weeks for further management of urinary retention as advised Follow-up with your legal entity controller as recommended. Follow-up with your neurologist if your symptoms recur or worsen as advised. Speech therapy recommendations: Supervised oral intake to monitor for any aspiration, difficulty swallowing issues Oral hygiene: [place] teeth and tongue 2 times a day at a minimum. Alternate solids and liquids Supervise all meals Fully alert and upright with feeds Single bites/small sips/slow rate No straws Seek immediate medical attention if your symptoms reoccur or worsen Please take all medications as instructed on discharge list below. Please call if you have any questions or problems. You can reach a [facility] hospitalist on duty at [facility] 24 hours a day by calling [phone] Risk Factors for Stroke: You can reduce your chances of stroke by working with your medical provider to adopt a healthy lifestyle. Some specific ways to lower your chance of stroke are: * If you are a smoker, now is the time to stop smoking cigarettes * If you are diabetic, improve the control of your blood sugars * Avoid excessive amounts of alcohol * Control high blood pressure * Lose weight if you are overweight * Be sure to lead an active lifestyle * Eat a healthy diet low in salt, cholesterol and fat You should know about other risk factors for stroke that you are unable to control. These include: * Age 55 years or older * Male gender * Certain racial groups: , or / * Family History of Stroke, Mini stroke or Heart Attack * Sickle Cell Disease Follow Up: It is important for you to keep your follow up appointments with your medical provider. Who to Call and When: Medical Emergencies: Call 911 immediately if you experience any of the following warning signs and symptoms of Stroke: * Sudden numbness or weakness of the face, arm or leg, especially on one side of the body * Sudden confusion, trouble speaking or understanding * Sudden trouble seeing in one or both eyes * Sudden trouble walking, dizziness, loss of balance or coordination * Sudden severe headache with no cause Do not delay calling 911 if you experience any warning signs or symptoms of a stroke. Delay in seeking medical attention may affect what treatments can be given to you. . Pending Studies at Discharge: No Stand-Alone Forms: [facility], Smoking Cessation Medications and DC Order Prescriptions: Continued Amlodipine (Norvasc) 5 MG tablet 10 mg PO DAILY Qty: 0 GLUCOSAMINE 2 tab PO DAILY Qty: 0 Multivitamin tablet 1 tab PO DAILY Qty: 0 amiodarone 200 mg Tablet 200 mg PO BID lisinopril 20 mg Tablet 20 mg PO BID tamsulosin 0.4 mg Capsule 0.4 mg PO DAILY levothyroxine 50 mcg Tablet 50 mcg PO DAILY metoprolol succinate 25 mg Tablet Extended Release 24 Hr 25 mg PO DAILY finasteride 5 mg Tablet 5 mg PO DAILY memantine 5 mg Tablet 5 mg PO BID Eliquis 2.5 mg PO BID donepezil 10 mg PO DAILY simvastatin 20 mg PO HS Discharge Orders: Discharge Order (Routine); Ordered 10/04/23 Ordered By: Demarcus Bronson Admission Data Admit Date/Time: 09/30/23 13:06 Attending Provider: Demarcus Bronson Admit Provider: Jonathan Loredo Primary Care Provider: Leilani Tomas Other Providers: Romina Dyson Ishraque R.
--- NOTE | 2023-10-09 07:19 | Coding Query ---
CODING QUERY To promote full compliance with coding requirements relating to patient care, provider participation is requested in all cases of fondant puff maker uncertainty. Please assist us with the question(s) below: Coding Question(s): Pt transferred from outside hospital with stroke-like symptoms, altered mental status. Underlying dementia history. Cardiology consulted and pacer found not functioning well- reprogrammed . Please document, if known or suspected, the etiology of the stroke -like symptoms- altered mental status. Thaniks for your help! Orlando Rosenberg PHOTOGEOLOGIST [facility] Physician's Response(s): Likely related to Pacemaker Malfunction Principal Diagnosis: "that condition established after study, to be chiefly responsible for occasioning the admission of the patient to the hospital for care." Co-Existing Principal Diagnosis: "when two or more diagnoses equally meet the criteria for principal diagnosis as determined by the circumstances of admission, diagnostic work up, and/or therapy provided, and the Alphabetic Index, Tabular List, or another coding guideline does not provide sequencing direction, any one of the diagnoses may be sequenced first." "When the physician has documented what appears to be a current diagnosis in the body of the record, but has not included the diagnosis in the final diagnostic statement, the physician should be asked whether the diagnosis should be added." (Source Coding Clinic 2 QTR90. p3-4) JIMMY
== END 2023-10-04 18:03 | disposition home health service (06) | DRG 309 ==
LOC: SUATTDRO 13:06 → 3W 13:06 → 2N 15:47
DX: N40.0 Benign prostatic hyperplasia without lower urinary tract symptoms; I65.29 Occlusion and stenosis of unspecified carotid artery; E78.5 Hyperlipidemia, unspecified; T82.111A Breakdown (mechanical) of cardiac pulse generator (battery), initial encounter; I10 Essential (primary) hypertension; R47.01 Aphasia; I48.91 Unspecified atrial fibrillation; F01.50 Vascular dementia, unspecified severity, without behavioral disturbance, psychotic disturbance, mood disturbance, and anxiety; Z66 Do not resuscitate; E02 Subclinical iodine-deficiency hypothyroidism; R13.10 Dysphagia, unspecified; R29.90 Unspecified symptoms and signs involving the nervous system; I45.4 Nonspecific intraventricular block; I49.5 Sick sinus syndrome; I45.5 Other specified heart block; Z95.0 Presence of cardiac pacemaker; R33.9 Retention of urine, unspecified; Z79.01 Long term (current) use of anticoagulants; Y92.009 Unspecified place in unspecified non-institutional (private) residence as the place of occurrence of the external cause; Y71.2 Prosthetic and other implants, materials and accessory cardiovascular devices associated with adverse incidents; R41.82 Altered mental status, unspecified